=== PATIENT | male | born 1955 | race Caucasian/White ===

== ENCOUNTER 2021-03-18 11:15 | Inpatient (IN) | payer MEDICARE, SELFPAY ==
[2021-03-18] VITALS (45 sets, daily range): BP systolic 58–140; BP diastolic 48–82; PULSE 70–93; RESP 11–27; TEMP 36.1–36.5; O2SAT 79–100; BMI 55.7
--- NOTE | ~2021-03-18 | XR_ITS ---
EXAMINATION: XR hip RT 2V w AP pelvis DATE: 03/31/2021 14:52 INDICATION: Right hip pain TECHNIQUE: Anteroposterior view of the pelvis and anteroposterior and frog-leg lateral views of the r ight hip were obtained. COMPARISON: None. FINDINGS: Alignment is normal. No fracture. Bilateral hip joint spaces are relatively preserved. Mild osteoarth ritis at the bilateral sacroiliac joints. Likely moderate lower lumbar spondylosis. Couple phlebolith s in the left hemipelvis. Atherosclerotic calcifications in the lower abdomen and pelvis and bilatera l inguinal regions. IMPRESSION: 1. No acute osseous abnormality. Reviewed, dictated and finalized at location A.
--- NOTE | ~2021-03-18 | XR_ITS ---
EXAMINATION: XR abdomen/kub 1V DATE: 03/31/2021 14:51 INDICATION: Lower abdominal pain TECHNIQUE: A supine view of the abdomen on 4 radiographs was obtained. COMPARISON: None. FINDINGS: Small amount of gas scattered throughout the large and small bowel with no dilated loops of gas-fille d bowel to suggest obstruction. Couple phleboliths in the left hemipelvis. Moderate lower lumbar spon dylosis. Subcutaneous edema throughout the abdominal wall in both the left and right. IMPRESSION: 1. Normal bowel gas pattern. Reviewed, dictated and finalized at location A.
--- NOTE | ~2021-03-18 | XR_ITS ---
EXAMINATION: XR chest 1V portable DATE: 03/18/2021 12:19 INDICATION: Shortness of breath. TECHNIQUE: A single frontal view of the chest was obtained. COMPARISON: None. FINDINGS: There are airspace opacities in the perihilar regions bilaterally. No pleural effusion or p neumothorax. Cardiomegaly is noted. IMPRESSION: 1. Airspace opacities in the perihilar regions, consistent with pulmonary edema versus pneumonia. 2. Cardiomegaly. Reviewed, dictated and finalized at location A.
--- NOTE | ~2021-03-18 | XR_ITS ---
EXAMINATION: XR chest 1V portable INDICATION: Shortness of breath and cough TECHNIQUE: Portable AP chest at 1336 hours COMPARISON: 03/18/2021 FINDINGS: There is stable cardiomegaly. Perihilar and interstitial opacities persist with slight impr ovement. There is no pleural effusion or pneumothorax. IMPRESSION: 1. Improving perihilar and interstitial airspace opacities, consistent with improved pneumonia versus pulmonary edema. 2. Stable cardiomegaly. Reviewed, dictated and finalized at location A. IMPRESSION: 1. Improving perihilar and interstitial airspace opacities, consistent with imp roved pneumonia versus pulmonary edema. 2. Stable cardiomegaly.
--- NOTE | ~2021-03-18 | CT_ITS ---
EXAMINATION: CT brain wo con DATE: 03/18/2021 13:08 INDICATION: Altered mental status. TECHNIQUE: Computed tomography (CT) of the head was performed without intravenous contrast. The mA wa s adjusted according to patient size. Iterative reconstruction technique was employed. The dose-lengt h product was 1135.00 mGy-cm. COMPARISON: None FINDINGS: There is mild motion artifact. There are scattered areas of low attenuation in the cerebral white matter, which is within normal limits for the patient's age. There is no intracranial hemorrha ge, acute infarction, or abnormal intracranial mass lesion. The ventricles are normal in size. There is mild mucosal thickening in the paranasal sinuses. The orbits are normal. The mastoid air cells are normal. IMPRESSION: 1. Normal aging brain. Reviewed, dictated and finalized at location A. IMPRESSION: 1. Normal aging brain.
--- NOTE | 2021-03-18 11:30 | ECG_ITS ---
Measurements Intervals [place] Rate: 80 P: PA: 0 QRS: 251 QRSD: 186 T: 21 QT: 433 QTc: 502 Interpretive Statements ATRIAL FIBRILLATION RIGHT AXIS DEVIATION RIGHT BUNDLE BRANCH BLOCK BASELINE ARTIFACT- I, II, AVR, V3-V6 ABNORMAL ECG Electronically Signed On 03-18-2021 12:38:00 CDT by Bam Arzate D.O.
[2021-03-18 11:48] LABS: Basophils Absolute Auto 0.1 K/mm3 (0.0-0.1); Basophils Percent Auto 1.1 % (0.2-1.2); Eosinophils Absolute Auto 0.2 K/mm3 (0-0.3); Eosinophils Percent Auto 2.9 % (0-4.4); Hematocrit 32.1 % (42.0-52.0); Hemoglobin 8.5 g/dL (14.0-18.0); Immature Granulocyte Absolute 0.13 K/mm3 (0.00-0.031); Immature Granulocyte Percent A 1.8 % (0-0.5); Lymphocytes Absolute Auto 1.14 K/mm3 (0.9-3.2); Mean Corpuscular HGB Conc 26.5 g/dl (32-36); Mean Corpuscular Hemoglobin 23.3 pg (26-34); Mean Corpuscular Volume 87.9 fl (80-100); Mean Platelet Volume 10.1 fl (7.4-10.4); Monocytes Absolute Auto 1.1 K/mm3 (0.1-0.6); Monocytes Percent Auto 14.9 % (2.6-8.5); Neutrophils Absolute Auto 4.5 K/mm3 (1.3-6.7); Neutrophils Percent Auto 63.3 % (45.5-73.1); Nucleated Red Blood Cells Absolute Auto 0.1 K/mm3 (0.0-0.012); Nucleated Red Blood Cells Perc 0.8 % (0.0-0.2); Platelet Count Result 159 k/mm3 (150-375); Red Blood Count 3.65 M/mm3 (4.6-6.20); Red Cell Distribution Width 22.7 % (11.5-14.5); White Blood Count 7.1 K/mm3 (4.5-10.0)
[2021-03-18 12:01] LABS: Alveolar/Arterial O2 Gradient 91.3 mmHg; Base Excess ABG 13.5 mEq/l (+/-2.0); Carboxyhemoglobin 1.3 % THb (0-2.0); Fractional Inspired Oxygen 40 %; HCO3 ABG 43.8 mEq/l (22.0-26.0); Methemoglobin ABG 0.4 %THb (0-1.5); Oxygen Content ABG 12.7 %vol (16.0-22.0); Oxygen Saturation ABG 91.8 % (95.0-100.0); Oxyhemoglobin 91.3 % THb (90.0-100.0); PO2 ABG 76.3 mmHg (80.0-100.0); PO2 FiO2 Ratio Arterial Blood 1.91 %; Total Hemoglobin 9.8 g/dL (12.0-18.0)
[2021-03-18 12:02] LABS: Device NASAL CANNULA; PCO2 ABG 102.3 mmHg (35.0-45.0); Site Drawn RIGHT BRACHIAL; pH ABG 7.249 (7.350-7.450)
[2021-03-18 12:14] LABS: Anisocytosis 2+ (NORMAL); Hypochromasia 2+ (NORMAL); Platelet Estimate Adequate (Adequate)
[2021-03-18 12:15] LABS: Basophilic Stippling 1+ (NORMAL)
--- NOTE | 2021-03-18 12:51 | ED.SOB ---
HPI - SOB/Dyspnea General Chief Complaint: Shortness of Breath/Dyspnea Stated Complaint: DIFFICULTY BREATHING/AMS Time Seen by Provider: 03/18/21 12:12 Source: family Mode of arrival: EMS Limitations: altered mental status and clinical condition History of Present Illness HPI Narrative: Patient is a 66-year-old male brought in by EMS due to respiratory distress and altered mental status. According to the patient was recently discharged from [facility], was admitted in the ICU, for the same complaints he was diagnosed with elevated CO2 and ammonia. Patient has a history of respiratory failure and CHF. Related Data Home Medications Medication Instructions Recorded Confirmed [id number] 1 cap PO DAILY 03/18/21 acetazolamide 500 mg PO DAILY 03/18/21 bumetanide 1 mg PO BID 03/18/21 03/18/21 ipratropium-albuterol 3 ml INHALATION Q6H PRN 03/18/21 lactulose 10 g PO DAILY 03/18/21 metoprolol tartrate 12.5 mg PO DAILY 03/18/21 montelukast 10 mg PO HS 03/18/21 potassium chloride [Klor-Con M20] 40 meq PO BID 03/18/21 ropinirole 0.25 mg PO HS 03/18/21 warfarin 7.5 mg PO DAILY 03/18/21 Allergies Allergy/AdvReac Type Severity Reaction Status Date / Time No Known Drug Allergies Allergy Verified 03/18/21 14:22 Review of Systems Review of Systems: All systems reviewed & are unremarkable except as noted in HPI and below ROS unobtainable: Yes unobtainable due to medical condition and unobtainable due to mental status PMFSH Comments Past medical history: CHF, COPD, respiratory failure, morbid obesity, hypertension, diabetes, atrial fib Family history: Unknown Social history: Former smoker, recently transferred to a fdc/rehab 2 days ago Exam Const: Limitations: altered mental status Other: Severe distress, morbid obesity, lethargic HENMT: Head: normal to inspection, no contusions and no hematomas General nose exam: Normal nares present Face and sinus: normal facial exam Eyes: Conjunctivae: conjunctivae normal Pupils: Equal, round and reactive pupils present Neck: Neck: normal visual inspection Chest: Chest palpation & inspection: normal inspection of the chest Resp: Other: Respiratory distress, tachypneic, decreased breath sounds bilaterally Cardio: Rate: regular rate Rhythm: regular rhythm GI: Inspection: distended GI Palp: Yes Soft to palpation Skin: General skin exam: normal color, no jaundice and no pallor Neuro: Other: Lethargic Course Vital Signs Vital signs: Vital Signs Temperature 36.5 C 03/18/21 11:11 Pulse Rate 87 03/18/21 11:11 Respiratory Rate 20 03/18/21 11:11 Blood Pressure 123/65 03/18/21 11:11 Pulse Oximetry 98 03/18/21 11:11 Temperature 36.5 C 03/18/21 11:11 Pulse Rate 88 03/18/21 12:35 Respiratory Rate 22 H 03/18/21 12:35 Blood Pressure 123/65 03/18/21 11:11 Pulse Oximetry 98 03/18/21 12:35 MDM - SOB/Dyspnea MDM Narrative Medical decision making narrative: I reviewed his labs, CT head and chest x-ray. Patient's hemoglobin is 8.5 and hematocrit of 32.1. Patient's CO2 is 102 with a pH of 7.24. Patient was placed on BiPAP which markedly improved his condition. Chest x-ray showing pulmonary edema, on BiPAP we will hold Lasix right now since his blood pressure is on the low side. His troponins elevated at 0.286, no STEMI based on EKG, we have no baseline since patient's never been here before, was given aspirin full dose, patient is already on warfarin, hence Lovenox not given. Patient will be admitted for acute respiratory failure. Discussed with the hospitalist and accepted the admit. Differential Diagnosis Differential diagnosis: Likely acute exacerbation of chronic obstructive airways disease, congestive heart failure, community acquired pneumonia, asthma with exacerbation and other (Respiratory failure) Lab Data Attestation: I reviewed the patient's lab results. Result diagrams: 03/18/21 11:33 02/18
[2021-03-18 13:03] LABS: Blood Urea Nitrogen 45 mg/dL (9-20); Calcium 9.1 mg/dL (8.4-10.2); Carbon Dioxide > 40 mmol/L (22-30); Chloride 92 mmol/L (98-107); Estimated Glomerular Filt Rate 47; Glucose 103 mg/dL (75-110); Potassium 3.9 mmol/L (3.4-5.0); Sodium 140 mmol/L (137-145)
[2021-03-18 13:42] LABS: Ammonia 32 umol/L (9-30)
[2021-03-18 13:56] LABS: NT Pro B Type Natriuretic Pept 4800 pg/mL (5-100); Troponin I 0.286 ng/mL (0.000-0.034)
[2021-03-18 15:02] LABS: INR 1.9
[2021-03-18 15:03] LABS: Lactic Acid Reflex 1.5 mmol/L (0.7-2.1)
[2021-03-18 15:04] LABS: Alveolar/Arterial O2 Gradient 56.3 mmHg; Base Excess ABG 11.5 mEq/l (+/-2.0); Carboxyhemoglobin 1.1 % THb (0-2.0); Fractional Inspired Oxygen 30 %; HCO3 ABG 39.5 mEq/l (22.0-26.0); Methemoglobin ABG 0.3 %THb (0-1.5); Oxygen Content ABG 12.3 %vol (16.0-22.0); Oxygen Saturation ABG 91.3 % (95.0-100.0); Oxyhemoglobin 90.5 % THb (90.0-100.0); PO2 ABG 67.7 mmHg (80.0-100.0); PO2 FiO2 Ratio Arterial Blood 2.26 %; Reduced Hemoglobin 8.1 %THb (0-5.0); Total Hemoglobin 9.6 g/dL (12.0-18.0); pH ABG 7.331 (7.350-7.450)
[2021-03-18 15:05] LABS: Device NON-INVASIVE VENT; Modified Allen's Test Pass; Non-Invasive Expiratory Pressure 10 CMH2O; Non-Invasive Inspiratory Pressure 20 CMH2O; Non-Invasive Vent Rate 22 /MIN; PCO2 ABG 76.5 mmHg (35.0-45.0); Site Drawn RIGHT BRACHIAL
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
--- NOTE | 2021-03-18 16:58 | ADMGEN ---
This patient, Stu Andujar, was admitted to IMU Room 204-01. Patient/family oriented to hospital policies and general routines including ID bracelet, bed and alarms, visiting hours, pain management, procedures, bathroom and other care routines, personal items, smoking policy, room service/diet, and visiting hours. Information on how to activate the Rapid Response Team has been discussed. Patient/Family are encouraged to report perceived risks to care and to ask questions if they do not understand what they are told or what they should do.
[2021-03-18] MEDS: ASPIRIN 300 MG SUPPOSITORY RECTAL (17:00)
[2021-03-18 17:59] LABS: Troponin I 0.328 ng/mL (0.000-0.034)
[2021-03-18 20:47] LABS: Base Excess ABG 11.9 mEq/l (+/-2.0); Carboxyhemoglobin 1.1 % THb (0-2.0); Fractional Inspired Oxygen 30 %; HCO3 ABG 38.8 mEq/l (22.0-26.0); Methemoglobin ABG 0.3 %THb (0-1.5); Oxygen Content ABG 11.7 %vol (16.0-22.0); Oxygen Saturation ABG 92.8 % (95.0-100.0); Oxyhemoglobin 91.5 % THb (90.0-100.0); PO2 ABG 68.6 mmHg (80.0-100.0); PO2 FiO2 Ratio Arterial Blood 2.29 %; Reduced Hemoglobin 7.1 %THb (0-5.0); pH ABG 7.383 (7.350-7.450)
[2021-03-18 20:50] LABS: Device NON-INVASIVE VENT; Modified Allen's Test Unable to perform; PCO2 ABG 66.6 mmHg (35.0-45.0); Site Drawn RIGHT RADIAL
[2021-03-18 20:51] LABS: Non-Invasive Expiratory Pressure 10 CMH2O; Non-Invasive Inspiratory Pressure 20 CMH2O; Non-Invasive Vent Rate 22 /MIN
[2021-03-18 21:24] LABS: Troponin I 0.282 ng/mL (0.000-0.034)
[2021-03-18] MEDS: METOPROLOL TARTRATE 12.5 MG TABLET PO (23:36)
[2021-03-18] MEDS: rOPINIRole HCL 0.25 MG TABLET PO (23:37)
[2021-03-18] MEDS: MONTELUKAST SODIUM 10 MG TABLET PO (23:37)
[2021-03-18] MEDS: WARFARIN (*PBKC) 7.5 MG TABLET PO (23:37)
[2021-03-19] VITALS (20 sets, daily range): BP systolic 100–125; BP diastolic 61–85; PULSE 69–104; RESP 16–25; TEMP 36.3–37.1; O2SAT 94–98; BMI 11.0
[2021-03-19 03:47] LABS: Appearance Urine Clear (Clear); Bilirubin Urine 1+ (Negative); Blood Urine 3+ (Negative); Color Urine Yellow (Yellow); Glucose Urine UA Negative (Negative); Ketones Urine Negative (Negative); Leukocyte Esterase Ur Negative LEU/UL (Negative); Nitrate Urine Negative (Negative); Protein Urine 1+ mg/dL (Negative); Specific Grav Ur 1.015 (1.001-1.035); Urobilinogen Urine >=8.0 mg/dL (<2.0); pH Urine 7.5 (5.0-9.0)
[2021-03-19 03:56] LABS: Add Urine Microscopic? YES; Bacteria Urine Trace /hpf; Mucus Urine Rare /lpf; RBC Urine >75 /hpf (0-2); WBC Urine 16-20 /hpf
[2021-03-19 04:36] LABS: Hematocrit 28.7 % (42.0-52.0); Mean Corpuscular HGB Conc 27.9 g/dl (32-36); Mean Corpuscular Hemoglobin 23.1 pg (26-34); Mean Corpuscular Volume 82.9 fl (80-100); Mean Platelet Volume 10.1 fl (7.4-10.4); Platelet Count Result 158 k/mm3 (150-375); Red Blood Count 3.46 M/mm3 (4.6-6.20); Red Cell Distribution Width 23.2 % (11.5-14.5); White Blood Count 7.2 K/mm3 (4.5-10.0)
[2021-03-19 04:50] LABS: INR 2.2
[2021-03-19 05:02] LABS: Alanine Aminotransferase 34 U/L (4-50); Albumin Level 3.4 g/dL (3.5-5.1); Alkaline Phosphatase 88 U/L (38-126); Aspartate Amino Transferase 58 U/L (17-59); Bilirubin,Total 1.7 mg/dL (0.2-1.3); Blood Urea Nitrogen 43 mg/dL (9-20); Calcium 8.9 mg/dL (8.4-10.2); Carbon Dioxide > 40 mmol/L (22-30); Chloride 94 mmol/L (98-107); Estimated CRCL calculation 79 ml/min; Estimated Glomerular Filt Rate 55; Glucose 85 mg/dL (75-110); Magnesium 2.4 mg/dL (1.6-2.3); Phosphorus 3.8 mg/dL (2.5-4.5); Potassium 3.4 mmol/L (3.4-5.0); Sodium 141 mmol/L (137-145)
[2021-03-19 06:32] LABS: Ammonia 48 umol/L (9-30)
[2021-03-19 06:46] LABS: Free T4 Free Thyroxine Reflex 0.86 ng/dL (0.78-2.19)
[2021-03-19 07:50] LABS: Total Triiodothyronine (T3) 0.66 NG/ML (0.97-1.69)
[2021-03-19] MEDS: acetaZOLAMIDE TAB 250 MG TABLET 500 MG BY MOUTH (09:00)
[2021-03-19] MEDS: METOPROLOL TARTRATE 12.5 MG TABLET PO ×2 (09:00→19:57)
[2021-03-19] MEDS: LACTULOSE 20 GM/30 ML UDC PO ×4 (10:46→19:58)
[2021-03-19] MEDS: POTASSIUM CHLORIDE 20 MEQ TABLET.ER 40 MEQ PO ×2 (10:47→17:39)
[2021-03-19] MEDS: BUMETANIDE INJ 1 MG/4 ML VIAL IV PUSH ×2 (10:47→17:39)
--- NOTE | 2021-03-19 14:18 | PM.IMPN ---
Progress Note: A&P Assessment and Plan (1) Acute on chronic respiratory failure with hypoxia and hypercapnia: Code(s): J96.21 - Acute and chronic respiratory failure with hypoxia; J96.22 - Acute and chronic respiratory failure with hypercapnia Status: Acute Assessment and Plan: Patient has been started on BiPAP with improvement in his blood gases. He will remain on BiPAP overnight and he will probably need to be on BiPAP at night exclusively instead of CPAP. ABG SHOW IMPROVEMENT CONTINUES BIPAP AT NIGHTTIME P.R.N. AT DAYTIME (2) CHF exacerbation: Code(s): I50.9 - Heart failure, unspecified Status: Acute Assessment and Plan: Cautious diuresis with close monitoring of renal function, blood pressures, and volume status. Echo results requested from [facility] for review. CONTINUE TO MONITOR INTAKE AND OUTPUT BROWER IN (3) Elevated troponin: Code(s): R77.8 - Other specified abnormalities of plasma proteins Status: Acute Assessment and Plan: Likely related to CHF exacerbation and acute on chronic respiratory failure. No acute changes on EKG and he has no chest pain. Trend to peak. CONTINUE TO MONITOR (4) Encephalopathy: Code(s): G93.40 - Encephalopathy, unspecified Status: Acute Assessment and Plan: Likely due to hypercarbia as he is becoming more alert on BiPAP. Ammonia only slightly elevated. Continue lactulose and repeat ammonia in a.m. LIKELY SECONDARY TO HYPERCARBIA PATIENT ONLY ORIENTED TO PERSON AT THE TIME OF MY VISIT (5) Renal failure: Code(s): N19 - Unspecified kidney failure Status: Acute Assessment and Plan: Patient most likely has chronic renal failure but records have been requested from [facility] for review. Monitor while diuresing. (6) Anemia: Code(s): D64.9 - Anemia, unspecified Status: Acute Assessment and Plan: Patient has chronic anemia. Will continue to trend while hospitalized. (7) Atrial fibrillation: Code(s): I48.91 - Unspecified atrial fibrillation Status: Acute Assessment and Plan: He is rate controlled. ON WARFARIN (8) Chronic anticoagulation: Code(s): Z79.01 - watermelon inspector (current) use of anticoagulants Status: Acute Assessment and Plan: Continue warfarin and monitor INR. (9) Chronic obstructive pulmonary disease: Code(s): J44.9 - Chronic obstructive pulmonary disease, unspecified Status: Acute Assessment and Plan: No acute exacerbation. Continue p.r.n. nebs. NOT ACTIVELY WHEEZING (10) Obstructive sleep apnea: Code(s): G47.33 - Obstructive sleep apnea (adult) (pediatric) Status: Acute Assessment and Plan: BiPAP to be used while hospitalized as above. (11) Morbid obesity: Code(s): E66.01 - Morbid (severe) obesity due to excess calories Status: Acute Assessment and Plan: Patient has been unable to walk from his recent hospitalization. Initiate fall precautions. PT/OT consulted. 1800 CALORIE RESTRICTED DIET Subjective Date/time seen: 03/19/21 14:18 Exam Narrative: Exam Narrative: LAYING IN BED Const: General: ill appearing chronically and patient obtunded Nutritional Appearance: obese morbidly obese Orientation/consciousness: oriented to person Limitations: altered mental status HENMT: Head: normal to inspection and normocephalic Ears: hearing grossly normal bilaterally General nose exam: Normal external nose present Eyes: General: appearance normal, both eyes and all related structures Pupils: Equal, round and reactive pupils present EOM: EOMs intact bilaterally Neck: Neck: normal visual inspection, no lymphadenopathy, supple and no JVD Resp: Effort & Inspection: normal respiratory effort Auscultation: clear to auscultation bilaterally Cardio: Jugular venous distension: no JVD Rate: regular rate Rhythm: regular rhythm Heart sounds: S1
--- NOTE | 2021-03-19 16:40 | PM.CNCAR ---
Assessment and Plan Additional Plan This is a 66-year-old man Admitted to the hospital with confusion and what appears to be CO2 narcosis on his blood gases. With initiation of BiPAP therapy this rapidly improved. He is a gentleman with chronic atrial fibrillation, he has a chronic right bundle branch block and according to his patient resource specialist's notes is known to have left ventricular ejection fraction that is either in the low 50s or high 40s and has been for a number of years. This was just recently re-evaluated last week when he was in the hospital over in [place]. There is no evidence of any new cardiac pathology here that would merit further investigation workup at [facility]. I suspect he was probably sleeping at [facility] without is BiPAP on and for that reason became hypercarbic. The only cardiac recommendations would be to continue the modest dose of metoprolol that is being used for rate control and warfarin for systemic anticoagulation. Victorino Santizo MD [facility] History of Present Illness History of Present Illness Consult date/time: 03/19/21 16:40 Consult reason: atrial fibrillation Reason For Visit: Acute respiratory failure/pulmonary edema Narrative: This is a 66-year-old man I am seeing at the request of the hospitalist because of atrial fibrillation and right bundle branch block. The patient is known to the cardiovascular physicians at [facility] up in [place] and was hospitalized here yesterday when he was just at [facility] for something like 24 hours after a recent discharge from the hospital over in [place]. According to the records he is known to have morbid obesity with obstructive sleep apnea and a history of hypercarbic respiratory failure as a result of that. He supposed to be on either a CPAP or a BiPAP mask and was sent [facility] yesterday because of what appears to be CO2 narcosis. Patient's blood gas on admission showed a respiratory acidosis with a CO2 level of 102 which were corrected nicely with BiPAP treatment and he became much more responsive. He was sent here from [facility] with that picture of poorly responsiveness. His electrocardiogram shows atrial fibrillation and right bundle branch block his chest x-ray shows an enlarged cardiac silhouette. The patient has a history of low my Petterchak mildly reduced or low normal left ventricular ejection fraction according to the patient resource specialist note from [place]. His ejection fraction has been in the high 40s to low 50s for a long time. The patient has worsening ability to care for himself his was unable to care for him because of his massive obesity and need for that reason has recently been institutionalized. He is awake alert conversant at this time and seems to be aware that he is in the hospital but not aware and alert to other spheres. He is not reporting any other cardiac symptomatology currently. Review of Systems Review of Systems: ROS unobtainable: Yes unobtainable due to mental status PMFSH Past Medical History Medical History (Updated 03/18/21 @ 21:32 by Juana Rahman PA-C) Atrial fibrillation Chronic anticoagulation Chronic obstructive pulmonary disease On 4 liters nasal cannula. Chronic respiratory failure Congestive heart failure Degenerative disc disease Folate deficiency Gastroesophageal reflux disease Morbid obesity Obstructive sleep apnea Pulmonary hypertension Secondary polycythemia Tobacco dependence Surgical History Surgical History History of orthopedic surgery ORIF bilateral ankle fracture. History of tonsillectomy Family History Family History (Updated 03/18/21 @ 21:20 by Juana Rahman PA-C) Other Unknown family medical history Social History Social History (Updated 03/18/21 @ 21:22 by Juana Rahman PA-C) Social History: The patient lives in [place] with his , Betty. He has 1 grown daughter.
[2021-03-19] MEDS: WARFARIN (*PBKC) 7.5 MG TABLET PO (18:13)
[2021-03-19] MEDS: rOPINIRole HCL 0.25 MG TABLET PO (19:57)
[2021-03-19] MEDS: MONTELUKAST SODIUM 10 MG TABLET PO (19:58)
[2021-03-20] VITALS (19 sets, daily range): BP systolic 100–117; BP diastolic 59–81; PULSE 59–81; RESP 20–26; TEMP 36.1–36.7; O2SAT 92–100; BMI 10.0
--- NOTE | 2021-03-20 | ECHO_ITS ---
Patient Info Name: Stu Andujar Age: 66 years : 1955 Gender: Male Ht: 70 in Wt: 388 lbs BSA: 3.05 m2 HR: 82 bpm BP: 107 / 67 mmHg Heart Rhythm: Atrial Fibrillation Technical Quality: Good Exam Date: 03/20/2021 1:39 PM Exam Location: [facility] Pulmonary Patient Status: Inpatient Admit Date: 03/18/2021 Staff Ordering Physician: Tyler Stone MD Rn Occupational Health: David Chavez, DEE DEE, RT Attending Provider: Asmita Rodríguez MD Referring Physician: Bertha FLEMING; Exam Type: CA echo dop color flow w con Study Info Indications I50.9 - Heart failure, unspecified Complete two-dimensional, color flow and Doppler transthoracic echocardiogram is performed with contrast to opacify the left ventricle and to improve the deliniation of the left ventricle endocardial borders. Summary 1. Left ventricular chamber dimension is severely enlarged. 2. Left ventricular systolic function is moderately reduced, estimated at 35-40%. 3. There is moderately increased left ventricular wall thickness. 4. The left ventricular diastolic function is indeterminate. 5. Right ventricular chamber dimension is moderately enlarged. 6. Right ventricular systolic function is reduced. 7. Left atrial chamber dimension is severely enlarged. 8. Right atrial chamber dimension is severely enlarged. 9. There is moderate to severe mitral valve regurgitation. 10. There is mild tricuspid valve regurgitation. 11. Moderate pulmonary hypertension, estimated pulmonary arterial systolic pressure is 50 mmHg. 12. The aortic root size at the sinus of Valsalva is mildly dilated. 13. There is mild aortic atherosclerosis. 14. Dilated inferior vena cava with <50% collapse upon inspiration consistent with elevated right atrial pressure, 20 mmHg. Left Ventricle Left ventricular chamber dimension is severely enlarged. Left ventricular systolic function is moderately reduced, estimated at 35-40%. There is moderately increased left ventricular wall thickness. The left ventricular diastolic function is indeterminate. Right Ventricle Right ventricular chamber dimension is moderately enlarged. Right ventricular systolic function is reduced. Left Atria Left atrial chamber dimension is severely enlarged. Right Atria Right atrial chamber dimension is severely enlarged. Atrial Septum Intact interatrial septum visualized by color flow imaging. Aortic Valve The aortic valve is trileaflet. There is mild aortic valve sclerosis. There is no aortic valve stenosis. There is trace aortic valve regurgitation. Pulmonic Valve The pulmonic valve is normal. There is no pulmonic valve stenosis. There is trace pulmonic regurgitation. Mitral Valve The mitral valve has thickened leaflets. There is no mitral valve stenosis. There is moderate to severe mitral valve regurgitation. Tricuspid Valve The tricuspid valve leaflets are normal. There is no significant tricuspid valve stenosis. There is mild tricuspid valve regurgitation. Moderate pulmonary hypertension, estimated pulmonary arterial systolic pressure is 50 mmHg. Pericardium/Pleural The pericardium appears normal. There is no pericardial effusion. Inferior Vena Cava Dilated inferior vena cava with <50% collapse upon inspiration consistent with elevated right atrial pressure, 20 mmHg. Aorta The aortic root size at the sinus of Valsalva is mildly dilated. There is mild aortic atherosclerosis. Left Ventricular Outflow Tract ----
[2021-03-20] MEDS: POTASSIUM CHLORIDE 20 MEQ TABLET.ER 40 MEQ PO ×2 (08:09→18:17)
[2021-03-20] MEDS: METOPROLOL TARTRATE 12.5 MG TABLET PO ×2 (08:09→21:07)
[2021-03-20] MEDS: acetaZOLAMIDE TAB 250 MG TABLET 500 MG BY MOUTH (08:09)
[2021-03-20] MEDS: BUMETANIDE INJ 1 MG/4 ML VIAL IV PUSH ×2 (08:09→18:17)
[2021-03-20] MEDS: LACTULOSE 20 GM/30 ML UDC PO ×4 (08:10→21:08)
--- NOTE | 2021-03-20 09:05 | P.CDI_ITS ---
CDI Query Clarification Request Encephalopathy has been documented, please clarify type if known: * metabolic * toxic * other * unknown <CARLOS Baca - Last Filed: 03/20/21 09:07> Clarified Diagnosis (1) Metabolic encephalopathy: Code(s): G93.41 - Metabolic encephalopathy <CARLOS Baca - Last Filed: 03/20/21 09:07> Status: Acute <CARLOS Baca - Last Filed: 03/20/21 09:07>
--- NOTE | 2021-03-20 10:29 | PM.IMPN ---
Progress Note: A&P Assessment and Plan (1) Acute on chronic respiratory failure with hypoxia and hypercapnia: Code(s): J96.21 - Acute and chronic respiratory failure with hypoxia; J96.22 - Acute and chronic respiratory failure with hypercapnia Status: Acute Assessment and Plan: Patient has been started on BiPAP with improvement in his blood gases. He will remain on BiPAP overnight and he will probably need to be on BiPAP at night exclusively instead of CPAP. ABG SHOW IMPROVEMENT CONTINUES BIPAP AT NIGHTTIME P.R.N. AT DAYTIME consult pulmonary for further recommendations (2) CHF exacerbation: Code(s): I50.9 - Heart failure, unspecified Status: Acute Assessment and Plan: Cautious diuresis with close monitoring of renal function, blood pressures, and volume status. Echo results requested from [place] for review. cont current care cardio following (3) Elevated troponin: Code(s): R77.8 - Other specified abnormalities of plasma proteins Status: Acute Assessment and Plan: Likely related to CHF exacerbation and acute on chronic respiratory failure. seen by cardiology and no new recs given (4) Encephalopathy: Code(s): G93.40 - Encephalopathy, unspecified Status: Acute Assessment and Plan: Likely due to hypercarbia as he is becoming more alert on BiPAP. Ammonia only slightly elevated. Continue lactulose and repeat ammonia in a.m. LIKELY SECONDARY TO HYPERCARBIA (5) Renal failure: Code(s): N19 - Unspecified kidney failure Status: Acute Assessment and Plan: Patient most likely has chronic renal failure but records have been requested from [place] for review. Monitor while diuresing. (6) Anemia: Code(s): D64.9 - Anemia, unspecified Status: Acute Assessment and Plan: Patient has chronic anemia. Will continue to trend while hospitalized. (7) Atrial fibrillation: Code(s): I48.91 - Unspecified atrial fibrillation Status: Acute Assessment and Plan: He is rate controlled. ON WARFARIN (8) Chronic anticoagulation: Code(s): Z79.01 - shelter (current) use of anticoagulants Status: Acute Assessment and Plan: Continue warfarin and monitor INR. (9) Chronic obstructive pulmonary disease: Code(s): J44.9 - Chronic obstructive pulmonary disease, unspecified Status: Acute Assessment and Plan: No acute exacerbation. Continue p.r.n. nebs. NOT ACTIVELY WHEEZING (10) Obstructive sleep apnea: Code(s): G47.33 - Obstructive sleep apnea (adult) (pediatric) Status: Acute Assessment and Plan: BiPAP to be used while hospitalized as above. (11) Morbid obesity: Code(s): E66.01 - Morbid (severe) obesity due to excess calories Status: Acute Assessment and Plan: Patient has been unable to walk from his recent hospitalization. Initiate fall precautions. PT/OT consulted. 1800 CALORIE RESTRICTED DIET Additional Plan 03/20/2021 Patient admitted with acute exacerbation of CHF and acute hypoxemic hypercapnic respiratory failure with AMS. He remains on BiPAP. His case has been reviewed with respiratory therapy and RN. He is noted to be BiPAP dependent at this time although no repeat ABGs have been performed. Order placed for Dr. Arauz's expert consultation. Continue current care Patient will require ongoing inpatient hospitalization. Time Spent With Patient Time with patient: 25 - 35 minutes Subjective Date/time seen: 03/20/21 10:29 Patient has no complaints at time of my interview. He is able to tell me who the enrollment services vice president is and the year, however, he is unclear about where he lives. Exam Narrative: Exam Narrative: LAYING IN BED Const: General: ill appearing chronically Nutritional Appearance: obese morbidly obese Orientation/consciousness: oriented to person, oriented to time and confusio
--- NOTE | 2021-03-20 11:55 | PM.CNPUL ---
Assessment and Plan Assessment and plan (1) Acute on chronic respiratory failure with hypoxia and hypercapnia: Code(s): J96.21 - Acute and chronic respiratory failure with hypoxia; J96.22 - Acute and chronic respiratory failure with hypercapnia Status: Acute Assessment and Plan: Patient with a history of morbid obesity and now with acute on chronic hypercarbic and hypoxemic respiratory failure. The patient has alveolar hypoventilation syndrome in addition to his reported obstructive sleep apnea and fluid overload with a blood gas of 7.25/102/76 on 5 L nasal cannula on presentation. the patient has chronic hypercarbic respiratory failure and would benefit from noninvasive ventilation to prevent further deterioration and hospitalizations. the patient said the BiPAP 20/10 was uncomfortable and I have placed him on AVAPS mode rate of 18/tidal volume 550, EPAP 10, inspiratory pressure min 11, inspiratory pressure max 25, inspiratory time 1.0 seconds, rise 3, 30% FIO2. I will check a blood gas in the morning to assess his ventilation and oxygenation. I agree with aggressive diuresis as tolerated by hospitalist and aurist team. Patient currently on Bumex and acetazolamide. will follow his pH and bicarb on these medicines. I do not think the patient has an active pneumonia and do not think he needs antibiotics from a respiratory viewpoint. I do not think the patient has a COPD exacerbation and do not feel he needs bronchodilators or inhaled or systemic steroids at this point. discussed with Dr. Reddy. Will follow with you. History of Present Illness History of Present Illness Consult date: 03/20/21 Requesting physician: Chana Reddy MD Reason for consult: hypoxemia Chief complaint: Acute respiratory failure/pulmonary edema Narrative: This is a new pulmonary consult for hypoxemic and hypercarbic respiratory failure. Cyst 66-year-old man with a history of morbid obesity, Afib on warfarin, obstructive sleep apnea on CPAP for about 5 years presented to the hospital with altered mental status and acute on chronic hypercarbic and hypoxemic respiratory failure. Patient was living at home until about 3 weeks ago and then was admitted to an outside hospitals ICU according to the daughter. At that time the patient was diuresed aggressively and he was debilitated and was sent to [facility]. Patient had been at the half-way for a few days when he had an altered mental status and was sent to the emergency department and had a blood gas of 7.25/102/76 on 5 L nasal cannula. Patient was placed on BiPAP 20/10 with 30% and his blood gas 7.33/77/68 and a repeat 5 hours later was 7 pH of 7.38/66/68. Patient has been diuresed with Lasix IV. 03/20/2021 today when I talked to the patient he denies fever, chills, cough, rigors, chest pain, phlegm production or hemoptysis. He is currently wearing BiPAP 20/10 but says that the pressure is too much for him. I changed him to an AVAPS mode rate of 18/tidal volume 550, EPAP 10, inspiratory pressure min 11, inspiratory pressure max 25, inspiratory time 1.0 seconds, rise 3. He stated that these settings felt much better. Patient was awakened requesting the BiPAP off and we placed him on 2 L nasal cannula saturations are 96%. The daughter states that he has been wearing CPAP for about 5 years she does not know the settings and the patient thinks that [employer] is his [employer] company. I have no sleep studies are no downloads at this point. Patient states that he uses oxygen during the day but does not know how much and he also uses oxygen with his CPAP but does not know how much. Patient smoked tobacco from age 16 to about 10 years ago and he quit intermittently throughout that period, he is exposed to secondhand smoke through his he has no exposure to marijuana, electronic cigarettes, illicit drug use, sandblasting, wel
[2021-03-20] MEDS: PERFLUTREN LIPID MICROSPHERES 1.5 ML VIAL DILUTED TO 10 ML TOTAL VOLUME IV PUSH (14:22)
[2021-03-20] MEDS: ACETAMINOPHEN 325 MG TABLET 650 MG PO (15:24)
[2021-03-20] MEDS: WARFARIN (*PBKC) 7.5 MG TABLET PO (18:17)
[2021-03-20] MEDS: MONTELUKAST SODIUM 10 MG TABLET PO (21:07)
[2021-03-20] MEDS: rOPINIRole HCL 0.25 MG TABLET PO (21:07)
[2021-03-21] VITALS (25 sets, daily range): BP systolic 98–134; BP diastolic 46–90; PULSE 58–99; RESP 14–20; TEMP 36.1–36.8; O2SAT 91–100
[2021-03-21 04:53] LABS: Basophils Absolute Auto 0.1 K/mm3 (0.0-0.1); Eosinophils Absolute Auto 0.3 K/mm3 (0-0.3); Eosinophils Percent Auto 4.7 % (0-4.4); Hematocrit 29.7 % (42.0-52.0); Hemoglobin 8.1 g/dL (14.0-18.0); Immature Granulocyte Absolute 0.03 K/mm3 (0.00-0.031); Immature Granulocyte Percent A 0.5 % (0-0.5); Lymphocytes Absolute Auto 1.28 K/mm3 (0.9-3.2); Lymphocytes Percent Auto 20.7 % (18.3-44.2); Mean Corpuscular HGB Conc 27.3 g/dl (32-36); Mean Corpuscular Volume 84.4 fl (80-100); Mean Platelet Volume 9.7 fl (7.4-10.4); Monocytes Absolute Auto 0.8 K/mm3 (0.1-0.6); Monocytes Percent Auto 13.1 % (2.6-8.5); Neutrophils Absolute Auto 3.7 K/mm3 (1.3-6.7); Nucleated Red Blood Cells Perc 0.3 % (0.0-0.2); Platelet Count Result 155 k/mm3 (150-375); Red Blood Count 3.52 M/mm3 (4.6-6.20); Red Cell Distribution Width 22.7 % (11.5-14.5); White Blood Count 6.2 K/mm3 (4.5-10.0)
[2021-03-21 05:02] LABS: Blood Urea Nitrogen 35 mg/dL (9-20); CRP 3.4 mg/dL (<1.0); Calcium 8.5 mg/dL (8.4-10.2); Carbon Dioxide > 40 mmol/L (22-30); Chloride 95 mmol/L (98-107); Estimated CRCL calculation 85 ml/min; Estimated Glomerular Filt Rate 60; Glucose 88 mg/dL (75-110); Magnesium 2.1 mg/dL (1.6-2.3); Potassium 3.5 mmol/L (3.4-5.0); Sodium 142 mmol/L (137-145)
[2021-03-21 05:13] LABS: Alveolar/Arterial O2 Gradient 53.5 mmHg; Base Excess ABG 8.9 mEq/l (+/-2.0); Fractional Inspired Oxygen 30 %; HCO3 ABG 36.1 mEq/l (22.0-26.0); Oxygen Content ABG 12.5 %vol (16.0-22.0); Oxygen Saturation ABG 95.2 % (95.0-100.0); Oxyhemoglobin 93.9 % THb (90.0-100.0); PO2 FiO2 Ratio Arterial Blood 2.73 %; Total Hemoglobin 9.4 g/dL (12.0-18.0)
[2021-03-21 05:15] LABS: Modified Allen's Test Pass; PCO2 ABG 66.7 mmHg (35.0-45.0); Site Drawn LEFT RADIAL
[2021-03-21 05:16] LABS: Device OTHER DEVICE
[2021-03-21 05:19] LABS: pH ABG 7.351 (7.350-7.450)
[2021-03-21 05:44] LABS: Anisocytosis 1+ (NORMAL); Atypical Lymphocytes Present; Platelet Estimate Adequate (Adequate)
[2021-03-21] MEDS: BUMETANIDE INJ 1 MG/4 ML VIAL IV PUSH (08:21)
[2021-03-21] MEDS: POTASSIUM CHLORIDE 20 MEQ TABLET.ER 40 MEQ PO ×2 (08:21→16:28)
[2021-03-21] MEDS: LACTULOSE 20 GM/30 ML UDC PO ×4 (08:21→20:49)
[2021-03-21] MEDS: METOPROLOL TARTRATE 12.5 MG TABLET PO ×2 (08:21→20:49)
[2021-03-21] MEDS: acetaZOLAMIDE TAB 250 MG TABLET 500 MG BY MOUTH (08:22)
[2021-03-21] MEDS: ACETAMINOPHEN 325 MG TABLET 650 MG PO (08:23)
--- NOTE | 2021-03-21 10:11 | PM.PNPUL ---
Progress Note: A&P Assessment and Plan (1) Acute on chronic respiratory failure with hypoxia and hypercapnia: Code(s): J96.21 - Acute and chronic respiratory failure with hypoxia; J96.22 - Acute and chronic respiratory failure with hypercapnia Status: Acute Assessment and Plan: 03/20 Patient with a history of morbid obesity and now with acute on chronic hypercarbic and hypoxemic respiratory failure. The patient has alveolar hypoventilation syndrome in addition to his reported obstructive sleep apnea and fluid overload with a blood gas of 7.25/102/76 on 5 L nasal cannula on presentation. He also has biventricular failure with moderately enlarged RV with PASP 50 and moderate to severe MR. The patient has chronic hypercarbic respiratory failure from alveolar hypoventilation and morbid obesity and would benefit from noninvasive ventilation to prevent further deterioration and hospitalizations. The patient said the BiPAP 20/10 woith 30% with ABG of 7.38/67/69 but was uncomfortable and I have placed him on AVAPS mode rate of 18/tidal volume 550, EPAP 10, inspiratory pressure min 11, inspiratory pressure max 25, inspiratory time 1.0 seconds, rise 3, 30% FIO2. I will check a blood gas in the morning to assess his ventilation and oxygenation. I do not think the patient has an active pneumonia and do not think he needs antibiotics from a respiratory viewpoint. I do not think the patient has a COPD exacerbation and do not feel he needs bronchodilators or inhaled or systemic steroids at this point. 03/21 Patient wore AVAPS mode respiratory rate 18, tidal volume 550, EPAP 10, IPAP min 11, IPAP max 25, 30%, inspiratory time 1.0 seconds, rise 3 overnight with ABG at the end of the night of 7.35/68/82. He has LVEF 35-40%, moderately enlarged RV with reduced function, severely enlarged RA and LA, moderate to severe MR, mild TR with PASP 50. I obtained a download from his [employer] from 12/15-03/14. Patient was wearing CPAP 17 up until 03/03 every night with an average usage days used of 10 10 hours and 18 minutes. His AHI was 2.3, his apnea index was 1.4, his hypopnea index was 0.9. His central apnea index was 0.1, obstructive apnea index 0.1 he had no Quirino-Moore his median leak was 22.3, 95th percentile leak was 55.8 and his maximum leak was 67.1. Overall sara has been compliant but CPAP is not sufficient to treat his obesity hypoventilation syndrome and now requires noninvasive ventilation. Will increase AVAPS RR to 22 and obtain apnea link tonight on 30%. Will follow with you. (2) Fluid overload: Code(s): E87.70 - Fluid overload, unspecified Status: Acute Assessment and Plan: I agree with aggressive diuresis as tolerated by hospitalist and hand finisher team. Patient currently on Bumex 1 IV BID and acetazolamide 500 PO Q day. 03/18 Minus 350 03/19 minus 1660 03/20 minus 1320, will discuss DC acetazolamide with hosptialist. Subjective Date/time seen: 03/21/21 10:11 Interval history: 03/20 This is a new pulmonary consult for hypoxemic and hypercarbic respiratory failure. 66-year-old man with a history of morbid obesity, Afib on warfarin, obstructive sleep apnea on CPAP for about 5 years presented to the hospital with altered mental status and acute on chronic hypercarbic and hypoxemic respiratory failure. Patient was living at home until about 3 weeks ago and then was admitted to an outside hospitals ICU according to the daughter. At that time the patient was diuresed aggressively and he was debilitated and was sent to [facility]. [facility] a [facility] days when he had an altered mental status and was sent to the emergency department and had a blood gas of 7.25/102/76 on 5 L nasal cannula. Patient was placed on BiPAP 20/10 with 30% and his blood gas 7.33/77/68 and a repeat 5 hours later was 7 pH of 7.38/66/68. Patient has been diuresed with Lasix IV.
[2021-03-21 11:37] LABS: INR 3.5; Prothrombin Time 35.4 Seconds (11.1-14.7)
--- NOTE | 2021-03-21 12:50 | PM.IMPN ---
Progress Note: A&P Assessment and Plan (1) Metabolic encephalopathy: Code(s): G93.41 - Metabolic encephalopathy Status: Acute (2) Fluid overload: Code(s): E87.70 - Fluid overload, unspecified Status: Acute (3) Anemia: Code(s): D64.9 - Anemia, unspecified Status: Acute (4) Renal failure: Code(s): N19 - Unspecified kidney failure Status: Acute (5) Elevated troponin: Code(s): R77.8 - Other specified abnormalities of plasma proteins Status: Acute (6) CHF exacerbation: Code(s): I50.9 - Heart failure, unspecified Status: Acute (7) Acute on chronic respiratory failure with hypoxia and hypercapnia: Code(s): J96.21 - Acute and chronic respiratory failure with hypoxia; J96.22 - Acute and chronic respiratory failure with hypercapnia Status: Acute (8) Gastroesophageal reflux disease: Code(s): K21.9 - Gastro-esophageal reflux disease without esophagitis Status: Acute (9) Pulmonary hypertension: Code(s): I27.20 - Pulmonary hypertension, unspecified Status: Acute (10) Chronic obstructive pulmonary disease: Code(s): J44.9 - Chronic obstructive pulmonary disease, unspecified Status: Acute (11) Chronic anticoagulation: Code(s): Z79.01 - [facility] (current) use of anticoagulants Status: Acute (12) Atrial fibrillation: Code(s): I48.91 - Unspecified atrial fibrillation Status: Acute (13) Tobacco dependence: Code(s): F17.200 - Nicotine dependence, unspecified, uncomplicated Status: Acute (14) Obstructive sleep apnea: Code(s): G47.33 - Obstructive sleep apnea (adult) (pediatric) Status: Acute (15) Congestive heart failure: Code(s): I50.9 - Heart failure, unspecified Status: Acute (16) Morbid obesity: Code(s): E66.01 - Morbid (severe) obesity due to excess calories Status: Acute (17) Acute hypercapnic respiratory failure: Code(s): J96.02 - Acute respiratory failure with hypercapnia Status: Acute (18) Carbon dioxide narcosis: Code(s): R06.89 - Other abnormalities of breathing Status: Acute (19) Pulmonary edema: Qualifiers: Chronicity: acute Qualified Code(s): J81.0 - Acute pulmonary edema Code(s): J81.1 - Chronic pulmonary edema Status: Acute Additional Plan 03/20/2021 Patient admitted with acute exacerbation of CHF and acute hypoxemic hypercapnic respiratory failure with AMS. He remains on BiPAP. His case has been reviewed with respiratory therapy and RN. He is noted to be BiPAP dependent at this time although no repeat ABGs have been performed. Order placed for Dr. Arauz's expert consultation. Continue current care Patient will require ongoing inpatient hospitalization. 03/21/21 pt improving cardiology on board will follow recs for BiVent systolic failure intermittent bipap change diuretics to lasix 40mg IV BID c/s career specialist for assistance w LTAC (BiPAP dependent, needs agressive rehab) Subjective Date/time seen: 03/21/21 12:50 pt starting to feel better complains of all over body ache chronic usually takes Tylenol but not working now. POC reviewed at length w pulmonology recs appreciated Interval history: 03/20 This is a new pulmonary consult for hypoxemic and hypercarbic respiratory failure. 66-year-old man with a history of morbid obesity, Afib on warfarin, obstructive sleep apnea on CPAP for about 5 years presented to the hospital with altered mental status and acute on chronic hypercarbic and hypoxemic respiratory failure. Patient was living at home until about 3 weeks ago and then was admitted to an outside hospitals ICU according to the daughter. At that time the patient was diuresed aggressively and he was debilitated and was sent to [facility]. Patient had been at the assisted for a few days when he had an altered mental status and was sen
[2021-03-21] MEDS: FUROSEMIDE INJ 40 MG/4 ML VIAL IV PUSH (16:28)
[2021-03-21] MEDS: traMADol HCL (*CRX) 50 MG TABLET PO (16:29)
[2021-03-21] MEDS: rOPINIRole HCL 0.25 MG TABLET PO (20:49)
[2021-03-21] MEDS: MONTELUKAST SODIUM 10 MG TABLET PO (20:49)
[2021-03-22] VITALS (20 sets, daily range): BP systolic 102–124; BP diastolic 30–90; PULSE 55–96; RESP 19–24; TEMP 35.9–36.7; O2SAT 94–99; BMI 57.5
[2021-03-22 08:19] LABS: INR 3.5; Prothrombin Time 35.8 Seconds (11.1-14.7)
[2021-03-22] MEDS: FUROSEMIDE INJ 40 MG/4 ML VIAL IV PUSH ×2 (09:43→17:11)
[2021-03-22] MEDS: LACTULOSE 20 GM/30 ML UDC PO ×3 (09:44→21:10)
[2021-03-22] MEDS: METOPROLOL TARTRATE 12.5 MG TABLET PO ×2 (09:44→21:11)
[2021-03-22] MEDS: POTASSIUM CHLORIDE 20 MEQ TABLET.ER 40 MEQ PO ×2 (09:44→17:11)
--- NOTE | 2021-03-22 12:03 | PM.PNPUL ---
Progress Note: A&P Assessment and Plan (1) Acute on chronic respiratory failure with hypoxia and hypercapnia: Code(s): J96.21 - Acute and chronic respiratory failure with hypoxia; J96.22 - Acute and chronic respiratory failure with hypercapnia Status: Acute Assessment and Plan: 03/20 Patient with a history of morbid obesity and now with acute on chronic hypercarbic and hypoxemic respiratory failure. The patient has alveolar hypoventilation syndrome in addition to his reported obstructive sleep apnea and fluid overload with a blood gas of 7.25/102/76 on 5 L nasal cannula on presentation. He also has biventricular failure with moderately enlarged RV with PASP 50 and moderate to severe MR. The patient has chronic hypercarbic respiratory failure from alveolar hypoventilation and morbid obesity and would benefit from noninvasive ventilation to prevent further deterioration and hospitalizations. The patient said the BiPAP 20/10 woith 30% with ABG of 7.38/67/69 but was uncomfortable and I have placed him on AVAPS mode rate of 18/tidal volume 550, EPAP 10, inspiratory pressure min 11, inspiratory pressure max 25, inspiratory time 1.0 seconds, rise 3, 30% FIO2. I will check a blood gas in the morning to assess his ventilation and oxygenation. I do not think the patient has an active pneumonia and do not think he needs antibiotics from a respiratory viewpoint. I do not think the patient has a COPD exacerbation and do not feel he needs bronchodilators or inhaled or systemic steroids at this point. 03/21 Patient wore AVAPS mode respiratory rate 18, tidal volume 550, EPAP 10, IPAP min 11, IPAP max 25, 30%, inspiratory time 1.0 seconds, rise 3 overnight with ABG at the end of the night of 7.35/68/82. He has LVEF 35-40%, moderately enlarged RV with reduced function, severely enlarged RA and LA, moderate to severe MR, mild TR with PASP 50. I obtained a download from his [employer] from 12/15-03/14. Patient was wearing CPAP 17 up until 03/03 every night with an average usage days used of 10 10 hours and 18 minutes. His AHI was 2.3, his apnea index was 1.4, his hypopnea index was 0.9. His central apnea index was 0.1, obstructive apnea index 0.1 he had no Quirino-Moore his median leak was 22.3, 95th percentile leak was 55.8 and his maximum leak was 67.1. Overall sara has been compliant but CPAP is not sufficient to treat his obesity hypoventilation syndrome and now requires noninvasive ventilation. Will increase AVAPS RR to 22 and obtain apnea link tonight on 30%. 6/4 Feeling better today. Wore AVAPS mode respiratory rate 18, tidal volume 550, EPAP 10, IPAP min 11, IPAP max 25, 30%, inspiratory time 1.0 seconds, rise 3 overnight and did well. Overnight oximetry demonstrated a average saturation of 95%, lowest saturation was 91%. Time with saturation less than or equal to 88% was 0 minutes. Reordered RR increase to 22. While at [place] continue AVAPS mode respiratory rate 22, tidal volume 550, EPAP 10, IPAP min 11, IPAP max 25, FIO2 30%, inspiratory time 1.0 seconds, rise 3 overnight at night and when sleeps during day. [facility] may or may not be able to support AVAPS-AE noninvasive ventilation which would be best for patient. If they do not administter AVAPS AE NIV then he should be discharged on BiPAP 20/10 with 3 L bleed in. Ready for discharge from pulmonary perspective on: Trilogy with AVAPS-AE respiratory rate 22, tidal volume 550, EPAP min 8, EPAP max 18, PSV min 5, PSV max 25, inspiratory time 1.0 seconds, 3 liters bleed in. If trilogy not supported then BiPAP with back up rate 22, IPAP 20, EPAP 10, 3 liters bleed in. Discussed with Dr. Reddy, will sign off, call with questions. (2) Fluid overload: Code(s): E87.70 - Fluid overload, unspecified Status: Acute Assessment and Plan: I agree with aggressive diuresis as tolerated by hospitalist and full service supervisor team. Patient currently on Bumex 1 IV BID and
--- NOTE | 2021-03-22 15:38 | PC.NURSE ---
This patient, Stu Andujar, was transferred to [facility] on 03/22/21 at 1530. Personal belongings sent with patient. Report given to Dennise REINA. Appropriate documentation sent with patient.
[2021-03-22 16:59] LABS: Glucose Point of Care 137 mg/dl (65-105)
[2021-03-22 17:34] LABS: Hematocrit 32.4 % (42.0-52.0); Hemoglobin 8.7 g/dL (14.0-18.0); Mean Corpuscular HGB Conc 26.9 g/dl (32-36); Mean Corpuscular Hemoglobin 23.4 pg (26-34); Mean Corpuscular Volume 87.1 fl (80-100); Mean Platelet Volume 9.3 fl (7.4-10.4); Platelet Count Result 132 k/mm3 (150-375); Red Blood Count 3.72 M/mm3 (4.6-6.20); Red Cell Distribution Width 22.5 % (11.5-14.5); White Blood Count 6.9 K/mm3 (4.5-10.0)
[2021-03-22 17:42] LABS: Ammonia 81 umol/L (9-30)
--- NOTE | 2021-03-22 17:44 | PC.NURSE ---
This patient, Stu Andujar, was received from IMU on 03/22/21 at 1530. Patient/family oriented to unit policies and routines. Report received from Kateryna REINA.
[2021-03-22 17:46] LABS: Alanine Aminotransferase 23 U/L (4-50); Albumin Level 3.6 g/dL (3.5-5.1); Alkaline Phosphatase 82 U/L (38-126); Anion Gap 7 mmol/L (8-16); Aspartate Amino Transferase 32 U/L (17-59); Bilirubin,Total 1.5 mg/dL (0.2-1.3); Blood Urea Nitrogen 30 mg/dL (9-20); Calcium 8.7 mg/dL (8.4-10.2); Carbon Dioxide 39 mmol/L (22-30); Chloride 96 mmol/L (98-107); Estimated CRCL calculation 87 ml/min; Estimated Glomerular Filt Rate 60; Glucose 142 mg/dL (75-110); Potassium 4.4 mmol/L (3.4-5.0); Sodium 142 mmol/L (137-145)
[2021-03-22] MEDS: rOPINIRole HCL 0.25 MG TABLET PO (21:11)
[2021-03-22] MEDS: MONTELUKAST SODIUM 10 MG TABLET PO (21:11)
[2021-03-23] VITALS (17 sets, daily range): BP systolic 104–112; BP diastolic 57–87; PULSE 54–115; RESP 18–24; TEMP 36.3–36.8; O2SAT 93–100
[2021-03-23 00:03] LABS: Glucose Point of Care 142 mg/dl (65-105)
[2021-03-23 06:40] LABS: Basophils Percent Auto 0.6 % (0.2-1.2); Eosinophils Absolute Auto 0.3 K/mm3 (0-0.3); Eosinophils Percent Auto 4.5 % (0-4.4); Hematocrit 30.7 % (42.0-52.0); Hemoglobin 8.2 g/dL (14.0-18.0); Immature Granulocyte Absolute 0.03 K/mm3 (0.00-0.031); Immature Granulocyte Percent A 0.4 % (0-0.5); Immature Platelet Fraction Pct 2.7 % (0.9-11.2); Lymphocytes Absolute Auto 1.25 K/mm3 (0.9-3.2); Lymphocytes Percent Auto 17.7 % (18.3-44.2); Mean Corpuscular HGB Conc 26.7 g/dl (32-36); Mean Corpuscular Hemoglobin 22.6 pg (26-34); Mean Corpuscular Volume 84.6 fl (80-100); Mean Platelet Volume 9.6 fl (7.4-10.4); Monocytes Absolute Auto 0.9 K/mm3 (0.1-0.6); Monocytes Percent Auto 13.2 % (2.6-8.5); Neutrophils Absolute Auto 4.5 K/mm3 (1.3-6.7); Neutrophils Percent Auto 63.6 % (45.5-73.1); Nucleated Red Blood Cells Perc 0.3 % (0.0-0.2); Platelet Count Result 145 k/mm3 (150-375); Red Blood Count 3.63 M/mm3 (4.6-6.20); Red Cell Distribution Width 22.2 % (11.5-14.5); White Blood Count 7.1 K/mm3 (4.5-10.0)
[2021-03-23 06:50] LABS: INR 3.6
[2021-03-23 06:57] LABS: Blood Urea Nitrogen 29 mg/dL (9-20); Calcium 8.6 mg/dL (8.4-10.2); Carbon Dioxide > 40 mmol/L (22-30); Chloride 96 mmol/L (98-107); Cholesterol 74 mg/dL (0-200); Estimated CRCL calculation 87 ml/min; Estimated Glomerular Filt Rate 60; Glucose 85 mg/dL (75-110); HDL Direct 16 mg/dL; Magnesium 2.1 mg/dL (1.6-2.3); Potassium 4.3 mmol/L (3.4-5.0); Sodium 142 mmol/L (137-145); Triglycerides 70 mg/dL (<150)
[2021-03-23 07:00] LABS: LDL Cholesterol Direct 37 mg/dL
[2021-03-23 07:10] LABS: Hypochromasia 2+ (NORMAL); Polychromasia 1+ (NORMAL); Stomatocytes 1+ (NORMAL)
[2021-03-23 08:05] LABS: Glucose Point of Care 91 mg/dl (65-105)
[2021-03-23] MEDS: POTASSIUM CHLORIDE 20 MEQ TABLET.ER 40 MEQ PO ×2 (09:26→17:45)
[2021-03-23] MEDS: FUROSEMIDE INJ 40 MG/4 ML VIAL IV PUSH (09:26)
[2021-03-23] MEDS: METOPROLOL TARTRATE 12.5 MG TABLET PO ×2 (09:27→21:06)
[2021-03-23] MEDS: LACTULOSE 20 GM/30 ML UDC PO ×2 (09:27→12:15)
[2021-03-23 12:12] LABS: Glucose Point of Care 108 mg/dl (65-105)
[2021-03-23] MEDS: ACETAMINOPHEN 325 MG TABLET 650 MG PO (14:01)
--- NOTE | 2021-03-23 14:54 | P.PNIM_ITS ---
Progress Note: A&P Assessment and Plan (1) Metabolic encephalopathy: Code(s): G93.41 - Metabolic encephalopathy Status: Acute (2) Fluid overload: Code(s): E87.70 - Fluid overload, unspecified Status: Acute (3) Anemia: Code(s): D64.9 - Anemia, unspecified Status: Acute Assessment and Plan: Patient has chronic anemia. Will continue to trend while hospitalized. (4) Renal failure: Code(s): N19 - Unspecified kidney failure Status: Acute Assessment and Plan: Patient most likely has chronic renal failure but records have been requested from [place] for review. Monitor while diuresing. (5) Elevated troponin: Code(s): R77.8 - Other specified abnormalities of plasma proteins Status: Acute Assessment and Plan: Likely related to CHF exacerbation and acute on chronic respiratory failure. seen by cardiology and no new recs given (6) CHF exacerbation: Code(s): I50.9 - Heart failure, unspecified Status: Acute Assessment and Plan: Cautious diuresis with close monitoring of renal function, blood pressures, and volume status. Echo results requested from [place] for review. cont current care cardio following no cardiac intervention at this time Recommend further workup outpatient after patient improves (7) Acute on chronic respiratory failure with hypoxia and hypercapnia: Code(s): J96.21 - Acute and chronic respiratory failure with hypoxia; J96.22 - Acute and chronic respiratory failure with hypercapnia Status: Acute Assessment and Plan: pt placed on Trilogy AVAP AE consult pulmonary Dr Arauz POC reviewed w him and recommendations greatly appreciated (8) Gastroesophageal reflux disease: Code(s): K21.9 - Gastro-esophageal reflux disease without esophagitis Status: Acute (9) Pulmonary hypertension: Code(s): I27.20 - Pulmonary hypertension, unspecified Status: Acute (10) Chronic obstructive pulmonary disease: Code(s): J44.9 - Chronic obstructive pulmonary disease, unspecified Status: Acute Assessment and Plan: No acute exacerbation. stable Continue p.r.n. nebs. NOT ACTIVELY WHEEZING (11) Chronic anticoagulation: Code(s): Z79.01 - long-term (current) use of anticoagulants Status: Acute Assessment and Plan: Continue warfarin and monitor INR. (12) Atrial fibrillation: Code(s): I48.91 - Unspecified atrial fibrillation Status: Acute Assessment and Plan: He is rate controlled. ON WARFARIN INR elevated and warfarin held yesterday INR remains 3.5 today continue to hold (13) Tobacco dependence: Code(s): F17.200 - Nicotine dependence, unspecified, uncomplicated Status: Acute (14) Obstructive sleep apnea: Code(s): G47.33 - Obstructive sleep apnea (adult) (pediatric) Status: Acute Assessment and Plan: BiPAP to be used while hospitalized discharge settings per pulm (15) Congestive heart failure: Code(s): I50.9 - Heart failure, unspecified Status: Acute (16) Morbid obesity: Code(s): E66.01 - Morbid (severe) obesity due to excess calories Status: Acute Assessment and Plan: Patient has been unable to walk from his recent hospitalization. Initiate fall precautions. PT/OT consulted. mobilize pt 1800 CALORIE RESTRICTED DIET (17) Acute hypercapnic respiratory failure: Code(s): J96.02 - Acute respi
[2021-03-23 17:21] LABS: Glucose Point of Care 126 mg/dl (65-105)
[2021-03-23] MEDS: LACTULOSE 20 GM/30 ML UDC 30 GM PO (17:45)
[2021-03-23] MEDS: BUMETANIDE INJ 1 MG/4 ML VIAL IV PUSH (18:34)
[2021-03-23] MEDS: rOPINIRole HCL 0.25 MG TABLET PO (21:06)
[2021-03-23] MEDS: MONTELUKAST SODIUM 10 MG TABLET PO (21:07)
[2021-03-24] VITALS (16 sets, daily range): BP systolic 94–118; BP diastolic 51–73; PULSE 63–90; RESP 22–24; TEMP 36.3–36.9; O2SAT 91–98
[2021-03-24] MEDS: traMADol HCL (*CRX) 50 MG TABLET PO (04:00)
[2021-03-24 06:20] LABS: Ammonia 37 umol/L (9-30); Basophils Absolute Auto 0.1 K/mm3 (0.0-0.1); Basophils Percent Auto 0.9 % (0.2-1.2); Eosinophils Absolute Auto 0.4 K/mm3 (0-0.3); Eosinophils Percent Auto 4.1 % (0-4.4); Hemoglobin 8.3 g/dL (14.0-18.0); Immature Granulocyte Absolute 0.06 K/mm3 (0.00-0.031); Immature Granulocyte Percent A 0.7 % (0-0.5); Lymphocytes Absolute Auto 1.44 K/mm3 (0.9-3.2); Lymphocytes Percent Auto 15.8 % (18.3-44.2); Mean Corpuscular HGB Conc 26.8 g/dl (32-36); Mean Corpuscular Hemoglobin 22.9 pg (26-34); Mean Corpuscular Volume 85.6 fl (80-100); Mean Platelet Volume 10.1 fl (7.4-10.4); Monocytes Absolute Auto 1.2 K/mm3 (0.1-0.6); Monocytes Percent Auto 12.8 % (2.6-8.5); Neutrophils Percent Auto 65.7 % (45.5-73.1); Nucleated Red Blood Cells Perc 0.4 % (0.0-0.2); Platelet Count Result 148 k/mm3 (150-375); Red Blood Count 3.62 M/mm3 (4.6-6.20); Red Cell Distribution Width 22.3 % (11.5-14.5); White Blood Count 9.1 K/mm3 (4.5-10.0)
[2021-03-24 06:40] LABS: Alanine Aminotransferase 20 U/L (4-50); Albumin Level 3.6 g/dL (3.5-5.1); Alkaline Phosphatase 83 U/L (38-126); Anion Gap 7 mmol/L (8-16); Aspartate Amino Transferase 32 U/L (17-59); Bilirubin,Total 1.8 mg/dL (0.2-1.3); Blood Urea Nitrogen 30 mg/dL (9-20); CRP 2.2 mg/dL (<1.0); Calcium 8.8 mg/dL (8.4-10.2); Carbon Dioxide 38 mmol/L (22-30); Chloride 95 mmol/L (98-107); Creatine Kinase < 20 U/L (55-170); Estimated CRCL calculation 87 ml/min; Estimated Glomerular Filt Rate 60; Glucose 113 mg/dL (75-110); Magnesium 2.1 mg/dL (1.6-2.3); Potassium 4.7 mmol/L (3.4-5.0); Sodium 140 mmol/L (137-145)
[2021-03-24 06:50] LABS: INR 2.7; Prothrombin Time 29.3 Seconds (11.1-14.7)
[2021-03-24 06:51] LABS: Hypochromasia 3+ (NORMAL); Polychromasia 1+ (NORMAL); Stomatocytes 2+ (NORMAL)
[2021-03-24] MEDS: LACTULOSE 20 GM/30 ML UDC 30 GM PO (09:19)
[2021-03-24] MEDS: METOPROLOL TARTRATE 12.5 MG TABLET PO (09:19)
[2021-03-24] MEDS: POTASSIUM CHLORIDE 20 MEQ TABLET.ER 40 MEQ PO (09:19)
[2021-03-24] MEDS: acetaZOLAMIDE TAB 250 MG TABLET 500 MG PO (09:19)
[2021-03-24] MEDS: BUMETANIDE INJ 1 MG/4 ML VIAL IV PUSH (09:19)
[2021-03-24 12:13] LABS: Alveolar/Arterial O2 Gradient 9.1 mmHg; Base Excess ABG 11.8 mEq/l (+/-2.0); Carboxyhemoglobin 1.6 % THb (0-2.0); Fractional Inspired Oxygen 28 %; HCO3 ABG 41.5 mEq/l (22.0-26.0); Methemoglobin ABG 0.2 %THb (0-1.5); Oxygen Content ABG 12.5 %vol (16.0-22.0); Oxygen Saturation ABG 92.7 % (95.0-100.0); Oxyhemoglobin 92.1 % THb (90.0-100.0); PO2 ABG 78.3 mmHg (80.0-100.0); Reduced Hemoglobin 6.1 %THb (0-5.0); Total Hemoglobin 9.6 g/dL (12.0-18.0)
[2021-03-24 12:16] LABS: Device NASAL CANNULA; Modified Allen's Test Pass; PCO2 ABG 95.1 mmHg (35.0-45.0); Site Drawn RIGHT RADIAL; pH ABG 7.258 (7.350-7.450)
[2021-03-24 13:17] LABS: Basophils Absolute Auto 0.1 K/mm3 (0.0-0.1); Basophils Percent Auto 0.6 % (0.2-1.2); Eosinophils Absolute Auto 0.3 K/mm3 (0-0.3); Eosinophils Percent Auto 3.5 % (0-4.4); Hematocrit 30.8 % (42.0-52.0); Hemoglobin 8.2 g/dL (14.0-18.0); Immature Granulocyte Absolute 0.05 K/mm3 (0.00-0.031); Immature Granulocyte Percent A 0.6 % (0-0.5); Lymphocytes Absolute Auto 0.93 K/mm3 (0.9-3.2); Lymphocytes Percent Auto 11.7 % (18.3-44.2); Mean Corpuscular HGB Conc 26.6 g/dl (32-36); Mean Corpuscular Volume 86.3 fl (80-100); Mean Platelet Volume 9.9 fl (7.4-10.4); Monocytes Absolute Auto 1.1 K/mm3 (0.1-0.6); Monocytes Percent Auto 13.2 % (2.6-8.5); Neutrophils Absolute Auto 5.6 K/mm3 (1.3-6.7); Neutrophils Percent Auto 70.4 % (45.5-73.1); Nucleated Red Blood Cells Perc 0.5 % (0.0-0.2); Platelet Count Result 150 k/mm3 (150-375); Red Blood Count 3.57 M/mm3 (4.6-6.20); Red Cell Distribution Width 22.5 % (11.5-14.5); White Blood Count 7.9 K/mm3 (4.5-10.0)
[2021-03-24 13:26] LABS: Alanine Aminotransferase 19 U/L (4-50); Albumin Level 3.5 g/dL (3.5-5.1); Alkaline Phosphatase 77 U/L (38-126); Anion Gap 5 mmol/L (8-16); Aspartate Amino Transferase 29 U/L (17-59); Bilirubin,Total 1.8 mg/dL (0.2-1.3); Blood Urea Nitrogen 30 mg/dL (9-20); Calcium 8.6 mg/dL (8.4-10.2); Carbon Dioxide 39 mmol/L (22-30); Chloride 96 mmol/L (98-107); Estimated CRCL calculation 75 ml/min; Estimated Glomerular Filt Rate 50; Glucose 114 mg/dL (75-110); Potassium 4.7 mmol/L (3.4-5.0); Sodium 140 mmol/L (137-145)
[2021-03-24 13:27] LABS: Lactic Acid Reflex 0.8 mmol/L (0.7-2.1)
[2021-03-24 13:39] LABS: Hypochromasia 3+ (NORMAL); Platelet Estimate Adequate (Adequate); Polychromasia 1+ (NORMAL)
[2021-03-24 13:40] LABS: Anisocytosis 2+ (NORMAL); Stomatocytes 2+ (NORMAL)
[2021-03-24 14:29] LABS: Add Urine Microscopic? YES; Appearance Urine Clear (Clear); Bilirubin Urine Negative (Negative); Blood Urine Negative (Negative); Color Urine Yellow (Yellow); Glucose Urine UA Negative (Negative); Ketones Urine Negative (Negative); Leukocyte Esterase Ur Trace LEU/UL (Negative); Mucus Urine Rare /lpf; Nitrate Urine Negative (Negative); Protein Urine Negative (Negative); Specific Grav Ur 1.012 (1.001-1.035); Squamous Epithelial Cell Urine Rare /hpf (Few); WBC Urine 0-3 /hpf
--- NOTE | 2021-03-24 14:55 | PC.NURSE ---
This patient, Stu Andujar, was transferred to [id number] on 03/24/21 at 1455. Personal belongings sent with patient. Report given to [ ]. Appropriate documentation sent with patient. Report given to Brandon REINA.
--- NOTE | 2021-03-24 17:54 | PC.NURSE ---
This patient, Stu Andujar, was received from [room 302 ] on 03/24/21 at 1500. Patient/family oriented to unit policies and routines
[2021-03-24] MEDS: FUROSEMIDE INJ 40 MG/4 ML VIAL IV PUSH (18:08)
[2021-03-25] VITALS (18 sets, daily range): BP systolic 90–120; BP diastolic 40–70; PULSE 64–110; RESP 22–26; TEMP 35.8–36.9; O2SAT 91–96
[2021-03-25 05:26] LABS: Basophils Absolute Auto 0.1 K/mm3 (0.0-0.1); Basophils Percent Auto 0.7 % (0.2-1.2); Eosinophils Absolute Auto 0.3 K/mm3 (0-0.3); Eosinophils Percent Auto 3.9 % (0-4.4); Hematocrit 29.2 % (42.0-52.0); Immature Granulocyte Absolute 0.04 K/mm3 (0.00-0.031); Immature Granulocyte Percent A 0.5 % (0-0.5); Lymphocytes Percent Auto 13.3 % (18.3-44.2); Mean Corpuscular HGB Conc 27.4 g/dl (32-36); Mean Corpuscular Hemoglobin 22.8 pg (26-34); Mean Corpuscular Volume 83.2 fl (80-100); Mean Platelet Volume 9.9 fl (7.4-10.4); Neutrophils Absolute Auto 5.7 K/mm3 (1.3-6.7); Neutrophils Percent Auto 69.6 % (45.5-73.1); Nucleated Red Blood Cells Perc 0.4 % (0.0-0.2); Platelet Count Result 162 k/mm3 (150-375); Red Blood Count 3.51 M/mm3 (4.6-6.20); Red Cell Distribution Width 23.1 % (11.5-14.5); White Blood Count 8.2 K/mm3 (4.5-10.0)
[2021-03-25 05:33] LABS: Ammonia 19 umol/L (9-30)
[2021-03-25 05:34] LABS: INR 2.9
[2021-03-25 05:40] LABS: Alanine Aminotransferase 16 U/L (4-50); Albumin Level 3.1 g/dL (3.5-5.1); Alkaline Phosphatase 72 U/L (38-126); Anion Gap 6 mmol/L (8-16); Aspartate Amino Transferase 26 U/L (17-59); Bilirubin,Total 1.9 mg/dL (0.2-1.3); Blood Urea Nitrogen 31 mg/dL (9-20); CRP 2.6 mg/dL (<1.0); Calcium 8.8 mg/dL (8.4-10.2); Carbon Dioxide 37 mmol/L (22-30); Chloride 98 mmol/L (98-107); Estimated CRCL calculation 87 ml/min; Estimated Glomerular Filt Rate 60; Glucose 81 mg/dL (75-110); Potassium 3.8 mmol/L (3.4-5.0); Sodium 141 mmol/L (137-145)
[2021-03-25 06:15] LABS: Anisocytosis 2+ (NORMAL); Hypochromasia 2+ (NORMAL); Platelet Estimate Adequate (Adequate); Target Cells 2+ (NORMAL)
[2021-03-25 06:16] LABS: Stomatocytes 1+ (NORMAL)
--- NOTE | 2021-03-25 08:32 | P.PNPL_ITS ---
Progress Note: A&P Assessment and Plan (1) Acute on chronic respiratory failure with hypoxia and hypercapnia: Code(s): J96.21 - Acute and chronic respiratory failure with hypoxia; J96.22 - Acute and chronic respiratory failure with hypercapnia Status: Acute Assessment and Plan: 03/20 Patient with a history of morbid obesity and now with acute on chronic hypercarbic and hypoxemic respiratory failure. The patient has alveolar hypoventilation syndrome in addition to his reported obstructive sleep apnea and fluid overload with a blood gas of 7.25/102/76 on 5 L nasal cannula on presentation. He also has biventricular failure with moderately enlarged RV with PASP 50 and moderate to severe MR. The patient has chronic hypercarbic respiratory failure from alveolar hypoventilation and morbid obesity and would benefit from noninvasive ventilation to prevent further deterioration and hospitalizations. The patient said the BiPAP 20/10 woith 30% with ABG of 7.38/67/69 but was uncomfortable and I have placed him on AVAPS mode rate of 18/tidal volume 550, EPAP 10, inspiratory pressure min 11, inspiratory pressure max 25, inspiratory time 1.0 seconds, rise 3, 30% FIO2. I will check a blood gas in the morning to assess his ventilation and oxygenation. I do not think the patient has an active pneumonia and do not think he needs antibiotics from a respiratory viewpoint. I do not think the patient has a COPD exacerbation and do not feel he needs bronchodilators or inhaled or systemic steroids at this point. 03/21 Patient wore AVAPS mode respiratory rate 18, tidal volume 550, EPAP 10, IPAP min 11, IPAP max 25, 30%, inspiratory time 1.0 seconds, rise 3 overnight with ABG at the end of the night of 7.35/68/82. He has LVEF 35-40%, moderately enlarged RV with reduced function, severely enlarged RA and LA, moderate to severe MR, mild TR with PASP 50. I obtained a download from his [employer] from 12/15-03/14. Patient was wearing CPAP 17 up until 03/03 every night with an average usage days used of 10 10 hours and 18 minutes. His AHI was 2.3, his apnea index was 1.4, his hypopnea index was 0.9. His central apnea index was 0.1, obstructive apnea index 0.1 he had no Quirino-Moore his median leak was 22.3, 95th percentile leak was 55.8 and his maximum leak was 67.1. Overall sara has been compliant but CPAP is not sufficient to treat his obesity hypoventilation syndrome and now requires noninvasive ventilation. Will increase AVAPS RR to 22 and obtain apnea link tonight on 30%. 6/ Feeling better today. Wore AVAPS mode respiratory rate 18, tidal volume 550, EPAP 10, IPAP min 11, IPAP max 25, 30%, inspiratory time 1.0 seconds, rise 3 overnight and did well. Overnight oximetry demonstrated a average saturation of 95%, lowest saturation was 91%. Time with saturation less than or equal to 88% was 0 minutes. Reordered RR increase to 22. While at [place] continue AVAPS mode respiratory rate 22, tidal volume 550, EPAP 10, IPAP min 11, IPAP max 25, FIO2 30%, inspiratory time 1.0 seconds, rise 3 overnight at night and when sleeps during day. [facility] may or may not be able to support AVAPS-AE noninvasive ventilation which would be best for patient. If they do not administter AVAPS AE NIV then he should be discharged on BiPAP 20/10 with 3 L bleed in. Ready for discharge from pulmonary perspective on: Trilogy with AVAPS-AE respiratory rate 22, tidal volume 550, EPAP min 8, EPAP max 18, PSV min 5, PSV max 25, inspiratory time 1.0 seconds, 3 liters bleed in. If trilogy not supported then BiPAP with back up rate 22, IPAP 20, EPAP 10, 3 liters bleed in. Discussed with Dr. Reddy, will sign off, call with questions. 03/25 r
[2021-03-25] MEDS: POTASSIUM CHLORIDE 20 MEQ TABLET.ER 40 MEQ PO ×2 (09:31→18:43)
[2021-03-25] MEDS: LACTULOSE 20 GM/30 ML UDC 30 GM PO ×3 (09:36→18:43)
[2021-03-25 11:13] LABS: Alveolar/Arterial O2 Gradient 38.5 mmHg; Base Excess ABG 12.8 mEq/l (+/-2.0); Fractional Inspired Oxygen 28 %; HCO3 ABG 40.5 mEq/l (22.0-26.0); Oxygen Content ABG 12.3 %vol (16.0-22.0); Oxygen Saturation ABG 93.5 % (95.0-100.0); Oxyhemoglobin 91.5 % THb (90.0-100.0); PO2 ABG 73.6 mmHg (80.0-100.0); PO2 FiO2 Ratio Arterial Blood 2.63 %; Total Hemoglobin 9.5 g/dL (12.0-18.0); pH ABG 7.355 (7.350-7.450)
[2021-03-25 11:15] LABS: Device NASAL CANNULA; PCO2 ABG 74.2 mmHg (35.0-45.0); Site Drawn LEFT BRACHIAL
--- NOTE | 2021-03-25 11:19 | PCDIET ---
Nutrition Follow-Up Complete: Nutrition Diagnosis: Inadequate protein intake related to altered taste, food preferences as evidenced by patient refusal to eat many protein rich foods provided for some period of time, per statement. Nutrition Goal: Patient will consume 50% of meals/supplements. Goal not met. Patient consumed 100% of two meals on 03/23/21 but refused all other meals over the weekend. Hospice has been consulted. Will follow closely for plan of care. Recommend continuing Ensure Compact BID in mean time. Diet is heart healthy with 1200mL fluid restriction. Last recorded weight is 181.9 kg which is stable with last review. Bowel Motility: BM x 1 on 03/24/21. Labs Reviewed: Hgb (8.0), Hct (29.2), BUN (31), Alb (3.1) Meds Noted: Lasix, Atrovent, Lactulose, KCl Additional Notes: Friction area to nose. Will continue to monitor with same goal. Nutrition Monitoring and Evaluation: Follow up in 3 days.
[2021-03-25] MEDS: METOPROLOL TARTRATE 12.5 MG TABLET PO ×2 (12:15→20:17)
[2021-03-25] MEDS: FUROSEMIDE INJ 40 MG/4 ML VIAL IV PUSH (12:16)
[2021-03-25] MEDS: ONDANSETRON INJ 4 MG/2 ML VIAL IV PUSH (12:48)
[2021-03-25] MEDS: traMADol HCL (*CRX) 50 MG TABLET PO (12:51)
--- NOTE | 2021-03-25 15:56 | PCPTNOTE ---
PT on hold due to decline in medical status, transfer to IMU and Hospice consult. Will follow.
--- NOTE | 2021-03-25 16:26 | P.PNIM_ITS ---
Progress Note: A&P Assessment and Plan (1) Metabolic encephalopathy: Code(s): G93.41 - Metabolic encephalopathy Status: Acute (2) Fluid overload: Code(s): E87.70 - Fluid overload, unspecified Status: Acute (3) Anemia: Code(s): D64.9 - Anemia, unspecified Status: Acute Assessment and Plan: Patient has chronic anemia. Will continue to trend while hospitalized. (4) Renal failure: Code(s): N19 - Unspecified kidney failure Status: Acute Assessment and Plan: Patient most likely has chronic renal failure but records have been requested from [facility] for review. Monitor while diuresing. (5) Elevated troponin: Code(s): R77.8 - Other specified abnormalities of plasma proteins Status: Acute Assessment and Plan: Likely related to CHF exacerbation and acute on chronic respiratory failure. seen by cardiology and no new recs given (6) CHF exacerbation: Code(s): I50.9 - Heart failure, unspecified Status: Acute Assessment and Plan: Cautious diuresis with close monitoring of renal function, blood pressures, and volume status. Echo results requested from [facility] for review. cont current care cardio following no cardiac intervention at this time Recommend further workup outpatient after patient improves (7) Acute on chronic respiratory failure with hypoxia and hypercapnia: Code(s): J96.21 - Acute and chronic respiratory failure with hypoxia; J96.22 - Acute and chronic respiratory failure with hypercapnia Status: Acute Assessment and Plan: pt placed on Trilogy AVAP AE consult pulmonary Dr Arauz POC reviewed w him and recommendations greatly appreciated repeat ABG today with imporvement. (8) Gastroesophageal reflux disease: Code(s): K21.9 - Gastro-esophageal reflux disease without esophagitis Status: Acute (9) Pulmonary hypertension: Code(s): I27.20 - Pulmonary hypertension, unspecified Status: Acute (10) Chronic obstructive pulmonary disease: Code(s): J44.9 - Chronic obstructive pulmonary disease, unspecified Status: Acute Assessment and Plan: No acute exacerbation. stable Continue p.r.n. nebs. NOT ACTIVELY WHEEZING (11) Chronic anticoagulation: Code(s): Z79.01 - correction (current) use of anticoagulants Status: Acute Assessment and Plan: Continue warfarin and monitor INR. (12) Atrial fibrillation: Code(s): I48.91 - Unspecified atrial fibrillation Status: Acute Assessment and Plan: He is rate controlled. ON WARFARIN INR elevated and warfarin held yesterday INR remains 3.5 today continue to hold (13) Tobacco dependence: Code(s): F17.200 - Nicotine dependence, unspecified, uncomplicated Status: Acute (14) Obstructive sleep apnea: Code(s): G47.33 - Obstructive sleep apnea (adult) (pediatric) Status: Acute Assessment and Plan: BiPAP to be used while hospitalized discharge settings per pulm (15) Congestive heart failure: Code(s): I50.9 - Heart failure, unspecified Status: Acute (16) Morbid obesity: Code(s): E66.01 - Morbid (severe) obesity due to excess calories Status: Acute Assessment and Plan: Patient has been unable to walk from his recent hospitalization. Initiate fall precautions. PT/OT consulted. mobilize pt 1800 CALORIE RESTRICTED DIET (17) Acute hypercapnic respiratory failure:
[2021-03-25] MEDS: WARFARIN (*PBKC) 7.5 MG TABLET PO (18:43)
[2021-03-25] MEDS: rOPINIRole HCL 0.25 MG TABLET PO (20:17)
[2021-03-25] MEDS: MONTELUKAST SODIUM 10 MG TABLET PO (20:17)
[2021-03-26] VITALS (18 sets, daily range): BP systolic 99–121; BP diastolic 47–73; PULSE 69–104; RESP 18–28; TEMP 36.1–37.1; O2SAT 92–99
[2021-03-26 04:52] LABS: Basophils Absolute Auto 0.1 K/mm3 (0.0-0.1); Basophils Percent Auto 0.6 % (0.2-1.2); Eosinophils Absolute Auto 0.4 K/mm3 (0-0.3); Eosinophils Percent Auto 3.4 % (0-4.4); Hematocrit 30.6 % (42.0-52.0); Hemoglobin 8.2 g/dL (14.0-18.0); Immature Granulocyte Absolute 0.07 K/mm3 (0.00-0.031); Immature Granulocyte Percent A 0.6 % (0-0.5); Lymphocytes Absolute Auto 1.32 K/mm3 (0.9-3.2); Lymphocytes Percent Auto 12.2 % (18.3-44.2); Mean Corpuscular HGB Conc 26.8 g/dl (32-36); Mean Corpuscular Hemoglobin 22.8 pg (26-34); Mean Corpuscular Volume 85.2 fl (80-100); Mean Platelet Volume 9.6 fl (7.4-10.4); Monocytes Absolute Auto 1.3 K/mm3 (0.1-0.6); Monocytes Percent Auto 12.4 % (2.6-8.5); Neutrophils Absolute Auto 7.7 K/mm3 (1.3-6.7); Neutrophils Percent Auto 70.8 % (45.5-73.1); Nucleated Red Blood Cells Perc 0.2 % (0.0-0.2); Platelet Count Result 177 k/mm3 (150-375); Red Blood Count 3.59 M/mm3 (4.6-6.20); Red Cell Distribution Width 23.3 % (11.5-14.5); White Blood Count 10.9 K/mm3 (4.5-10.0)
[2021-03-26 04:53] LABS: Alanine Aminotransferase 17 U/L (4-50); Albumin Level 3.2 g/dL (3.5-5.1); Alkaline Phosphatase 73 U/L (38-126); Anion Gap 5 mmol/L (8-16); Aspartate Amino Transferase 32 U/L (17-59); Bilirubin,Total 2.1 mg/dL (0.2-1.3); Blood Urea Nitrogen 35 mg/dL (9-20); Carbon Dioxide 39 mmol/L (22-30); Chloride 99 mmol/L (98-107); Estimated CRCL calculation 75 ml/min; Estimated Glomerular Filt Rate 50; Glucose 91 mg/dL (75-110); Magnesium 2.1 mg/dL (1.6-2.3); Potassium 4.4 mmol/L (3.4-5.0); Sodium 143 mmol/L (137-145)
[2021-03-26 05:06] LABS: Ammonia 15 umol/L (9-30)
[2021-03-26 05:15] LABS: INR 3.5; Prothrombin Time 35.4 Seconds (11.1-14.7)
[2021-03-26 05:25] LABS: Anisocytosis 1+ (NORMAL); Hypochromasia 2+ (NORMAL); Platelet Estimate Adequate (Adequate)
[2021-03-26] MEDS: POTASSIUM CHLORIDE 20 MEQ TABLET.ER 40 MEQ PO ×2 (09:39→18:16)
[2021-03-26] MEDS: FUROSEMIDE INJ 40 MG/4 ML VIAL IV PUSH ×2 (09:39→18:17)
[2021-03-26] MEDS: LACTULOSE 20 GM/30 ML UDC 30 GM PO (09:39)
[2021-03-26] MEDS: METOPROLOL TARTRATE 12.5 MG TABLET PO ×2 (09:40→20:48)
--- NOTE | 2021-03-26 09:54 | PM.PNPUL ---
Progress Note: A&P Assessment and Plan (1) Acute on chronic respiratory failure with hypoxia and hypercapnia: Code(s): J96.21 - Acute and chronic respiratory failure with hypoxia; J96.22 - Acute and chronic respiratory failure with hypercapnia Status: Acute Assessment and Plan: 03/20 Patient with a history of morbid obesity and now with acute on chronic hypercarbic and hypoxemic respiratory failure. The patient has alveolar hypoventilation syndrome in addition to his reported obstructive sleep apnea and fluid overload with a blood gas of 7.25/102/76 on 5 L nasal cannula on presentation. He also has biventricular failure with moderately enlarged RV with PASP 50 and moderate to severe MR. The patient has chronic hypercarbic respiratory failure from alveolar hypoventilation and morbid obesity and would benefit from noninvasive ventilation to prevent further deterioration and hospitalizations. The patient said the BiPAP 20/10 woith 30% with ABG of 7.38/67/69 but was uncomfortable and I have placed him on AVAPS mode rate of 18/tidal volume 550, EPAP 10, inspiratory pressure min 11, inspiratory pressure max 25, inspiratory time 1.0 seconds, rise 3, 30% FIO2. I will check a blood gas in the morning to assess his ventilation and oxygenation. I do not think the patient has an active pneumonia and do not think he needs antibiotics from a respiratory viewpoint. I do not think the patient has a COPD exacerbation and do not feel he needs bronchodilators or inhaled or systemic steroids at this point. 03/21 Patient wore AVAPS mode respiratory rate 18, tidal volume 550, EPAP 10, IPAP min 11, IPAP max 25, 30%, inspiratory time 1.0 seconds, rise 3 overnight with ABG at the end of the night of 7.35/68/82. He has LVEF 35-40%, moderately enlarged RV with reduced function, severely enlarged RA and LA, moderate to severe MR, mild TR with PASP 50. I obtained a download from his [employer] from 12/15-03/14. Patient was wearing CPAP 17 up until 03/03 every night with an average usage days used of 10 10 hours and 18 minutes. His AHI was 2.3, his apnea index was 1.4, his hypopnea index was 0.9. His central apnea index was 0.1, obstructive apnea index 0.1 he had no Quirino-Moore his median leak was 22.3, 95th percentile leak was 55.8 and his maximum leak was 67.1. Overall sara has been compliant but CPAP is not sufficient to treat his obesity hypoventilation syndrome and now requires noninvasive ventilation. Will increase AVAPS RR to 22 and obtain apnea link tonight on 30%. 03/22 Feeling better today. Wore AVAPS mode respiratory rate 18, tidal volume 550, EPAP 10, IPAP min 11, IPAP max 25, 30%, inspiratory time 1.0 seconds, rise 3 overnight and did well. Overnight oximetry demonstrated a average saturation of 95%, lowest saturation was 91%. Time with saturation less than or equal to 88% was 0 minutes. Reordered RR increase to 22. While at [place] continue AVAPS mode respiratory rate 22, tidal volume 550, EPAP 10, IPAP min 11, IPAP max 25, FIO2 30%, inspiratory time 1.0 seconds, rise 3 overnight at night and when sleeps during day. [facility] may or may not be able to support AVAPS-AE noninvasive ventilation which would be best for patient. If they do not administter AVAPS AE NIV then he should be discharged on BiPAP 20/10 with 3 L bleed in. Ready for discharge from pulmonary perspective on: Trilogy with AVAPS-AE respiratory rate 22, tidal volume 550, EPAP min 8, EPAP max 18, PSV min 5, PSV max 25, inspiratory time 1.0 seconds, 3 liters bleed in. If trilogy not supported then BiPAP with back up rate 22, IPAP 20, EPAP 10, 3 liters bleed in. Discussed with Dr. Reddy, will sign off, call with questions. 03/25 reconsulted for acute hypercarbic respiratory failure on 03/24 (ABG 7.256/95/78 after not wearing BiPAP the previous night). Placed on AVAPS but not providing adequate TV so placed on BiPAP RR22, 24/12 to give adequate TV, 30%. Currently patient a
--- NOTE | 2021-03-26 14:11 | PCPTNOTE ---
PT on hold awaiting family decision on Hospice. Will follow.
[2021-03-26] MEDS: rOPINIRole HCL 0.25 MG TABLET PO (20:48)
[2021-03-26] MEDS: MONTELUKAST SODIUM 10 MG TABLET PO (20:48)
[2021-03-27] VITALS (23 sets, daily range): BP systolic 94–163; BP diastolic 54–95; PULSE 68–90; RESP 21–26; TEMP 35.6–36.6; O2SAT 91–100
[2021-03-27 05:16] LABS: INR 3.2
[2021-03-27] MEDS: METOPROLOL TARTRATE 12.5 MG TABLET PO ×2 (08:44→21:06)
[2021-03-27] MEDS: POTASSIUM CHLORIDE 20 MEQ TABLET.ER 40 MEQ PO (08:45)
--- NOTE | 2021-03-27 11:03 | PCDIET ---
Nutrition Follow-Up Complete: Nutrition Diagnosis: Inadequate protein intake related to altered taste, food preferences as evidenced by patient refusal to eat many protein rich foods provided for some period of time, per statement. Nutrition Goal: Patient will consume 50% of meals/supplements Goal not met. Average intake since 03/25/21 has been 27% of recorded meals. Patient remains on heart healthy diet with Ensure Compact BID and 1200mL fluid restriction. Family deciding on LTAC vs. hospice care. If aggressive care is continued and intakes remain poor, may need to consider supplemental nutrition support. Last recorded weight is 188 kg which is increased from last review. -I/O. Recommend reweighing patient to ensure accuracy. Bowel Motility: BM x 2 on 03/26/21. Labs Reviewed: WBC (10.9), Hct (8.2), Hct (30.6), BUN (35), Cr (1.4), Alb (3.2) Meds Noted: Lasix, Atrovent, Lactulose, Lopressor, Folic/D3, KCl, Coumadin Additional Notes: Integumentary notes reviewed. Will continue to monitor with same goal. Nutrition Monitoring and Evaluation: Follow up in 3 days.
[2021-03-27] MEDS: LACTULOSE 20 GM/30 ML UDC PO (13:43)
--- NOTE | 2021-03-27 16:25 | PM.IMPN ---
Progress Note: A&P Additional Plan 03/20/2021 Patient admitted with acute exacerbation of CHF and acute hypoxemic hypercapnic respiratory failure with AMS. He remains on BiPAP. His case has been reviewed with respiratory therapy and RN. He is noted to be BiPAP dependent at this time although no repeat ABGs have been performed. Order placed for Dr. Arauz's expert consultation. Continue current care Patient will require ongoing inpatient hospitalization. 03/21/21 pt improving cardiology on board will follow recs for BiVent systolic failure intermittent bipap change diuretics to lasix 40mg IV BID c/s healthcare administration intern for assistance w LTAC (BiPAP dependent, needs agressive rehab) 03/22/21 remains confused cont diuresis cont home meds mobilize pt POC reviewed w of pt and pulmonology anticipate dc to LTAC when medically stable 03/23/2021 Patient remains confused Fluid balance is now positive after change of diuretics and CO2 is noted to be greater than 40 on labs this morning Ammonia was 81 yesterday, patient is on q.i.d. lactulose not sure if he is receiving and are not-> increased to 30 mg with t.i.d. dosing Rectal tube ordered as patient is super morbidly obese difficult to change in order to prevent skin breakdown with high doses of lactulose BiPAP per Dr. Arauz's recommendations Continue current care pt is DNR/DNI 03/25/2021: patiet ismore attentie and alert compared to yeserday per nursing staff and also family. discussed ith family at bedside today with nathanael. he has underlying chf with renal failu reand also hyperammonemia causing his end stage heart failure needing bipap support. reasonable to continue with hospice care with goal to comfort. i anticipate him to be on bipap support from here on due to her severe hyercapnic respiratory failure related to his chf and pulmonary edema and renal failure. He has multpile other comorbidies and high risk for recurrent admissions for the same. hospice care and treatment is appropriate and also advised to the patient and family at this point. all their questions were answered as far as posible. if hospice not chosen, he will need to go to LTAC for continued care and treatment. 03/26patient is much more coherent off BiPAP able to communicate his present in the room and feeding patient does not appear to be any distress is able to answer appropriately, his ammonia level is 15 and patient having several bowel movement will reduce his lactulose to 20 mg q.day will continue to monitor, will have a PT OT evaluate the patient and further recommendation to follow. 03/27 today patient little more confused his brother is present in the room who was visiting him from [place], her long discussion, patient remains on BiPAP unable to go to home there is no one to take care of him, his is elderly and ill, cannot go to local long term with a BiPAP, there is a possibility patient can go to LTAC pending authorization, will continue to monitor will check his INR, and his ammonia level and plan. Subjective Date/time seen: 03/27/21 16:25 03/26patient is much more coherent off BiPAP able to communicate his present in the room and feeding patient does not appear to be any distress is able to answer appropriately, his ammonia level is 15 and patient having several bowel movement will reduce his lactulose to 20 mg q.day will continue to monitor, will have a PT OT evaluate the patient and further recommendation to follow. 03/27 today patient little more confused his brother is present in the room who was visiting him from [place], her long discussion, patient remains on BiPAP unable to go to home there is no one to take care of him, his is elderly and ill, cannot go to local long term with a BiPAP, there is a possibility patient can go to LTAC pending authorization, will continue to monitor will check his INR, and his ammonia level and plan. Review of Systems Review of Systems:
--- NOTE | 2021-03-27 17:27 | PM.PNPUL ---
Progress Note: A&P Assessment and Plan (1) Acute on chronic respiratory failure with hypoxia and hypercapnia: Code(s): J96.21 - Acute and chronic respiratory failure with hypoxia; J96.22 - Acute and chronic respiratory failure with hypercapnia Status: Acute Assessment and Plan: 03/20 Patient with a history of morbid obesity and now with acute on chronic hypercarbic and hypoxemic respiratory failure. The patient has alveolar hypoventilation syndrome in addition to his reported obstructive sleep apnea and fluid overload with a blood gas of 7.25/102/76 on 5 L nasal cannula on presentation. He also has biventricular failure with moderately enlarged RV with PASP 50 and moderate to severe MR. The patient has chronic hypercarbic respiratory failure from alveolar hypoventilation and morbid obesity and would benefit from noninvasive ventilation to prevent further deterioration and hospitalizations. The patient said the BiPAP 20/10 with 30% with ABG of 7.38/67/69 but was uncomfortable, went to AVAPS mode rate of 18/tidal volume 550, EPAP 10, inspiratory pressure min 11, inspiratory pressure max 25, inspiratory time 1.0 seconds, rise 3, 30% FIO2. Doubt active pneumonia and no need for antibiotics from a respiratory viewpoint. Doubt COPD exacerbation; no need for bronchodilators or inhaled/systemic steroids. 03/21 Patient wore AVAPS mode respiratory rate 18, tidal volume 550, EPAP 10, IPAP min 11, IPAP max 25, 30%, inspiratory time 1.0 seconds, rise 3 overnight with ABG at the end of the night of 7.35/68/82. He has LVEF 35-40%, moderately enlarged RV with reduced function, severely enlarged RA and LA, moderate to severe MR, mild TR with PASP 50. Download from his [employer] from 12/15-03/14. Patient was wearing CPAP 17 up until 03/03 every night with an average usage days used of 10 10 hours and 18 minutes. His AHI was 2.3, his apnea index was 1.4, his hypopnea index was 0.9. His central apnea index was 0.1, obstructive apnea index 0.1 he had no Quirino-Moore his median leak was 22.3, 95th percentile leak was 55.8 and his maximum leak was 67.1. Overall patient has been compliant but CPAP is not sufficient to treat his obesity hypoventilation syndrome and now requires noninvasive ventilation. Will increase AVAPS RR to 22; apnea link on March 21 on 30%. 03/22 Feeling better today. Wore AVAPS mode respiratory rate 18, tidal volume 550, EPAP 10, IPAP min 11, IPAP max 25, 30%, inspiratory time 1.0 seconds, rise 3 overnight and did well. Overnight oximetry demonstrated a average saturation of 95%, lowest saturation was 91%. Time with saturation less than or equal to 88% was 0 minutes. Reordered RR increase to 22. While at [place] continue AVAPS mode respiratory rate 22, tidal volume 550, EPAP 10, IPAP min 11, IPAP max 25, FIO2 30%, inspiratory time 1.0 seconds, rise 3 overnight at night and when sleeps during day. [facility] may or may not be able to support AVAPS-AE noninvasive ventilation which would be best for patient. If they do not administer AVAPS AE NIV then he should be discharged on BiPAP 20/10 with 3 L bleed in. Ready for discharge from pulmonary perspective on: Trilogy with AVAPS-AE respiratory rate 22, tidal volume 550, EPAP min 8, EPAP max 18, PSV min 5, PSV max 25, inspiratory time 1.0 seconds, 3 liters bleed in. If trilogy not supported then BiPAP with back up rate 22, IPAP 20, EPAP 10, 3 liters bleed in. Discussed with Dr. Reddy, will sign off, call with questions. 03/25 reconsulted for acute hypercarbic respiratory failure on 03/24 (ABG 7.256/95/78 after not wearing BiPAP the previous night). Placed on AVAPS but not providing adequate TV so placed on BiPAP RR22, / to give adequate TV, 30%. Currently patient awake on BIPAP 30% with sats 95% and states name, place but not year, nonfocal exam. Will transition to [place] oxygen now. Appears he is back to baseline from yesterday afternoon after wearing BiPAP overnight. No change in oxy
[2021-03-27] MEDS: FUROSEMIDE INJ 40 MG/4 ML VIAL IV PUSH (18:50)
[2021-03-27] MEDS: rOPINIRole HCL 0.25 MG TABLET PO (21:07)
[2021-03-27] MEDS: MONTELUKAST SODIUM 10 MG TABLET PO (21:07)
[2021-03-28] VITALS (19 sets, daily range): BP systolic 95–120; BP diastolic 50–84; PULSE 61–89; RESP 20–25; TEMP 36.4–36.5; O2SAT 93–99
[2021-03-28 04:48] LABS: Ammonia 42 umol/L (9-30)
[2021-03-28 05:08] LABS: Alanine Aminotransferase 14 U/L (4-50); Alkaline Phosphatase 65 U/L (38-126); Anion Gap 5 mmol/L (8-16); Aspartate Amino Transferase 28 U/L (17-59); Bilirubin,Total 1.8 mg/dL (0.2-1.3); Blood Urea Nitrogen 32 mg/dL (9-20); Calcium 8.9 mg/dL (8.4-10.2); Carbon Dioxide 39 mmol/L (22-30); Chloride 100 mmol/L (98-107); Estimated CRCL calculation 88 ml/min; Estimated Glomerular Filt Rate 60; Glucose 97 mg/dL (75-110); Magnesium 2.1 mg/dL (1.6-2.3); Potassium 4.2 mmol/L (3.4-5.0); Sodium 144 mmol/L (137-145)
[2021-03-28 05:10] LABS: INR 2.3; Prothrombin Time 25.6 Seconds (11.1-14.7)
[2021-03-28] MEDS: POTASSIUM CHLORIDE 20 MEQ TABLET.ER 40 MEQ PO ×2 (10:21→17:47)
[2021-03-28] MEDS: METOPROLOL TARTRATE 12.5 MG TABLET PO ×2 (10:21→20:04)
[2021-03-28] MEDS: LACTULOSE 20 GM/30 ML UDC PO ×2 (10:22→20:04)
[2021-03-28] MEDS: FUROSEMIDE INJ 40 MG/4 ML VIAL IV PUSH ×2 (10:22→17:47)
[2021-03-28] MEDS: SIMETHICONE 125 MG CHEW TAB PO (15:02)
--- NOTE | 2021-03-28 17:32 | PM.IMPN ---
Progress Note: A&P Assessment and Plan (1) Metabolic encephalopathy: Code(s): G93.41 - Metabolic encephalopathy Status: Acute (2) Fluid overload: Code(s): E87.70 - Fluid overload, unspecified Status: Acute (3) Anemia: Code(s): D64.9 - Anemia, unspecified Status: Acute Assessment and Plan: Patient has chronic anemia. Will continue to trend while hospitalized. (4) Renal failure: Code(s): N19 - Unspecified kidney failure Status: Acute Assessment and Plan: Patient most likely has chronic renal failure but records have been requested from [place] for review. Monitor while diuresing. (5) Elevated troponin: Code(s): R77.8 - Other specified abnormalities of plasma proteins Status: Acute Assessment and Plan: Likely related to CHF exacerbation and acute on chronic respiratory failure. seen by cardiology and no new recs given (6) CHF exacerbation: Code(s): I50.9 - Heart failure, unspecified Status: Acute Assessment and Plan: Cautious diuresis with close monitoring of renal function, blood pressures, and volume status. Echo results requested from [place] for review. cont current care cardio following no cardiac intervention at this time Recommend further workup outpatient after patient improves (7) Acute on chronic respiratory failure with hypoxia and hypercapnia: Code(s): J96.21 - Acute and chronic respiratory failure with hypoxia; J96.22 - Acute and chronic respiratory failure with hypercapnia Status: Acute Assessment and Plan: pt placed on Trilogy AVAP AE consult pulmonary Dr Arauz POC reviewed w him and recommendations greatly appreciated repeat ABG today with imporvement. (8) Gastroesophageal reflux disease: Code(s): K21.9 - Gastro-esophageal reflux disease without esophagitis Status: Acute (9) Pulmonary hypertension: Code(s): I27.20 - Pulmonary hypertension, unspecified Status: Acute (10) Chronic obstructive pulmonary disease: Code(s): J44.9 - Chronic obstructive pulmonary disease, unspecified Status: Acute Assessment and Plan: No acute exacerbation. stable Continue p.r.n. nebs. NOT ACTIVELY WHEEZING (11) Chronic anticoagulation: Code(s): Z79.01 - retirement (current) use of anticoagulants Status: Acute Assessment and Plan: Continue warfarin and monitor INR. (12) Atrial fibrillation: Code(s): I48.91 - Unspecified atrial fibrillation Status: Acute Assessment and Plan: He is rate controlled. ON WARFARIN INR elevated and warfarin held yesterday INR remains 3.5 today continue to hold (13) Tobacco dependence: Code(s): F17.200 - Nicotine dependence, unspecified, uncomplicated Status: Acute (14) Obstructive sleep apnea: Code(s): G47.33 - Obstructive sleep apnea (adult) (pediatric) Status: Acute Assessment and Plan: BiPAP to be used while hospitalized discharge settings per pulm (15) Congestive heart failure: Code(s): I50.9 - Heart failure, unspecified Status: Acute (16) Morbid obesity: Code(s): E66.01 - Morbid (severe) obesity due to excess calories Status: Acute Assessment and Plan: Patient has been unable to walk from his recent hospitalization. Initiate fall precautions. PT/OT consulted. mobilize pt 1800 CALORIE RESTRICTED DIET (17) Acute hypercapnic respiratory failure: Code(s): J96.02 - Acute respiratory failure with hypercapnia Status: Acute (18) Carbon dioxide narcosis: Code(s): R06.89 - Other abnormalities of breathing Status: Acute Assessment and Plan: resolved (19) Pulmonary edema: Qualifiers: Chronicity: acute Qualified Code(s): J81.0 - Acute pulmonary edema Code(s): J81.1 - Chronic pulmonary edema Status: Acute Additional Plan 03/20/2021 Pat
[2021-03-28] MEDS: WARFARIN (*PBKC) 7.5 MG TABLET PO (17:48)
[2021-03-28] MEDS: MONTELUKAST SODIUM 10 MG TABLET PO (20:04)
[2021-03-28] MEDS: rOPINIRole HCL 0.25 MG TABLET PO (20:04)
[2021-03-29] VITALS (17 sets, daily range): BP systolic 90–115; BP diastolic 34–73; PULSE 55–83; RESP 18–30; TEMP 36.1–36.9; O2SAT 93–100
[2021-03-29 02:55] LABS: INR 1.9; Prothrombin Time 22.5 Seconds (11.1-14.7)
[2021-03-29 03:02] LABS: Ammonia 41 umol/L (9-30)
[2021-03-29 03:04] LABS: Alanine Aminotransferase 14 U/L (4-50); Albumin Level 3.1 g/dL (3.5-5.1); Alkaline Phosphatase 65 U/L (38-126); Aspartate Amino Transferase 28 U/L (17-59); Bilirubin,Total 1.6 mg/dL (0.2-1.3); Blood Urea Nitrogen 28 mg/dL (9-20); Calcium 8.6 mg/dL (8.4-10.2); Carbon Dioxide > 40 mmol/L (22-30); Chloride 100 mmol/L (98-107); Estimated CRCL calculation 96 ml/min; Estimated Glomerular Filt Rate > 60; Glucose 115 mg/dL (75-110); Magnesium 2.1 mg/dL (1.6-2.3); Potassium 4.4 mmol/L (3.4-5.0); Sodium 147 mmol/L (137-145)
[2021-03-29] MEDS: METOPROLOL TARTRATE 12.5 MG TABLET PO ×2 (09:10→20:49)
[2021-03-29] MEDS: FUROSEMIDE INJ 40 MG/4 ML VIAL IV PUSH ×2 (09:10→17:20)
[2021-03-29] MEDS: LACTULOSE 20 GM/30 ML UDC PO ×2 (09:10→20:49)
[2021-03-29] MEDS: POTASSIUM CHLORIDE 20 MEQ TABLET.ER 40 MEQ PO ×2 (09:10→17:20)
[2021-03-29] MEDS: SIMETHICONE 125 MG CHEW TAB PO (09:39)
--- NOTE | 2021-03-29 11:54 | PCNFU ---
Nutrition Follow-Up Complete: Nutrition Diagnosis: Inadequate protein intake related to altered taste, food preferences as evidenced by patient refusal to eat many protein rich foods provided for some period of time, per statement. Nutrition Goal:Patient will consume 50% of meals/supplements Goal has been met, patient is consuming 75% of meals/supplements. Nutrition recommendation: Continue with the Heart Healthy diet and the Ensure compact (220 calories and 9 grams of protein) supplement BID. Last recorded weight is 188.5 kg. Weight is up from admission, which was 176.1 kg. Bowel Motility: Last documented on 03/27. Labs Reviewed:Alb (3.1), Na (147), BUN (28), Glu (115) Meds Noted: Lasix, Lopressor, Vitamin D3, Potassium Chloride, Albuterol, Singulair, Zofran, Coumadin, Ultram, Phazyme, Requip, Silicone Additional Notes: Patient reports food is going well and has no concerns/ questions at this time. Patient's skin around the abdomen area is rough and scaly. Follow up in 5 days.
--- NOTE | 2021-03-29 14:01 | PCPTNOTE ---
Decreased frequency this date due to decreased endurance to participate with therapy daily, will continue orders 2-3x/week.
--- NOTE | 2021-03-29 14:15 | PCNSR ---
On 03/29/21, the student,Roxie Phillips, provided care and completed [facility] documentation on this patient. I have reviewed the student's documentation and agree with the findings.
--- NOTE | 2021-03-29 16:00 | PM.PNPUL ---
Progress Note: A&P Assessment and Plan (1) Acute on chronic respiratory failure with hypoxia and hypercapnia: Code(s): J96.21 - Acute and chronic respiratory failure with hypoxia; J96.22 - Acute and chronic respiratory failure with hypercapnia Status: Acute Assessment and Plan: 03/20 Patient with a history of morbid obesity and now with acute on chronic hypercarbic and hypoxemic respiratory failure. The patient has alveolar hypoventilation syndrome in addition to his reported obstructive sleep apnea and fluid overload with a blood gas of 7.25/102/76 on 5 L nasal cannula on presentation. He also has biventricular failure with moderately enlarged RV with PASP 50 and moderate to severe MR. The patient has chronic hypercarbic respiratory failure from alveolar hypoventilation and morbid obesity and would benefit from noninvasive ventilation to prevent further deterioration and hospitalizations. The patient said the BiPAP 20/10 with 30% with ABG of 7.38/67/69 but was uncomfortable, went to AVAPS mode rate of 18/tidal volume 550, EPAP 10, inspiratory pressure min 11, inspiratory pressure max 25, inspiratory time 1.0 seconds, rise 3, 30% FIO2. Doubt active pneumonia and no need for antibiotics from a respiratory viewpoint. Doubt COPD exacerbation; no need for bronchodilators or inhaled/systemic steroids. 03/21 Patient wore AVAPS mode respiratory rate 18, tidal volume 550, EPAP 10, IPAP min 11, IPAP max 25, 30%, inspiratory time 1.0 seconds, rise 3 overnight with ABG at the end of the night of 7.35/68/82. He has LVEF 35-40%, moderately enlarged RV with reduced function, severely enlarged RA and LA, moderate to severe MR, mild TR with PASP 50. Download from [facility] from 12/15-03/14. Was compliant with CPAP 17 up until February avg use 10 h, 18 min, AHI was 2.3, apnea index 1.4, hypopnea index 0.9. His central apnea index was 0.1, obstructive apnea index 0.1, no Quirino-Moore respirations. Overall patient has been compliant but CPAP is not sufficient to treat his obesity hypoventilation syndrome and now requires noninvasive ventilation. 03/22 Feeling better today. Wore AVAPS mode respiratory rate 18, tidal volume 550, EPAP 10, IPAP min 11, IPAP max 25, 30%, inspiratory time 1.0 seconds, rise 3 overnight and did well. Overnight oximetry demonstrated a average saturation of 95%, lowest saturation was 91%. Time with saturation less than or equal to 88% was 0 minutes. Reordered RR increase to 22. While at [place] continue AVAPS mode respiratory rate 22, tidal volume 550, EPAP 10, IPAP min 11, IPAP max 25, FIO2 30%, inspiratory time 1.0 seconds, rise 3 overnight at night and when sleeps during day. [facility] may or may not be able to support AVAPS-AE noninvasive ventilation which would be best for patient. If they do not administer AVAPS AE NIV then he should be discharged on BiPAP 20/10 with 3 L bleed in. Ready for discharge from pulmonary perspective on: Trilogy with AVAPS-AE respiratory rate 22, tidal volume 550, EPAP min 8, EPAP max 18, PSV min 5, PSV max 25, inspiratory time 1.0 seconds, 3 liters bleed in. If trilogy not supported then BiPAP with back up rate 22, IPAP 20, EPAP 10, 3 liters bleed in. Discussed with Dr. Reddy, will sign off, call with questions. 03/25 reconsulted for acute hypercarbic respiratory failure on 03/24 (ABG 7.256/95/78 after not wearing BiPAP the previous night). Placed on AVAPS but not providing adequate TV so placed on BiPAP RR22, 24/12 to give adequate TV, 30%. Currently patient awake on BIPAP 30% with sats 95% and states name, place but not year, nonfocal exam. Will transition to [place] oxygen now. Appears he is back to baseline from yesterday afternoon after wearing BiPAP overnight. No change in oxygenation, afebrile, WBC 8.2 without evidence of pneumonia. Hospice has been consulted regarding goals of care with his multiple medical problems. ABG later in day on 2L NC 7.36//74. 03/26 Wore BiPAP overnight
--- NOTE | 2021-03-29 17:13 | PC.NURSE ---
orders to transfer to medical floor- report given to Benjie REINA- pt transferred via bariatric bed , O2 on 3l/nc-accompanied by staff and to room 253 without incident- belongings with pt
--- NOTE | 2021-03-29 17:19 | PC.NURSE ---
This patient, Stu Andujar, was received from IMU on 03/29/21 at 1720. Patient/family oriented to unit policies and routines
[2021-03-29] MEDS: WARFARIN (*PBKC) 7.5 MG TABLET PO (17:21)
[2021-03-29] MEDS: MONTELUKAST SODIUM 10 MG TABLET PO (20:50)
[2021-03-29] MEDS: rOPINIRole HCL 0.25 MG TABLET PO (20:50)
[2021-03-30] VITALS (13 sets, daily range): BP systolic 102–124; BP diastolic 50–67; PULSE 62–110; RESP 18–22; TEMP 35.6–36.9; O2SAT 93–97
[2021-03-30] MEDS: traMADol HCL (*CRX) 50 MG TABLET PO ×2 (03:23→14:45)
[2021-03-30 05:59] LABS: INR 1.9; Prothrombin Time 22.3 Seconds (11.1-14.7)
[2021-03-30 06:02] LABS: Ammonia < 9 umol/L (9-30)
[2021-03-30 06:05] LABS: Alanine Aminotransferase 14 U/L (4-50); Albumin Level 3.3 g/dL (3.5-5.1); Alkaline Phosphatase 66 U/L (38-126); Aspartate Amino Transferase 28 U/L (17-59); Bilirubin,Total 1.7 mg/dL (0.2-1.3); Blood Urea Nitrogen 26 mg/dL (9-20); Calcium 8.9 mg/dL (8.4-10.2); Carbon Dioxide > 40 mmol/L (22-30); Chloride 100 mmol/L (98-107); Estimated CRCL calculation 96 ml/min; Estimated Glomerular Filt Rate > 60; Glucose 102 mg/dL (75-110); Magnesium 2.1 mg/dL (1.6-2.3); Potassium 4.1 mmol/L (3.4-5.0); Sodium 149 mmol/L (137-145)
[2021-03-30] MEDS: POTASSIUM CHLORIDE 20 MEQ TABLET.ER 40 MEQ PO ×2 (08:35→18:13)
[2021-03-30] MEDS: ACETAMINOPHEN 325 MG TABLET 650 MG PO (08:35)
[2021-03-30] MEDS: LACTULOSE 20 GM/30 ML UDC PO ×2 (08:36→21:20)
[2021-03-30] MEDS: FUROSEMIDE INJ 40 MG/4 ML VIAL IV PUSH ×2 (08:36→18:14)
[2021-03-30] MEDS: METOPROLOL TARTRATE 12.5 MG TABLET PO ×2 (08:36→21:21)
[2021-03-30] MEDS: acetaZOLAMIDE TAB 250 MG TABLET PO (10:08)
--- NOTE | 2021-03-30 11:48 | PM.IMPN ---
Progress Note: A&P Additional Plan 03/20/2021 Patient admitted with acute exacerbation of CHF and acute hypoxemic hypercapnic respiratory failure with AMS. He remains on BiPAP. His case has been reviewed with respiratory therapy and RN. He is noted to be BiPAP dependent at this time although no repeat ABGs have been performed. Order placed for Dr. Arauz's expert consultation. Continue current care Patient will require ongoing inpatient hospitalization. 03/21/21 pt improving cardiology on board will follow recs for BiVent systolic failure intermittent bipap change diuretics to lasix 40mg IV BID c/s date night caregiver for assistance w LTAC (BiPAP dependent, needs agressive rehab) 03/22/21 remains confused cont diuresis cont home meds mobilize pt POC reviewed w of pt and pulmonology anticipate dc to LTAC when medically stable 03/23/2021 Patient remains confused Fluid balance is now positive after change of diuretics and CO2 is noted to be greater than 40 on labs this morning Ammonia was 81 yesterday, patient is on q.i.d. lactulose not sure if he is receiving and are not-> increased to 30 mg with t.i.d. dosing Rectal tube ordered as patient is super morbidly obese difficult to change in order to prevent skin breakdown with high doses of lactulose BiPAP per Dr. Arauz's recommendations Continue current care pt is DNR/DNI 03/25/2021: patiet ismore attentie and alert compared to yeserday per nursing staff and also family. discussed ith family at bedside today with nathanael. he has underlying chf with renal failu reand also hyperammonemia causing his end stage heart failure needing bipap support. reasonable to continue with hospice care with goal to comfort. i anticipate him to be on bipap support from here on due to her severe hyercapnic respiratory failure related to his chf and pulmonary edema and renal failure. He has multpile other comorbidies and high risk for recurrent admissions for the same. hospice care and treatment is appropriate and also advised to the patient and family at this point. all their questions were answered as far as posible. if hospice not chosen, he will need to go to LTAC for continued care and treatment. 03/26patient is much more coherent off BiPAP able to communicate his present in the room and feeding patient does not appear to be any distress is able to answer appropriately, his ammonia level is 15 and patient having several bowel movement will reduce his lactulose to 20 mg q.day will continue to monitor, will have a PT OT evaluate the patient and further recommendation to follow. 03/27 today patient little more confused his brother is present in the room who was visiting him from [place], her long discussion, patient remains on BiPAP unable to go to home there is no one to take care of him, his is elderly and ill, cannot go to local [facility] with a BiPAP, there is a possibility patient can go to LTAC pending authorization, will continue to monitor will check his INR, and his ammonia level and plan. 03/28 today patient daughter is present in the room patient is little more awake and communicative, patient ammonia level is elevated to 42 compared to 15 yesterday will increase patient lactulose 20 mg once a day to twice a a day, because the patient is morbidly obesity and confusion on and off he is unable to do his ADLs, and required significant assistance to help the patient, discussed with the patient daughter the best option for the patient is to go to LTAC and she has agreed, will waiting for the LTAC authorization from the insurance company and further recommendation to follow 03/29 patient remains clinically he is more talkative today, his ammonia level is 41 and patient is on lactulose 20 BID he his mentation better today, will CPM and monitor, no family member is present. 03/30/21 11:48 03/28 today patient daughter is present in the room patient is little more awake and communicative, patient amm
[2021-03-30] MEDS: WARFARIN (*PBKC) 7.5 MG TABLET PO (18:13)
[2021-03-30] MEDS: rOPINIRole HCL 0.25 MG TABLET PO (21:21)
[2021-03-30] MEDS: MONTELUKAST SODIUM 10 MG TABLET PO (21:21)
[2021-03-31] VITALS (12 sets, daily range): BP systolic 102–128; BP diastolic 58–85; PULSE 62–110; RESP 16–100; TEMP 35.9–37.2; O2SAT 94–100
[2021-03-31] MEDS: SIMETHICONE 125 MG CHEW TAB PO (03:13)
[2021-03-31 05:45] LABS: Ammonia 17 umol/L (9-30)
[2021-03-31 06:16] LABS: INR 2.4; Prothrombin Time 26.3 Seconds (11.1-14.7)
[2021-03-31 06:20] LABS: Alanine Aminotransferase 13 U/L (4-50); Albumin Level 3.2 g/dL (3.5-5.1); Alkaline Phosphatase 66 U/L (38-126); Aspartate Amino Transferase 26 U/L (17-59); Bilirubin,Total 1.6 mg/dL (0.2-1.3); Blood Urea Nitrogen 24 mg/dL (9-20); Carbon Dioxide > 40 mmol/L (22-30); Chloride 100 mmol/L (98-107); Estimated CRCL calculation 96 ml/min; Estimated Glomerular Filt Rate > 60; Glucose 93 mg/dL (75-110); Magnesium 2.1 mg/dL (1.6-2.3); Potassium 4.5 mmol/L (3.4-5.0); Sodium 147 mmol/L (137-145)
[2021-03-31] MEDS: FUROSEMIDE INJ 40 MG/4 ML VIAL IV PUSH ×2 (09:49→17:50)
[2021-03-31] MEDS: LACTULOSE 20 GM/30 ML UDC PO ×2 (09:49→20:46)
[2021-03-31] MEDS: POTASSIUM CHLORIDE 20 MEQ TABLET.ER 40 MEQ PO ×2 (09:50→17:51)
[2021-03-31] MEDS: acetaZOLAMIDE TAB 250 MG TABLET 500 MG PO (09:50)
[2021-03-31] MEDS: METOPROLOL TARTRATE 12.5 MG TABLET PO ×2 (09:51→20:46)
--- NOTE | 2021-03-31 12:11 | PM.IMPN ---
Progress Note: A&P Additional Plan 03/20/2021 Patient admitted with acute exacerbation of CHF and acute hypoxemic hypercapnic respiratory failure with AMS. He remains on BiPAP. His case has been reviewed with respiratory therapy and RN. He is noted to be BiPAP dependent at this time although no repeat ABGs have been performed. Order placed for Dr. Arauz's expert consultation. Continue current care Patient will require ongoing inpatient hospitalization. 03/21/21 pt improving cardiology on board will follow recs for BiVent systolic failure intermittent bipap change diuretics to lasix 40mg IV BID c/s primary care coordinator for assistance w LTAC (BiPAP dependent, needs agressive rehab) 03/22/21 remains confused cont diuresis cont home meds mobilize pt POC reviewed w of pt and pulmonology anticipate dc to LTAC when medically stable 03/23/2021 Patient remains confused Fluid balance is now positive after change of diuretics and CO2 is noted to be greater than 40 on labs this morning Ammonia was 81 yesterday, patient is on q.i.d. lactulose not sure if he is receiving and are not-> increased to 30 mg with t.i.d. dosing Rectal tube ordered as patient is super morbidly obese difficult to change in order to prevent skin breakdown with high doses of lactulose BiPAP per Dr. Arauz's recommendations Continue current care pt is DNR/DNI 03/25/2021: patiet ismore attentie and alert compared to yeserday per nursing staff and also family. discussed ith family at bedside today with nathanael. he has underlying chf with renal failu reand also hyperammonemia causing his end stage heart failure needing bipap support. reasonable to continue with hospice care with goal to comfort. i anticipate him to be on bipap support from here on due to her severe hyercapnic respiratory failure related to his chf and pulmonary edema and renal failure. He has multpile other comorbidies and high risk for recurrent admissions for the same. hospice care and treatment is appropriate and also advised to the patient and family at this point. all their questions were answered as far as posible. if hospice not chosen, he will need to go to LTAC for continued care and treatment. 03/26patient is much more coherent off BiPAP able to communicate his present in the room and feeding patient does not appear to be any distress is able to answer appropriately, his ammonia level is 15 and patient having several bowel movement will reduce his lactulose to 20 mg q.day will continue to monitor, will have a PT OT evaluate the patient and further recommendation to follow. 03/27 today patient little more confused his brother is present in the room who was visiting him from [place], her long discussion, patient remains on BiPAP unable to go to home there is no one to take care of him, his is elderly and ill, cannot go to local long-term with a BiPAP, there is a possibility patient can go to LTAC pending authorization, will continue to monitor will check his INR, and his ammonia level and plan. 03/28 today patient daughter is present in the room patient is little more awake and communicative, patient ammonia level is elevated to 42 compared to 15 yesterday will increase patient lactulose 20 mg once a day to twice a a day, because the patient is morbidly obesity and confusion on and off he is unable to do his ADLs, and required significant assistance to help the patient, discussed with the patient daughter the best option for the patient is to go to LTAC and she has agreed, will waiting for the LTAC authorization from the insurance company and further recommendation to follow 03/29 patient remains clinically he is more talkative today, his ammonia level is 41 and patient is on lactulose 20 BID he his mentation better today, will CPM and monitor, no family member is present. 03/30 today patient on BiPAP states feeling better, his ammonia level is less than 9 and is on lactulose 20 mg b.i.d., his menta
[2021-03-31] MEDS: WARFARIN (*PBKC) 7.5 MG TABLET PO (17:51)
[2021-03-31] MEDS: rOPINIRole HCL 0.25 MG TABLET PO (20:46)
[2021-03-31] MEDS: MONTELUKAST SODIUM 10 MG TABLET PO (20:46)
[2021-03-31 21:00] LABS: Glucose Point of Care 154 mg/dl (65-105)
[2021-04-01] VITALS (12 sets, daily range): BP systolic 93–122; BP diastolic 45–64; PULSE 58–116; RESP 18–26; TEMP 35.9–36.9; O2SAT 91–97
[2021-04-01] MEDS: traMADol HCL (*CRX) 50 MG TABLET PO (05:16)
[2021-04-01 06:05] LABS: Ammonia 27 umol/L (9-30)
[2021-04-01 06:09] LABS: Alanine Aminotransferase 13 U/L (4-50); Albumin Level 3.1 g/dL (3.5-5.1); Alkaline Phosphatase 64 U/L (38-126); Aspartate Amino Transferase 25 U/L (17-59); Bilirubin,Total 1.2 mg/dL (0.2-1.3); Blood Urea Nitrogen 24 mg/dL (9-20); Carbon Dioxide > 40 mmol/L (22-30); Chloride 99 mmol/L (98-107); Estimated CRCL calculation 95 ml/min; Estimated Glomerular Filt Rate > 60; Glucose 88 mg/dL (75-110); Magnesium 2.2 mg/dL (1.6-2.3); Potassium 4.6 mmol/L (3.4-5.0); Sodium 147 mmol/L (137-145)
[2021-04-01 08:07] LABS: INR 3.1; Prothrombin Time 32.5 Seconds (11.1-14.7)
[2021-04-01 08:10] LABS: Hematocrit 29.7 % (42.0-52.0); Hemoglobin 7.9 g/dL (14.0-18.0); Mean Corpuscular HGB Conc 26.6 g/dl (32-36); Mean Corpuscular Hemoglobin 23.1 pg (26-34); Mean Corpuscular Volume 86.8 fl (80-100); Mean Platelet Volume 9.5 fl (7.4-10.4); Platelet Count Result 118 k/mm3 (150-375); Red Blood Count 3.42 M/mm3 (4.6-6.20); White Blood Count 5.6 K/mm3 (4.5-10.0)
[2021-04-01] MEDS: POTASSIUM CHLORIDE 20 MEQ TABLET.ER 40 MEQ PO ×2 (09:13→16:58)
[2021-04-01] MEDS: METOPROLOL TARTRATE 12.5 MG TABLET PO ×2 (09:13→21:30)
[2021-04-01] MEDS: LACTULOSE 20 GM/30 ML UDC PO ×2 (09:13→21:30)
[2021-04-01] MEDS: FUROSEMIDE INJ 40 MG/4 ML VIAL IV PUSH ×2 (09:13→16:58)
--- NOTE | 2021-04-01 13:00 | P.PNIM_ITS ---
Progress Note: A&P Assessment and Plan (1) Metabolic encephalopathy: Code(s): G93.41 - Metabolic encephalopathy Status: Acute (2) Fluid overload: Code(s): E87.70 - Fluid overload, unspecified Status: Acute (3) Anemia: Code(s): D64.9 - Anemia, unspecified Status: Acute Assessment and Plan: Patient has chronic anemia. Will continue to trend while hospitalized. (4) Renal failure: Code(s): N19 - Unspecified kidney failure Status: Acute Assessment and Plan: Patient most likely has chronic renal failure but records have been requested from [place] for review. Monitor while diuresing. (5) Elevated troponin: Code(s): R77.8 - Other specified abnormalities of plasma proteins Status: Acute Assessment and Plan: Likely related to CHF exacerbation and acute on chronic respiratory failure. seen by cardiology and no new recs given (6) CHF exacerbation: Code(s): I50.9 - Heart failure, unspecified Status: Acute Assessment and Plan: Cautious diuresis with close monitoring of renal function, blood pressures, and volume status. Echo results requested from [place] for review. cont current care cardio following no cardiac intervention at this time Recommend further workup outpatient after patient improves (7) Acute on chronic respiratory failure with hypoxia and hypercapnia: Code(s): J96.21 - Acute and chronic respiratory failure with hypoxia; J96.22 - Acute and chronic respiratory failure with hypercapnia Status: Acute Assessment and Plan: pt placed on Trilogy AVAP AE consult pulmonary Dr Arauz POC reviewed w him and recommendations greatly appreciated repeat ABG today with imporvement. (8) Gastroesophageal reflux disease: Code(s): K21.9 - Gastro-esophageal reflux disease without esophagitis Status: Acute (9) Pulmonary hypertension: Code(s): I27.20 - Pulmonary hypertension, unspecified Status: Acute (10) Chronic obstructive pulmonary disease: Code(s): J44.9 - Chronic obstructive pulmonary disease, unspecified Status: Acute Assessment and Plan: No acute exacerbation. stable Continue p.r.n. nebs. NOT ACTIVELY WHEEZING (11) Chronic anticoagulation: Code(s): Z79.01 - senior living (current) use of anticoagulants Status: Acute Assessment and Plan: Continue warfarin and monitor INR. (12) Atrial fibrillation: Code(s): I48.91 - Unspecified atrial fibrillation Status: Acute Assessment and Plan: He is rate controlled. ON WARFARIN INR elevated and warfarin held yesterday INR remains 3.5 today continue to hold (13) Tobacco dependence: Code(s): F17.200 - Nicotine dependence, unspecified, uncomplicated Status: Acute (14) Obstructive sleep apnea: Code(s): G47.33 - Obstructive sleep apnea (adult) (pediatric) Status: Acute Assessment and Plan: BiPAP to be used while hospitalized discharge settings per pulm (15) Congestive heart failure: Code(s): I50.9 - Heart failure, unspecified Status: Acute (16) Morbid obesity: Code(s): E66.01 - Morbid (severe) obesity due to excess calories Status: Acute Assessment and Plan: Patient has been unable to walk from his recent hospitalization. Initiate fall precautions. PT/OT consulted. mobilize pt 1800 CALORIE RESTRICTED DIET (17) Acute hypercapnic respiratory failure:
[2021-04-01] MEDS: WARFARIN (*PBKC) 7.5 MG TABLET PO (16:58)
[2021-04-01] MEDS: MONTELUKAST SODIUM 10 MG TABLET PO (21:30)
[2021-04-01] MEDS: rOPINIRole HCL 0.25 MG TABLET PO (21:30)
[2021-04-02] VITALS (12 sets, daily range): BP systolic 91–117; BP diastolic 53–67; PULSE 61–88; RESP 18–28; TEMP 35.8–36.1; O2SAT 93–98
[2021-04-02 05:45] LABS: Hematocrit 32.2 % (42.0-52.0); Hemoglobin 8.3 g/dL (14.0-18.0); Mean Corpuscular HGB Conc 25.8 g/dl (32-36); Mean Corpuscular Hemoglobin 23.2 pg (26-34); Mean Corpuscular Volume 90.2 fl (80-100); Mean Platelet Volume 10.6 fl (7.4-10.4); Platelet Count Result 116 k/mm3 (150-375); Red Blood Count 3.57 M/mm3 (4.6-6.20); Red Cell Distribution Width 23.1 % (11.5-14.5); White Blood Count 5.7 K/mm3 (4.5-10.0)
[2021-04-02 05:55] LABS: INR 3.4; Prothrombin Time 34.5 Seconds (11.1-14.7)
[2021-04-02 06:03] LABS: Alanine Aminotransferase 11 U/L (4-50); Albumin Level 3.1 g/dL (3.5-5.1); Alkaline Phosphatase 62 U/L (38-126); Aspartate Amino Transferase 22 U/L (17-59); Bilirubin,Total 1.4 mg/dL (0.2-1.3); Blood Urea Nitrogen 24 mg/dL (9-20); Calcium 9.1 mg/dL (8.4-10.2); Carbon Dioxide > 40 mmol/L (22-30); Chloride 99 mmol/L (98-107); Estimated CRCL calculation 95 ml/min; Estimated Glomerular Filt Rate > 60; Glucose 91 mg/dL (75-110); Magnesium 2.2 mg/dL (1.6-2.3); Potassium 4.4 mmol/L (3.4-5.0); Sodium 146 mmol/L (137-145)
[2021-04-02 06:09] LABS: Ammonia 24 umol/L (9-30)
[2021-04-02] MEDS: POTASSIUM CHLORIDE 20 MEQ TABLET.ER 40 MEQ PO ×2 (09:19→16:53)
[2021-04-02] MEDS: FUROSEMIDE INJ 40 MG/4 ML VIAL IV PUSH ×2 (09:20→16:53)
[2021-04-02] MEDS: LACTULOSE 20 GM/30 ML UDC PO ×2 (09:20→20:28)
[2021-04-02] MEDS: METOPROLOL TARTRATE 12.5 MG TABLET PO ×2 (09:20→20:29)
--- NOTE | 2021-04-02 16:19 | P.PNPL_ITS ---
Progress Note: A&P Assessment and Plan (1) Acute on chronic respiratory failure with hypoxia and hypercapnia: Code(s): J96.21 - Acute and chronic respiratory failure with hypoxia; J96.22 - Acute and chronic respiratory failure with hypercapnia Status: Acute Assessment and Plan: 03/20 Patient with a history of morbid obesity and now with acute on chronic hypercarbic and hypoxemic respiratory failure. The patient has alveolar hypoventilation syndrome in addition to his reported obstructive sleep apnea and fluid overload with a blood gas of 7.25/102/76 on 5 L nasal cannula on presentation. He also has biventricular failure with moderately enlarged RV with PASP 50 and moderate to severe MR. The patient has chronic hypercarbic respiratory failure from alveolar hypoventilation and morbid obesity and would benefit from noninvasive ventilation to prevent further deterioration and hospitalizations. The patient said the BiPAP 20/10 with 30% with ABG of 7.38/67/69 but was uncomfortable, went to AVAPS mode rate of 18/tidal volume 550, EPAP 10, inspiratory pressure min 11, inspiratory pressure max 25, inspiratory time 1.0 seconds, rise 3, 30% FIO2. Doubt active pneumonia and no need for antibiotics from a respiratory viewpoint. Doubt COPD exacerbation; no need for bronchodilators or inhaled/systemic steroids. 03/21 Patient wore AVAPS mode respiratory rate 18, tidal volume 550, EPAP 10, IPAP min 11, IPAP max 25, 30%, inspiratory time 1.0 seconds, rise 3 overnight with ABG at the end of the night of 7.35/68/82. He has LVEF 35-40%, moderately enlarged RV with reduced function, severely enlarged RA and LA, moderate to severe MR, mild TR with PASP 50. Download from [employer] from 12/15-03/14. Was compliant with CPAP 17 up until February avg use 10 h, 18 min, AHI was 2.3, apnea index 1.4, hypopnea index 0.9. His central apnea index was 0.1, obstructive apnea index 0.1, no Quirino- Moore respirations. Overall patient has been compliant but CPAP is not sufficient to treat his obesity hypoventilation syndrome and now requires noninvasive ventilation. 03/22 Feeling better today. Wore AVAPS mode respiratory rate 18, tidal volume 550, EPAP 10, IPAP min 11, IPAP max 25, 30%, inspiratory time 1.0 seconds, rise 3 overnight and did well. Overnight oximetry demonstrated a average saturation of 95%, lowest saturation was 91%. Time with saturation less than or equal to 88% was 0 minutes. Reordered RR increase to 22. While at [place] continue AVAPS mode respiratory rate 22, tidal volume 550, EPAP 10, IPAP min 11, IPAP max 25, FIO2 30%, inspiratory time 1.0 seconds, rise 3 overnight at night and when sleeps during day. [facility] may or may not be able to support AVAPS-AE noninvasive ventilation which would be best for patient. If they do not administer AVAPS AE NIV then he should be discharged on BiPAP 20/10 with 3 L bleed in. Ready for discharge from pulmonary perspective on: Trilogy with AVAPS-AE respiratory rate 22, tidal volume 550, EPAP min 8, EPAP max 18, PSV min 5, PSV max 25, inspiratory time 1.0 seconds, 3 liters bleed in. If trilogy not supported then BiPAP with back up rate 22, IPAP 20, EPAP 10, 3 liters bleed in. Signed off. 03/25 reconsulted for acute hypercarbic respiratory failure on 03/24 (ABG 7.256/95/78 after not wearing BiPAP the previous night). Placed on AVAPS but not providing adequate TV so placed on BiPAP RR22, 24/12 to give adequate TV, 30%. Currently patient awake on BIPAP 30% with sats 95% and states name, place but not year, nonfocal exam. Will transition to [place] oxygen now. Appears he is back to baseline from yesterday afternoon after wearing BiPAP overnight. No change in oxygenation, afebrile
[2021-04-02] MEDS: MONTELUKAST SODIUM 10 MG TABLET PO (20:28)
[2021-04-02] MEDS: rOPINIRole HCL 0.25 MG TABLET PO (20:29)
[2021-04-03] VITALS (13 sets, daily range): BP systolic 98–120; BP diastolic 51–58; PULSE 61–88; RESP 18–25; TEMP 36.4–36.8; O2SAT 94–100
[2021-04-03 05:36] LABS: Hematocrit 30.1 % (42.0-52.0); Hemoglobin 7.9 g/dL (14.0-18.0); Mean Corpuscular HGB Conc 26.2 g/dl (32-36); Mean Corpuscular Volume 87.5 fl (80-100); Mean Platelet Volume 9.9 fl (7.4-10.4); Platelet Count Result 94 k/mm3 (150-375); Red Blood Count 3.44 M/mm3 (4.6-6.20); Red Cell Distribution Width 22.9 % (11.5-14.5); White Blood Count 5.4 K/mm3 (4.5-10.0)
[2021-04-03 05:43] LABS: INR 3.1; Prothrombin Time 32.8 Seconds (11.1-14.7)
[2021-04-03 06:01] LABS: Ammonia 24 umol/L (9-30)
[2021-04-03 06:10] LABS: Alanine Aminotransferase 13 U/L (4-50); Albumin Level 3.2 g/dL (3.5-5.1); Alkaline Phosphatase 66 U/L (38-126); Aspartate Amino Transferase 27 U/L (17-59); Bilirubin,Total 1.2 mg/dL (0.2-1.3); Blood Urea Nitrogen 24 mg/dL (9-20); Carbon Dioxide > 40 mmol/L (22-30); Chloride 99 mmol/L (98-107); Estimated CRCL calculation 95 ml/min; Estimated Glomerular Filt Rate > 60; Glucose 93 mg/dL (75-110); Magnesium 2.2 mg/dL (1.6-2.3); Potassium 4.2 mmol/L (3.4-5.0); Sodium 148 mmol/L (137-145)
[2021-04-03] MEDS: FUROSEMIDE INJ 40 MG/4 ML VIAL IV PUSH (09:36)
[2021-04-03] MEDS: POTASSIUM CHLORIDE 20 MEQ TABLET.ER 40 MEQ PO ×2 (09:36→17:34)
[2021-04-03] MEDS: LACTULOSE 20 GM/30 ML UDC PO ×2 (09:36→21:33)
[2021-04-03] MEDS: METOPROLOL TARTRATE 12.5 MG TABLET PO ×2 (09:37→21:33)
[2021-04-03] MEDS: ACETAMINOPHEN 325 MG TABLET 650 MG PO (09:40)
--- NOTE | 2021-04-03 10:09 | PM.IMPN ---
Progress Note: A&P Assessment and Plan (1) Metabolic encephalopathy: Code(s): G93.41 - Metabolic encephalopathy Status: Acute (2) Fluid overload: Code(s): E87.70 - Fluid overload, unspecified Status: Acute (3) Anemia: Code(s): D64.9 - Anemia, unspecified Status: Acute Assessment and Plan: Patient has chronic anemia. Will continue to trend while hospitalized. stable counts. (4) Renal failure: Code(s): N19 - Unspecified kidney failure Status: Acute Assessment and Plan: Patient most likely has chronic renal failure but records have been requested from [place] for review. Monitor while diuresing. (5) Elevated troponin: Code(s): R77.8 - Other specified abnormalities of plasma proteins Status: Acute Assessment and Plan: Likely related to CHF exacerbation and acute on chronic respiratory failure. seen by cardiology and no new recs given (6) CHF exacerbation: Code(s): I50.9 - Heart failure, unspecified Status: Acute Assessment and Plan: Cautious diuresis with close monitoring of renal function, blood pressures, and volume status. Echo results requested from [place] for review. cont current care cardio following no cardiac intervention at this time Recommend further workup outpatient after patient improves gera swich lasix to oral. add acetazolmaide for metabolic alkalosis. (7) Acute on chronic respiratory failure with hypoxia and hypercapnia: Code(s): J96.21 - Acute and chronic respiratory failure with hypoxia; J96.22 - Acute and chronic respiratory failure with hypercapnia Status: Acute Assessment and Plan: pt placed on Trilogy AVAP AE consult pulmonary Dr Arauz POC reviewed w him and recommendations greatly appreciated repeat ABG with imporvement. (8) Gastroesophageal reflux disease: Code(s): K21.9 - Gastro-esophageal reflux disease without esophagitis Status: Acute (9) Pulmonary hypertension: Code(s): I27.20 - Pulmonary hypertension, unspecified Status: Acute (10) Chronic obstructive pulmonary disease: Code(s): J44.9 - Chronic obstructive pulmonary disease, unspecified Status: Acute Assessment and Plan: No acute exacerbation. stable Continue p.r.n. nebs. NOT ACTIVELY WHEEZING (11) Chronic anticoagulation: Code(s): Z79.01 - long-term (current) use of anticoagulants Status: Acute Assessment and Plan: Continue warfarin and monitor INR. (12) Atrial fibrillation: Code(s): I48.91 - Unspecified atrial fibrillation Status: Acute Assessment and Plan: He is rate controlled. ON WARFARIN INR elevated and warfarin held yesterday INR remains 3.5 yesterday, held coumadin 04/02 3.1. will resume 6 mg coumadin tonight. recheck in am . (13) Tobacco dependence: Code(s): F17.200 - Nicotine dependence, unspecified, uncomplicated Status: Acute (14) Obstructive sleep apnea: Code(s): G47.33 - Obstructive sleep apnea (adult) (pediatric) Status: Acute Assessment and Plan: BiPAP to be used while hospitalized discharge settings per pulm (15) Congestive heart failure: Code(s): I50.9 - Heart failure, unspecified Status: Acute (16) Morbid obesity: Code(s): E66.01 - Morbid (severe) obesity due to excess calories Status: Acute Assessment and Plan: Patient has been unable to walk from his recent hospitalization. Initiate fall precautions. PT/OT consulted. mobilize pt 1800 CALORIE RESTRICTED DIET (17) Acute hypercapnic respiratory failure: Code(s): J96.02 - Acute respiratory failure with hypercapnia Status: Acute (18) Carbon dioxide narcosis: Code(s): R06.89 - Other abnormalities of breathing Status: Acute Assessment and Plan: resolved (19) Pulmonary edema: Qualifiers: Chronicity: acute Qualifi
--- NOTE | 2021-04-03 11:07 | PCNFU ---
Nutrition Follow-Up Complete: Inadequate protein intake related to altered taste, food preferences as evidenced by patient refusal to eat many protein rich foods provided for some period of time, per statement. Goal: Patient will consume 50% of meals/supplements Patient is meeting current goal. No new goal. Pt current nutrition is Heart Healthy with 1200 ml FR. Last recorded weight is 186.1 kg, up from 182 kg on admit. Bowel Motility:+BM reported 04/03 Labs Reviewed:Na 148,Hgb7.9,Hct 30.1,Alb 3.2 Meds Noted:Requip, Zofran,Lopressor, Singulair,KCL Tablet, Lactulose. Additional Notes: Patient seen today for nutrition follow up. Patient has been eating 100% of heart healthy diet. Fluid Restriction continues at 1200 ml per day. Na improving. Agree with diet orders. Monitoring: Follow up in 7 days.
[2021-04-03] MEDS: traMADol HCL (*CRX) 50 MG TABLET PO (12:41)
[2021-04-03] MEDS: SIMETHICONE 125 MG CHEW TAB PO (14:49)
[2021-04-03] MEDS: WARFARIN (*PBKC) 3 MG TABLET 6 MG PO (17:34)
[2021-04-03] MEDS: FUROSEMIDE 40 MG TABLET PO (17:34)
[2021-04-03] MEDS: rOPINIRole HCL 0.25 MG TABLET PO (21:33)
[2021-04-03] MEDS: MONTELUKAST SODIUM 10 MG TABLET PO (21:33)
[2021-04-04] VITALS (15 sets, daily range): BP systolic 101–135; BP diastolic 48–80; PULSE 59–109; RESP 14–25; TEMP 36.3–36.7; O2SAT 94–100
[2021-04-04 05:33] LABS: Basophils Percent Auto 0.8 % (0.2-1.2); Eosinophils Absolute Auto 0.3 K/mm3 (0-0.3); Eosinophils Percent Auto 5.5 % (0-4.4); Hemoglobin 7.7 g/dL (14.0-18.0); Immature Granulocyte Absolute 0.02 K/mm3 (0.00-0.031); Immature Granulocyte Percent A 0.4 % (0-0.5); Lymphocytes Absolute Auto 1.34 K/mm3 (0.9-3.2); Lymphocytes Percent Auto 26.1 % (18.3-44.2); Mean Corpuscular HGB Conc 26.6 g/dl (32-36); Mean Corpuscular Hemoglobin 23.2 pg (26-34); Mean Corpuscular Volume 87.3 fl (80-100); Mean Platelet Volume 10.2 fl (7.4-10.4); Monocytes Absolute Auto 0.8 K/mm3 (0.1-0.6); Monocytes Percent Auto 14.8 % (2.6-8.5); Neutrophils Absolute Auto 2.7 K/mm3 (1.3-6.7); Neutrophils Percent Auto 52.4 % (45.5-73.1); Platelet Count Result 91 k/mm3 (150-375); Red Blood Count 3.32 M/mm3 (4.6-6.20); Red Cell Distribution Width 22.9 % (11.5-14.5); White Blood Count 5.1 K/mm3 (4.5-10.0)
[2021-04-04] MEDS: SIMETHICONE 125 MG CHEW TAB PO ×2 (05:42→16:42)
[2021-04-04 05:57] LABS: Hypochromasia 2+ (NORMAL); Platelet Estimate Decreased (Adequate)
[2021-04-04 05:58] LABS: Anisocytosis 1+ (NORMAL)
[2021-04-04 05:59] LABS: INR 2.6; Prothrombin Time 28.6 Seconds (11.1-14.7)
[2021-04-04 06:01] LABS: Blood Urea Nitrogen 25 mg/dL (9-20); Calcium 9.3 mg/dL (8.4-10.2); Carbon Dioxide > 40 mmol/L (22-30); Chloride 100 mmol/L (98-107); Estimated CRCL calculation 105 ml/min; Estimated Glomerular Filt Rate > 60; Glucose 94 mg/dL (75-110); Potassium 4.4 mmol/L (3.4-5.0); Sodium 149 mmol/L (137-145)
[2021-04-04] MEDS: FUROSEMIDE 40 MG TABLET PO (09:21)
[2021-04-04] MEDS: LACTULOSE 20 GM/30 ML UDC PO ×2 (09:22→19:54)
[2021-04-04] MEDS: POTASSIUM CHLORIDE 20 MEQ TABLET.ER 40 MEQ PO ×2 (09:22→17:16)
[2021-04-04] MEDS: acetaZOLAMIDE TAB 250 MG TABLET 500 MG PO (09:22)
[2021-04-04] MEDS: METOPROLOL TARTRATE 12.5 MG TABLET PO ×2 (09:22→19:54)
[2021-04-04] MEDS: ACETAMINOPHEN 325 MG TABLET 650 MG PO (09:25)
--- NOTE | 2021-04-04 10:45 | PM.IMPN ---
Progress Note: A&P Assessment and Plan (1) Metabolic encephalopathy: Code(s): G93.41 - Metabolic encephalopathy Status: Acute (2) Fluid overload: Code(s): E87.70 - Fluid overload, unspecified Status: Acute (3) Anemia: Code(s): D64.9 - Anemia, unspecified Status: Acute Assessment and Plan: Patient has chronic anemia. Will continue to trend while hospitalized. stable counts. (4) Renal failure: Code(s): N19 - Unspecified kidney failure Status: Acute Assessment and Plan: Patient most likely has chronic renal failure but records have been requested from [place] for review. Monitor while diuresing. (5) Elevated troponin: Code(s): R77.8 - Other specified abnormalities of plasma proteins Status: Acute Assessment and Plan: Likely related to CHF exacerbation and acute on chronic respiratory failure. seen by cardiology and no new recs given (6) CHF exacerbation: Code(s): I50.9 - Heart failure, unspecified Status: Acute Assessment and Plan: Cautious diuresis with close monitoring of renal function, blood pressures, and volume status. Echo results requested from [place] for review. cont current care cardio following no cardiac intervention at this time Recommend further workup outpatient after patient improves gera swich lasix to oral. add acetazolmaide for metabolic alkalosis. with inrreasing sodiumlevel, will loosen his fluid restriction to 1500 c c per day. contineu to monitor. urine looks a little darker as well. (7) Acute on chronic respiratory failure with hypoxia and hypercapnia: Code(s): J96.21 - Acute and chronic respiratory failure with hypoxia; J96.22 - Acute and chronic respiratory failure with hypercapnia Status: Acute Assessment and Plan: pt placed on Trilogy AVAP AE consult pulmonary Dr Arauz POC reviewed w him and recommendations greatly appreciated repeat ABG with imporvement. (8) Gastroesophageal reflux disease: Code(s): K21.9 - Gastro-esophageal reflux disease without esophagitis Status: Acute (9) Pulmonary hypertension: Code(s): I27.20 - Pulmonary hypertension, unspecified Status: Acute (10) Chronic obstructive pulmonary disease: Code(s): J44.9 - Chronic obstructive pulmonary disease, unspecified Status: Acute Assessment and Plan: No acute exacerbation. stable Continue p.r.n. nebs. NOT ACTIVELY WHEEZING (11) Chronic anticoagulation: Code(s): Z79.01 - group home (current) use of anticoagulants Status: Acute Assessment and Plan: Continue warfarin and monitor INR. (12) Atrial fibrillation: Code(s): I48.91 - Unspecified atrial fibrillation Status: Acute Assessment and Plan: He is rate controlled. ON WARFARIN INR elevated and warfarin held yesterday INR remains 3.5 yesterday, held coumadin 04/02 3.1. will resume 6 mg coumadin tonight. recheck in am . (13) Tobacco dependence: Code(s): F17.200 - Nicotine dependence, unspecified, uncomplicated Status: Acute (14) Obstructive sleep apnea: Code(s): G47.33 - Obstructive sleep apnea (adult) (pediatric) Status: Acute Assessment and Plan: BiPAP to be used while hospitalized discharge settings per pulm (15) Congestive heart failure: Code(s): I50.9 - Heart failure, unspecified Status: Acute (16) Morbid obesity: Code(s): E66.01 - Morbid (severe) obesity due to excess calories Status: Acute Assessment and Plan: Patient has been unable to walk from his recent hospitalization. Initiate fall precautions. PT/OT consulted. mobilize pt 1800 CALORIE RESTRICTED DIET (17) Acute hypercapnic respiratory failure: Code(s): J96.02 - Acute respiratory failure with hypercapnia Status: Acute (18) Carbon dioxide narcosis: Code(s): R06.89 - Other abnormalities of breath
[2021-04-04 11:48] LABS: Add Urine Microscopic? YES; Appearance Urine Cloudy (Clear); Bilirubin Urine Negative (Negative); Blood Urine 3+ (Negative); Color Urine Amber (Yellow); Glucose Urine UA Negative (Negative); Ketones Urine Negative (Negative); Leukocyte Esterase Ur 2+ LEU/UL (NEGATIVE); Mucus Urine Rare /lpf; Nitrate Urine Negative (Negative); Protein Urine 2+ mg/dL (Negative); RBC Urine >75 /hpf (0-2); Specific Grav Ur 1.015 (1.001-1.035); WBC Urine 21-30 /hpf (0-3)
[2021-04-04] MEDS: traMADol HCL (*CRX) 50 MG TABLET PO (17:16)
[2021-04-04] MEDS: rOPINIRole HCL 0.25 MG TABLET PO (19:54)
[2021-04-04] MEDS: MONTELUKAST SODIUM 10 MG TABLET PO (19:54)
[2021-04-05] VITALS (11 sets, daily range): BP systolic 106–118; BP diastolic 54–61; PULSE 64–89; RESP 18–24; TEMP 36.3–36.6; O2SAT 94–100
[2021-04-05 06:00] LABS: Basophils Percent Auto 0.8 % (0.2-1.2); Eosinophils Absolute Auto 0.3 K/mm3 (0-0.3); Eosinophils Percent Auto 5.6 % (0-4.4); Hematocrit 28.1 % (42.0-52.0); Hemoglobin 7.4 g/dL (14.0-18.0); Immature Granulocyte Absolute 0.03 K/mm3 (0.00-0.031); Immature Granulocyte Percent A 0.6 % (0-0.5); Immature Platelet Fraction Pct 4.2 % (0.9-11.2); Lymphocytes Percent Auto 27.1 % (18.3-44.2); Mean Corpuscular HGB Conc 26.3 g/dl (32-36); Mean Corpuscular Hemoglobin 23.1 pg (26-34); Mean Corpuscular Volume 87.5 fl (80-100); Mean Platelet Volume 10.3 fl (7.4-10.4); Monocytes Absolute Auto 0.7 K/mm3 (0.1-0.6); Monocytes Percent Auto 14.8 % (2.6-8.5); Neutrophils Absolute Auto 2.4 K/mm3 (1.3-6.7); Neutrophils Percent Auto 51.1 % (45.5-73.1); Platelet Count Result 81 k/mm3 (150-375); Red Blood Count 3.21 M/mm3 (4.6-6.20); Red Cell Distribution Width 23.1 % (11.5-14.5); White Blood Count 4.8 K/mm3 (4.5-10.0)
[2021-04-05 06:12] LABS: INR 2.6; Prothrombin Time 28.6 Seconds (11.1-14.7)
[2021-04-05 06:23] LABS: Alanine Aminotransferase 13 U/L (4-50); Albumin Level 3.3 g/dL (3.5-5.1); Alkaline Phosphatase 62 U/L (38-126); Aspartate Amino Transferase 26 U/L (17-59); Bilirubin,Total 1.3 mg/dL (0.2-1.3); Blood Urea Nitrogen 26 mg/dL (9-20); Calcium 9.3 mg/dL (8.4-10.2); Carbon Dioxide > 40 mmol/L (22-30); Chloride 101 mmol/L (98-107); Estimated CRCL calculation 97 ml/min; Estimated Glomerular Filt Rate > 60; Glucose 99 mg/dL (75-110); Potassium 4.2 mmol/L (3.4-5.0); Sodium 147 mmol/L (137-145)
[2021-04-05 06:37] LABS: Hypochromasia 2+ (NORMAL); Platelet Estimate Decreased (Adequate)
[2021-04-05] MEDS: POTASSIUM CHLORIDE 20 MEQ TABLET.ER 40 MEQ PO ×2 (08:15→17:46)
[2021-04-05] MEDS: METOPROLOL TARTRATE 12.5 MG TABLET PO ×2 (08:16→20:27)
[2021-04-05] MEDS: acetaZOLAMIDE TAB 250 MG TABLET 500 MG PO (08:16)
[2021-04-05] MEDS: LACTULOSE 20 GM/30 ML UDC PO ×2 (08:16→20:28)
[2021-04-05] MEDS: FUROSEMIDE 40 MG TABLET PO ×2 (08:16→17:46)
[2021-04-05] MEDS: traMADol HCL (*CRX) 50 MG TABLET PO (08:40)
[2021-04-05] MEDS: ACETAMINOPHEN 325 MG TABLET 650 MG PO (11:39)
--- NOTE | 2021-04-05 12:52 | PM.IMPN ---
Progress Note: A&P Assessment and Plan (1) Metabolic encephalopathy: Code(s): G93.41 - Metabolic encephalopathy Status: Acute (2) Fluid overload: Code(s): E87.70 - Fluid overload, unspecified Status: Acute (3) Anemia: Code(s): D64.9 - Anemia, unspecified Status: Acute Assessment and Plan: Patient has chronic anemia. Will continue to trend while hospitalized. stable counts. (4) Renal failure: Code(s): N19 - Unspecified kidney failure Status: Acute Assessment and Plan: Patient most likely has chronic renal failure but records have been requested from [place] for review. Monitor while diuresing. (5) Elevated troponin: Code(s): R77.8 - Other specified abnormalities of plasma proteins Status: Acute Assessment and Plan: Likely related to CHF exacerbation and acute on chronic respiratory failure. seen by cardiology and no new recs given (6) CHF exacerbation: Code(s): I50.9 - Heart failure, unspecified Status: Acute Assessment and Plan: Cautious diuresis with close monitoring of renal function, blood pressures, and volume status. Echo results requested from [place] for review. cont current care cardio following no cardiac intervention at this time Recommend further workup outpatient after patient improves gera swich lasix to oral. add acetazolmaide for metabolic alkalosis. with inrreasing sodiumlevel, will loosen his fluid restriction to 1500 c c per day. contineu to monitor. urine looks a little darker as well. (7) Acute on chronic respiratory failure with hypoxia and hypercapnia: Code(s): J96.21 - Acute and chronic respiratory failure with hypoxia; J96.22 - Acute and chronic respiratory failure with hypercapnia Status: Acute Assessment and Plan: pt placed on Trilogy AVAP AE consult pulmonary Dr Arauz POC reviewed w him and recommendations greatly appreciated repeat ABG with imporvement. (8) Gastroesophageal reflux disease: Code(s): K21.9 - Gastro-esophageal reflux disease without esophagitis Status: Acute (9) Pulmonary hypertension: Code(s): I27.20 - Pulmonary hypertension, unspecified Status: Acute (10) Chronic obstructive pulmonary disease: Code(s): J44.9 - Chronic obstructive pulmonary disease, unspecified Status: Acute Assessment and Plan: No acute exacerbation. stable Continue p.r.n. nebs. NOT ACTIVELY WHEEZING (11) Chronic anticoagulation: Code(s): Z79.01 - long-term (current) use of anticoagulants Status: Acute Assessment and Plan: Continue warfarin and monitor INR. (12) Atrial fibrillation: Code(s): I48.91 - Unspecified atrial fibrillation Status: Acute Assessment and Plan: He is rate controlled. ON WARFARIN INR elevated and warfarin held yesterday INR remains 3.5 yesterday, held coumadin 04/02 3.1. will resume 6 mg coumadin tonight. recheck in am . (13) Tobacco dependence: Code(s): F17.200 - Nicotine dependence, unspecified, uncomplicated Status: Acute (14) Obstructive sleep apnea: Code(s): G47.33 - Obstructive sleep apnea (adult) (pediatric) Status: Acute Assessment and Plan: BiPAP to be used while hospitalized discharge settings per pulm (15) Congestive heart failure: Code(s): I50.9 - Heart failure, unspecified Status: Acute (16) Morbid obesity: Code(s): E66.01 - Morbid (severe) obesity due to excess calories Status: Acute Assessment and Plan: Patient has been unable to walk from his recent hospitalization. Initiate fall precautions. PT/OT consulted. mobilize pt 1800 CALORIE RESTRICTED DIET (17) Acute hypercapnic respiratory failure: Code(s): J96.02 - Acute respiratory failure with hypercapnia Status: Acute (18) Carbon dioxide narcosis: Code(s): R06.89 - Other abnormalities of breath
[2021-04-05] MEDS: HYOSCYAMINE SULFATE 0.0625 MG TABLET PO (13:04)
[2021-04-05] MEDS: rOPINIRole HCL 0.25 MG TABLET PO (20:27)
[2021-04-05] MEDS: MONTELUKAST SODIUM 10 MG TABLET PO (20:27)
[2021-04-06] VITALS (10 sets, daily range): BP systolic 100–120; BP diastolic 52–76; PULSE 65–100; RESP 18–28; TEMP 36.1–36.6; O2SAT 94–100
[2021-04-06] MEDS: traMADol HCL (*CRX) 50 MG TABLET PO (05:06)
[2021-04-06 06:14] LABS: Basophils Absolute Auto 0.1 K/mm3 (0.0-0.1); Eosinophils Absolute Auto 0.2 K/mm3 (0-0.3); Eosinophils Percent Auto 3.6 % (0-4.4); Hematocrit 29.9 % (42.0-52.0); Hemoglobin 7.8 g/dL (14.0-18.0); Immature Granulocyte Absolute 0.01 K/mm3 (0.00-0.031); Immature Granulocyte Percent A 0.2 % (0-0.5); Lymphocytes Absolute Auto 1.21 K/mm3 (0.9-3.2); Lymphocytes Percent Auto 24.3 % (18.3-44.2); Mean Corpuscular HGB Conc 26.1 g/dl (32-36); Mean Corpuscular Hemoglobin 23.2 pg (26-34); Mean Platelet Volume 10.8 fl (7.4-10.4); Monocytes Absolute Auto 0.7 K/mm3 (0.1-0.6); Monocytes Percent Auto 14.3 % (2.6-8.5); Neutrophils Absolute Auto 2.8 K/mm3 (1.3-6.7); Neutrophils Percent Auto 56.6 % (45.5-73.1); Platelet Count Result 81 k/mm3 (150-375); Red Blood Count 3.36 M/mm3 (4.6-6.20); Red Cell Distribution Width 22.9 % (11.5-14.5)
[2021-04-06 06:17] LABS: Alanine Aminotransferase 14 U/L (4-50); Albumin Level 3.5 g/dL (3.5-5.1); Alkaline Phosphatase 69 U/L (38-126); Aspartate Amino Transferase 30 U/L (17-59); Bilirubin,Total 1.4 mg/dL (0.2-1.3); Blood Urea Nitrogen 28 mg/dL (9-20); Calcium 9.1 mg/dL (8.4-10.2); Carbon Dioxide > 40 mmol/L (22-30); Chloride 99 mmol/L (98-107); Estimated CRCL calculation 91 ml/min; Estimated Glomerular Filt Rate 60; Glucose 108 mg/dL (75-110); Potassium 4.8 mmol/L (3.4-5.0); Sodium 148 mmol/L (137-145)
[2021-04-06 06:21] LABS: INR 2.2; Prothrombin Time 25.1 Seconds (11.1-14.7)
[2021-04-06] MEDS: POTASSIUM CHLORIDE 20 MEQ TABLET.ER 40 MEQ PO (08:06)
[2021-04-06] MEDS: FUROSEMIDE 40 MG TABLET PO ×2 (08:07→16:09)
[2021-04-06] MEDS: METOPROLOL TARTRATE 12.5 MG TABLET PO ×2 (08:07→20:42)
[2021-04-06] MEDS: acetaZOLAMIDE TAB 250 MG TABLET 500 MG PO (08:07)
[2021-04-06] MEDS: LACTULOSE 20 GM/30 ML UDC PO ×2 (08:08→20:41)
[2021-04-06 08:48] LABS: Hypochromasia 2+ (NORMAL); Platelet Estimate Decreased (Adequate)
[2021-04-06] MEDS: AMPICILLIN 1 GM/NS 50 ML 1 GM/50 ML BAG IVPB ×2 (16:09→22:07)
[2021-04-06] MEDS: ACETAMINOPHEN 325 MG TABLET 650 MG PO (16:17)
--- NOTE | 2021-04-06 16:42 | PM.IMPN ---
Progress Note: A&P Assessment and Plan (1) Metabolic encephalopathy: Code(s): G93.41 - Metabolic encephalopathy Status: Acute (2) Fluid overload: Code(s): E87.70 - Fluid overload, unspecified Status: Acute (3) Anemia: Code(s): D64.9 - Anemia, unspecified Status: Acute Assessment and Plan: Patient has chronic anemia. Will continue to trend while hospitalized. stable counts. (4) Renal failure: Code(s): N19 - Unspecified kidney failure Status: Acute Assessment and Plan: Patient most likely has chronic renal failure but records have been requested from [place] for review. Monitor while diuresing. His urine output has lowered since switching to oral diuretic. Will continue to monitor. Continue on fluid restriction of 1500 cc per day. (5) Elevated troponin: Code(s): R77.8 - Other specified abnormalities of plasma proteins Status: Acute Assessment and Plan: Likely related to CHF exacerbation and acute on chronic respiratory failure. seen by cardiology and no new recs given (6) CHF exacerbation: Code(s): I50.9 - Heart failure, unspecified Status: Acute Assessment and Plan: Cautious diuresis with close monitoring of renal function, blood pressures, and volume status. Echo results requested from [place] for review. cont current care cardio following no cardiac intervention at this time Recommend further workup outpatient after patient improves gera swich lasix to oral. add acetazolmaide for metabolic alkalosis. with inrreasing sodiumlevel, will loosen his fluid restriction to 1500 c c per day. contineu to monitor. urine looks a little darker as well. Chest x-ray repeat today with improving perihilar infiltrate and edema. Continue on BiPAP support every night and p.r.n. during daytime while sleeping (7) Acute on chronic respiratory failure with hypoxia and hypercapnia: Code(s): J96.21 - Acute and chronic respiratory failure with hypoxia; J96.22 - Acute and chronic respiratory failure with hypercapnia Status: Acute Assessment and Plan: pt placed on Trilogy AVAP AE consult pulmonary Dr Arauz POC reviewed w him and recommendations greatly appreciated repeat ABG with imporvement. Needs trilogy AVAP (8) Gastroesophageal reflux disease: Code(s): K21.9 - Gastro-esophageal reflux disease without esophagitis Status: Acute (9) Pulmonary hypertension: Code(s): I27.20 - Pulmonary hypertension, unspecified Status: Acute (10) Chronic obstructive pulmonary disease: Code(s): J44.9 - Chronic obstructive pulmonary disease, unspecified Status: Acute Assessment and Plan: No acute exacerbation. stable Continue p.r.n. nebs. NOT ACTIVELY WHEEZING (11) Chronic anticoagulation: Code(s): Z79.01 - [employer] (current) use of anticoagulants Status: Acute Assessment and Plan: Continue warfarin and monitor INR. (12) Atrial fibrillation: Code(s): I48.91 - Unspecified atrial fibrillation Status: Acute Assessment and Plan: He is rate controlled. ON WARFARIN INR elevated and warfarin held yesterday INR remains 3.5 yesterday, held coumadin 04/02 3.1. will resume 6 mg coumadin tonight. recheck in am . Coumadin dosing adjustment as needed (13) Tobacco dependence: Code(s): F17.200 - Nicotine dependence, unspecified, uncomplicated Status: Acute (14) Obstructive sleep apnea: Code(s): G47.33 - Obstructive sleep apnea (adult) (pediatric) Status: Acute Assessment and Plan: BiPAP to be used while hospitalized discharge settings per pulm (15) Congestive heart failure: Code(s): I50.9 - Heart failure, unspecified Status: Acute (16) Morbid obesity: Code(s): E66.01 - Morbid (severe) obesity due to excess calories Status: Acute Assessment and Plan: Patient has been unable
--- NOTE | 2021-04-06 17:30 | PM.PNPUL ---
Progress Note: A&P Assessment and Plan (1) Acute on chronic respiratory failure with hypoxia and hypercapnia: Code(s): J96.21 - Acute and chronic respiratory failure with hypoxia; J96.22 - Acute and chronic respiratory failure with hypercapnia Status: Acute Assessment and Plan: 03/20 Patient with a history of morbid obesity and now with acute on chronic hypercarbic and hypoxemic respiratory failure. The patient has alveolar hypoventilation syndrome in addition to his reported obstructive sleep apnea and fluid overload with a blood gas of 7.25/102/76 on 5 L nasal cannula on presentation. He also has biventricular failure with moderately enlarged RV with PASP 50 and moderate to severe MR. The patient has chronic hypercarbic respiratory failure from alveolar hypoventilation and morbid obesity and would benefit from noninvasive ventilation to prevent further deterioration and hospitalizations. The patient said the BiPAP 20/10 with 30% with ABG of 7.38/67/69 but was uncomfortable, went to AVAPS mode rate of 18/tidal volume 550, EPAP 10, inspiratory pressure min 11, inspiratory pressure max 25, inspiratory time 1.0 seconds, rise 3, 30% FIO2. Doubt active pneumonia and no need for antibiotics from a respiratory viewpoint. Doubt COPD exacerbation; no need for bronchodilators or inhaled/systemic steroids. 03/21 Patient wore AVAPS mode respiratory rate 18, tidal volume 550, EPAP 10, IPAP min 11, IPAP max 25, 30%, inspiratory time 1.0 seconds, rise 3 overnight with ABG at the end of the night of 7.35/68/82. He has LVEF 35-40%, moderately enlarged RV with reduced function, severely enlarged RA and LA, moderate to severe MR, mild TR with PASP 50. Download from [employer] from 12/15-03/14. Was compliant with CPAP 17 up until February avg use 10 h, 18 min, AHI was 2.3, apnea index 1.4, hypopnea index 0.9. His central apnea index was 0.1, obstructive apnea index 0.1, no Quirino-Moore respirations. Overall patient has been compliant but CPAP is not sufficient to treat his obesity hypoventilation syndrome and now requires noninvasive ventilation. 03/22 Feeling better today. Wore AVAPS mode respiratory rate 18, tidal volume 550, EPAP 10, IPAP min 11, IPAP max 25, 30%, inspiratory time 1.0 seconds, rise 3 overnight and did well. Overnight oximetry demonstrated a average saturation of 95%, lowest saturation was 91%. Time with saturation less than or equal to 88% was 0 minutes. Reordered RR increase to 22. While at [place] continue AVAPS mode respiratory rate 22, tidal volume 550, EPAP 10, IPAP min 11, IPAP max 25, FIO2 30%, inspiratory time 1.0 seconds, rise 3 overnight at night and when sleeps during day. [facility] may or may not be able to support AVAPS-AE noninvasive ventilation which would be best for patient. If they do not administer AVAPS AE NIV then he should be discharged on BiPAP 20/10 with 3 L bleed in. Ready for discharge from pulmonary perspective on: Trilogy with AVAPS-AE respiratory rate 22, tidal volume 550, EPAP min 8, EPAP max 18, PSV min 5, PSV max 25, inspiratory time 1.0 seconds, 3 liters bleed in. If trilogy not supported then BiPAP with back up rate 22, IPAP 20, EPAP 10, 3 liters bleed in. Signed off. 03/25 reconsulted for acute hypercarbic respiratory failure on 03/24 (ABG 7.256/95/78 after not wearing BiPAP the previous night). Placed on AVAPS but not providing adequate TV so placed on BiPAP RR22, 24/12 to give adequate TV, 30%. Currently patient awake on BIPAP 30% with sats 95% and states name, place but not year, nonfocal exam. Will transition to [place] oxygen now. Appears he is back to baseline from yesterday afternoon after wearing BiPAP overnight. No change in oxygenation, afebrile, WBC 8.2 without evidence of pneumonia. Hospice has been consulted regarding goals of care with his multiple medical problems. ABG later in day on 2L NC 7.36/74/74. 03/26 Wore BiPAP overnight but having issues with leak and too much pressure on
[2021-04-06] MEDS: rOPINIRole HCL 0.25 MG TABLET PO (20:43)
[2021-04-06] MEDS: MONTELUKAST SODIUM 10 MG TABLET PO (20:43)
[2021-04-07] VITALS (12 sets, daily range): BP systolic 101–136; BP diastolic 56–67; PULSE 53–81; RESP 18–29; TEMP 35.7–36.6; O2SAT 88–98
[2021-04-07] MEDS: AMPICILLIN 1 GM/NS 50 ML 1 GM/50 ML BAG IVPB ×4 (03:30→21:28)
[2021-04-07] MEDS: SIMETHICONE 125 MG CHEW TAB PO (03:36)
[2021-04-07] MEDS: traMADol HCL (*CRX) 50 MG TABLET PO (04:18)
[2021-04-07 04:43] LABS: Alveolar/Arterial O2 Gradient 58.2 mmHg; Base Excess ABG 6.8 mEq/l (+/-2.0); Fractional Inspired Oxygen 30 %; HCO3 ABG 33.5 mEq/l (22.0-26.0); Oxygen Content ABG 11.2 %vol (16.0-22.0); Oxygen Saturation ABG 95.4 % (95.0-100.0); Oxyhemoglobin 92.7 % THb (90.0-100.0); PO2 FiO2 Ratio Arterial Blood 2.77 %; Total Hemoglobin 8.5 g/dL (12.0-18.0); pH ABG 7.351 (7.350-7.450)
[2021-04-07 04:44] LABS: Modified Allen's Test Pass; PCO2 ABG 61.9 mmHg (35.0-45.0); Site Drawn RIGHT RADIAL
[2021-04-07 04:45] LABS: Device NON-INVASIVE VENT; Non-Invasive Inspiratory Pressure 25 CMH2O; Non-Invasive Vent Rate 22 /MIN
[2021-04-07 04:46] LABS: Non-Invasive Expiratory Pressure 10 CMH2O
[2021-04-07 05:31] LABS: Basophils Percent Auto 0.6 % (0.2-1.2); Eosinophils Absolute Auto 0.2 K/mm3 (0-0.3); Eosinophils Percent Auto 4.3 % (0-4.4); Hemoglobin 7.7 g/dL (14.0-18.0); Immature Granulocyte Absolute 0.03 K/mm3 (0.00-0.031); Immature Granulocyte Percent A 0.6 % (0-0.5); Immature Platelet Fraction Pct 5.3 % (0.9-11.2); Lymphocytes Absolute Auto 1.05 K/mm3 (0.9-3.2); Lymphocytes Percent Auto 19.5 % (18.3-44.2); Mean Corpuscular HGB Conc 25.7 g/dl (32-36); Mean Corpuscular Hemoglobin 22.9 pg (26-34); Mean Corpuscular Volume 89.3 fl (80-100); Mean Platelet Volume 10.3 fl (7.4-10.4); Monocytes Absolute Auto 0.7 K/mm3 (0.1-0.6); Monocytes Percent Auto 12.1 % (2.6-8.5); Neutrophils Absolute Auto 3.4 K/mm3 (1.3-6.7); Neutrophils Percent Auto 62.9 % (45.5-73.1); Nucleated Red Blood Cells Perc 0.4 % (0.0-0.2); Platelet Count Result 76 k/mm3 (150-375); Red Blood Count 3.36 M/mm3 (4.6-6.20); Red Cell Distribution Width 23.1 % (11.5-14.5); White Blood Count 5.4 K/mm3 (4.5-10.0)
[2021-04-07 05:43] LABS: INR 2.7; Prothrombin Time 29.1 Seconds (11.1-14.7)
[2021-04-07 05:46] LABS: Blood Urea Nitrogen 28 mg/dL (9-20); Calcium 8.9 mg/dL (8.4-10.2); Carbon Dioxide > 40 mmol/L (22-30); Chloride 98 mmol/L (98-107); Estimated CRCL calculation 91 ml/min; Estimated Glomerular Filt Rate 60; Glucose 86 mg/dL (75-110); Potassium 4.1 mmol/L (3.4-5.0); Sodium 146 mmol/L (137-145)
[2021-04-07 07:18] LABS: Hypochromasia 2+ (NORMAL); Platelet Estimate Decreased (Adequate)
[2021-04-07] MEDS: LACTULOSE 20 GM/30 ML UDC PO ×2 (08:23→21:27)
[2021-04-07] MEDS: POTASSIUM CHLORIDE 20 MEQ TABLET.ER PO ×2 (08:23→16:06)
[2021-04-07] MEDS: acetaZOLAMIDE TAB 250 MG TABLET 500 MG PO (08:23)
[2021-04-07] MEDS: FUROSEMIDE 40 MG TABLET PO ×2 (08:24→16:06)
[2021-04-07] MEDS: METOPROLOL TARTRATE 12.5 MG TABLET PO ×2 (08:24→21:27)
[2021-04-07] MEDS: DOCUSATE SODIUM 100 MG CAPSULE PO (09:16)
--- NOTE | 2021-04-07 10:38 | P.PNIM_ITS ---
Progress Note: A&P Assessment and Plan (1) Metabolic encephalopathy: Code(s): G93.41 - Metabolic encephalopathy Status: Acute Assessment and Plan: it is better now. Will continue current treatment. (2) Fluid overload: Code(s): E87.70 - Fluid overload, unspecified Status: Acute Assessment and Plan: Will continue diuresis and monitor closely. (3) Anemia: Code(s): D64.9 - Anemia, unspecified Status: Acute Assessment and Plan: Patient has chronic anemia. Will continue to trend while hospitalized. stable counts. (4) Renal failure: Code(s): N19 - Unspecified kidney failure Status: Acute Assessment and Plan: Patient most likely has chronic renal failure but records have been requested from [place] for review. Monitor while diuresing. His urine output has lowered since switching to oral diuretic. Will continue to monitor. Continue on fluid restriction of 1500 cc per day. (5) Elevated troponin: Code(s): R77.8 - Other specified abnormalities of plasma proteins Status: Acute Assessment and Plan: Likely related to CHF exacerbation and acute on chronic respiratory failure. seen by cardiology and no new recs given (6) CHF exacerbation: Code(s): I50.9 - Heart failure, unspecified Status: Acute Assessment and Plan: Cautious diuresis with close monitoring of renal function, blood pressures, and volume status. Echo results requested from [place] for review. cont current care cardio following no cardiac intervention at this time Recommend further workup outpatient after patient improves gera swich lasix to oral. add acetazolmaide for metabolic alkalosis. with inrreasing sodiumlevel, will loosen his fluid restriction to 1500 c c per day. contineu to monitor. urine looks a little darker as well. Chest x-ray repeat today with improving perihilar infiltrate and edema. Continue on BiPAP support every night and p.r.n. during daytime while sleeping (7) Acute on chronic respiratory failure with hypoxia and hypercapnia: Code(s): J96.21 - Acute and chronic respiratory failure with hypoxia; J96.22 - Acute and chronic respiratory failure with hypercapnia Status: Acute Assessment and Plan: pt placed on Trilogy AVAP AE consult pulmonary Dr Arauz POC reviewed w him and recommendations greatly appreciated repeat ABG with imporvement. Needs trilogy AVAP (8) Gastroesophageal reflux disease: Code(s): K21.9 - Gastro-esophageal reflux disease without esophagitis Status: Acute (9) Pulmonary hypertension: Code(s): I27.20 - Pulmonary hypertension, unspecified Status: Acute (10) Chronic obstructive pulmonary disease: Code(s): J44.9 - Chronic obstructive pulmonary disease, unspecified Status: Acute Assessment and Plan: No acute exacerbation. stable Continue p.r.n. nebs. NOT ACTIVELY WHEEZING (11) Chronic anticoagulation: Code(s): Z79.01 - residential (current) use of anticoagulants Status: Acute Assessment and Plan: Continue warfarin and monitor INR. (12) Atrial fibrillation: Code(s): I48.91 - Unspecified atrial fibrillation Status: Acute Assessment and Plan: He is rate controlled. ON WARFARIN INR elevated and warfarin held yesterday INR remains 3.5 yesterday, held coumadin 04/02 3.1. will resume 6 mg coumadin tonight. recheck in am . Coumadin dosing adjustment as needed (13) Tobacco dependence: C
[2021-04-07] MEDS: MONTELUKAST SODIUM 10 MG TABLET PO (21:28)
[2021-04-07] MEDS: rOPINIRole HCL 0.25 MG TABLET PO (21:28)
[2021-04-08] MEDS: AMPICILLIN 1 GM/NS 50 ML 1 GM/50 ML BAG IVPB ×2 (03:56→09:27)
[2021-04-08 05:38] LABS: INR 2.1; Prothrombin Time 23.8 Seconds (11.1-14.7)
[2021-04-08 06:00] VITALS: BP 100/57; PULSE 62; RESP 22; TEMP 35.9; O2SAT 98
--- NOTE | 2021-04-08 09:18 | PM.DS ---
DS: Admitting Diagnosis Admitting Diagnosis Admitting Diagnosis: Acute respiratory failure with hypoxia History of congestive Heart failure UTI Hypertension Morbid obesity DS: Discharge Diagnosis Discharge Diagnosis (1) Metabolic encephalopathy: Code(s): G93.41 - Metabolic encephalopathy Status: Acute Assessment and Plan: it is better now. Will continue current treatment. (2) Fluid overload: Code(s): E87.70 - Fluid overload, unspecified Status: Acute Assessment and Plan: Will continue diuresis and monitor closely. (3) Anemia: Code(s): D64.9 - Anemia, unspecified Status: Acute Assessment and Plan: Patient has chronic anemia. Will continue to trend while hospitalized. stable counts. (4) Renal failure: Code(s): N19 - Unspecified kidney failure Status: Acute Assessment and Plan: Patient most likely has chronic renal failure but records have been requested from [place] for review. Monitor while diuresing. His urine output has lowered since switching to oral diuretic. Will continue to monitor. Continue on fluid restriction of 1500 cc per day. (5) Elevated troponin: Code(s): R77.8 - Other specified abnormalities of plasma proteins Status: Acute Assessment and Plan: Likely related to CHF exacerbation and acute on chronic respiratory failure. seen by cardiology and no new recs given (6) CHF exacerbation: Code(s): I50.9 - Heart failure, unspecified Status: Acute Assessment and Plan: Cautious diuresis with close monitoring of renal function, blood pressures, and volume status. Echo results requested from [place] for review. cont current care cardio following no cardiac intervention at this time Recommend further workup outpatient after patient improves gera swich lasix to oral. add acetazolmaide for metabolic alkalosis. with inrreasing sodiumlevel, will loosen his fluid restriction to 1500 c c per day. contineu to monitor. urine looks a little darker as well. Chest x-ray repeat today with improving perihilar infiltrate and edema. Continue on BiPAP support every night and p.r.n. during daytime while sleeping (7) Acute on chronic respiratory failure with hypoxia and hypercapnia: Code(s): J96.21 - Acute and chronic respiratory failure with hypoxia; J96.22 - Acute and chronic respiratory failure with hypercapnia Status: Acute Assessment and Plan: pt placed on Trilogy AVAP AE consult pulmonary Dr Arauz POC reviewed w him and recommendations greatly appreciated repeat ABG with imporvement. Needs trilogy AVAP (8) Gastroesophageal reflux disease: Code(s): K21.9 - Gastro-esophageal reflux disease without esophagitis Status: Acute (9) Pulmonary hypertension: Code(s): I27.20 - Pulmonary hypertension, unspecified Status: Acute (10) Chronic obstructive pulmonary disease: Code(s): J44.9 - Chronic obstructive pulmonary disease, unspecified Status: Acute Assessment and Plan: No acute exacerbation. stable Continue p.r.n. nebs. NOT ACTIVELY WHEEZING (11) Chronic anticoagulation: Code(s): Z79.01 - moth exterminator (current) use of anticoagulants Status: Acute Assessment and Plan: Continue warfarin and monitor INR. (12) Atrial fibrillation: Code(s): I48.91 - Unspecified atrial fibrillation Status: Acute Assessment and Plan: He is rate controlled. ON WARFARIN INR elevated and warfarin held yesterday INR remains 3.5 yesterday, held coumadin 15 3.1. will resume 6 mg coumadin tonight. recheck in am . Coumadin dosing adjustment as needed (13) Tobacco dependence: Code(s): F17.200 - Nicotine dependence, unspecified, uncomplicated Status: Acute (14) Obstructive sleep apnea: Code(s): G47.33 - Obstructive sleep apnea (adult) (pediatric) Status: Acute Assessment and Plan: Bi
[2021-04-08] MEDS: LACTULOSE 20 GM/30 ML UDC PO (09:25)
[2021-04-08] MEDS: SIMETHICONE 125 MG CHEW TAB PO (09:25)
[2021-04-08] MEDS: acetaZOLAMIDE TAB 250 MG TABLET 500 MG PO (09:25)
[2021-04-08] MEDS: POTASSIUM CHLORIDE 20 MEQ TABLET.ER PO (09:26)
[2021-04-08 09:27] VITALS: PULSE 62
[2021-04-08] MEDS: METOPROLOL TARTRATE 12.5 MG TABLET PO (09:27)
[2021-04-08] MEDS: FUROSEMIDE 40 MG TABLET PO (09:27)
[2021-04-08 09:34] VITALS: O2SAT 95
--- NOTE | 2021-04-08 11:50 | WPDCDIQUERY2 ---
CDI Query Clarification Request Patient admitted 03/18/21 through the ED, a urinary catheter placed in ED. UC on 04/06 grew enterococcus and patient diagnosed with UTI, started on Rocephin, switched to Ampicillin. Please clarify cause and effect relationship between urinary catheter and UTI if known.
--- NOTE | 2021-04-08 13:58 | PM.IMPN ---
Progress Note: A&P Assessment and Plan (1) Metabolic encephalopathy: Code(s): G93.41 - Metabolic encephalopathy Status: Acute Assessment and Plan: it is better now. Will continue current treatment. (2) Fluid overload: Code(s): E87.70 - Fluid overload, unspecified Status: Acute Assessment and Plan: Will continue diuresis and monitor closely. (3) Anemia: Code(s): D64.9 - Anemia, unspecified Status: Acute Assessment and Plan: Patient has chronic anemia. Will continue to trend while hospitalized. stable counts. (4) Renal failure: Code(s): N19 - Unspecified kidney failure Status: Acute Assessment and Plan: Patient most likely has chronic renal failure but records have been requested from [place] for review. Monitor while diuresing. His urine output has lowered since switching to oral diuretic. Will continue to monitor. Continue on fluid restriction of 1500 cc per day. (5) Elevated troponin: Code(s): R77.8 - Other specified abnormalities of plasma proteins Status: Acute Assessment and Plan: Likely related to CHF exacerbation and acute on chronic respiratory failure. seen by cardiology and no new recs given (6) CHF exacerbation: Code(s): I50.9 - Heart failure, unspecified Status: Acute Assessment and Plan: Cautious diuresis with close monitoring of renal function, blood pressures, and volume status. Echo results requested from [place] for review. cont current care cardio following no cardiac intervention at this time Recommend further workup outpatient after patient improves gera swich lasix to oral. add acetazolmaide for metabolic alkalosis. with inrreasing sodiumlevel, will loosen his fluid restriction to 1500 c c per day. contineu to monitor. urine looks a little darker as well. Chest x-ray repeat today with improving perihilar infiltrate and edema. Continue on BiPAP support every night and p.r.n. during daytime while sleeping (7) Acute on chronic respiratory failure with hypoxia and hypercapnia: Code(s): J96.21 - Acute and chronic respiratory failure with hypoxia; J96.22 - Acute and chronic respiratory failure with hypercapnia Status: Acute Assessment and Plan: pt placed on Trilogy AVAP AE consult pulmonary Dr Arauz POC reviewed w him and recommendations greatly appreciated repeat ABG with imporvement. Needs trilogy AVAP (8) Gastroesophageal reflux disease: Code(s): K21.9 - Gastro-esophageal reflux disease without esophagitis Status: Acute (9) Pulmonary hypertension: Code(s): I27.20 - Pulmonary hypertension, unspecified Status: Acute (10) Chronic obstructive pulmonary disease: Code(s): J44.9 - Chronic obstructive pulmonary disease, unspecified Status: Acute Assessment and Plan: No acute exacerbation. stable Continue p.r.n. nebs. NOT ACTIVELY WHEEZING (11) Chronic anticoagulation: Code(s): Z79.01 - group home (current) use of anticoagulants Status: Acute Assessment and Plan: Continue warfarin and monitor INR. (12) Atrial fibrillation: Code(s): I48.91 - Unspecified atrial fibrillation Status: Acute Assessment and Plan: He is rate controlled. ON WARFARIN INR elevated and warfarin held yesterday INR remains 3.5 yesterday, held coumadin 04/02 3.1. will resume 6 mg coumadin tonight. recheck in am . Coumadin dosing adjustment as needed (13) Tobacco dependence: Code(s): F17.200 - Nicotine dependence, unspecified, uncomplicated Status: Acute (14) Obstructive sleep apnea: Code(s): G47.33 - Obstructive sleep apnea (adult) (pediatric) Status: Acute Assessment and Plan: BiPAP to be used while hospitalized discharge settings per pulm (15) Congestive heart failure: Code(s): I50.9 - Heart failure, unspecified Status: Acute (16) Morbid ob
== END 2021-04-08 13:05 | DRG 189 ==
LOC: ANHED 14:34 → ANHIMU 16:53 → ANH3MEDSUR 03-23 07:52 → ANHIMU 03-24 17:58 → ANH2MED 04-08 09:18 → ANH3MEDSUR 04-10 12:10 → ANHIMU 04-10 12:10
PROVIDERS: Emergency Medicine; Family Medicine; Hospitalist; Internal Medicine; Internal Medicine Critical Care Medicine; Internal Medicine Pulmonary Disease; Physician Assistant; Admitting Provider Family Medicine; Emergency Provider Emergency Medicine; PCP Family Medicine; Visit Provider Internal Medicine
DX: J96.21 Acute and chronic respiratory failure with hypoxia (principal); G93.41 Metabolic encephalopathy; E66.2 Morbid (severe) obesity with alveolar hypoventilation; Z68.43 Body mass index [BMI] 50.0-59.9, adult; N39.0 Urinary tract infection, site not specified; B95.2 Enterococcus as the cause of diseases classified elsewhere; J96.22 Acute and chronic respiratory failure with hypercapnia; I11.0 Hypertensive heart disease with heart failure; R77.8 Other specified abnormalities of plasma proteins; I50.9 Heart failure, unspecified; I27.20 Pulmonary hypertension, unspecified; I45.10 Unspecified right bundle-branch block; I48.91 Unspecified atrial fibrillation; J44.9 Chronic obstructive pulmonary disease, unspecified; K21.9 Gastro-esophageal reflux disease without esophagitis; N19 Unspecified kidney failure; D64.9 Anemia, unspecified; D75.1 Secondary polycythemia; Z66 Do not resuscitate; Z79.01 Long term (current) use of anticoagulants; Z87.891 Personal history of nicotine dependence; Z99.81 Dependence on supplemental oxygen; Z79.899 Other long term (current) drug therapy
CPT/HCPCS: 36415; 36600; 70450; 71045; 73502; 74018; 80048; 80053; 80061; 81001; 82140; 82375; 82550; 82805; 82948; 83050; 83605; 83735; 83880; 84100; 84439; 84443; 84480; 84484; 85025; 85027; 85055; 85610; 85730; 86140; 87040; 87077; 87086; 87088; 87186; 93005; 93306; 94002; 94003; 94762; 97110; 97161; 97165; 97530; 97535; 99291; A9270; C8929; J0290; J0456; J0696; J1940; J2405; Q9957

== ENCOUNTER 2021-04-08 14:44 | Observation (INO) | payer MEDICARE, SELFPAY ==
[2021-04-08] VITALS (7 sets, daily range): BP systolic 101–108; BP diastolic 52–64; PULSE 60–98; RESP 16–23; TEMP 36.1–36.8; O2SAT 94–100; BMI 52.0
--- NOTE | ~2021-04-08 | XR_ITS ---
EXAMINATION: XR chest 1V portable DATE: 04/08/2021 17:05 INDICATION: Shortness of breath. TECHNIQUE: A single frontal view of the chest was obtained on 2 radiographs. COMPARISON: Chest single view 04/06/2021 FINDINGS: There is a diffuse interstitial pattern, consistent with mild pulmonary edema. No pleural e ffusion or pneumothorax. Cardiomegaly is noted. IMPRESSION: 1. Mild pulmonary edema. 2. Cardiomegaly. Reviewed, dictated and finalized at location A.
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
[2021-04-08 17:30] LABS: Basophils Percent Auto 0.7 % (0.2-1.2); Eosinophils Absolute Auto 0.2 K/mm3 (0-0.3); Eosinophils Percent Auto 3.2 % (0-4.4); Hematocrit 31.3 % (42.0-52.0); Hemoglobin 8.1 g/dL (14.0-18.0); Immature Granulocyte Absolute 0.02 K/mm3 (0.00-0.031); Immature Granulocyte Percent A 0.3 % (0-0.5); Immature Platelet Fraction Pct 3.5 % (0.9-11.2); Lymphocytes Absolute Auto 0.99 K/mm3 (0.9-3.2); Lymphocytes Percent Auto 16.4 % (18.3-44.2); Mean Corpuscular HGB Conc 25.9 g/dl (32-36); Mean Corpuscular Hemoglobin 23.5 pg (26-34); Mean Corpuscular Volume 90.7 fl (80-100); Mean Platelet Volume 11.1 fl (7.4-10.4); Monocytes Absolute Auto 0.9 K/mm3 (0.1-0.6); Monocytes Percent Auto 14.1 % (2.6-8.5); Neutrophils Absolute Auto 3.9 K/mm3 (1.3-6.7); Neutrophils Percent Auto 65.3 % (45.5-73.1); Platelet Count Result 109 k/mm3 (150-375); Red Blood Count 3.45 M/mm3 (4.6-6.20); Red Cell Distribution Width 23.4 % (11.5-14.5)
[2021-04-08 17:49] LABS: Hypochromasia 2+ (NORMAL); Platelet Estimate Decreased (Adequate)
[2021-04-08 17:50] LABS: Ovalocytes 1+ (NORMAL); Stomatocytes 1+ (NORMAL)
--- NOTE | 2021-04-08 18:00 | ADMGEN ---
This patient, Stu Andujar, was admitted to Medical Room 253-01. Patient/family oriented to hospital policies and general routines including ID bracelet, bed and alarms, visiting hours, pain management, procedures, bathroom and other care routines, personal items, smoking policy, room service/diet, and visiting hours. Information on how to activate the Rapid Response Team has been discussed. Patient/Family are encouraged to report perceived risks to care and to ask questions if they do not understand what they are told or what they should do.
[2021-04-08 18:10] LABS: Alanine Aminotransferase 16 U/L (4-50); Albumin Level 3.8 g/dL (3.5-5.1); Alkaline Phosphatase 73 U/L (38-126); Aspartate Amino Transferase 49 U/L (17-59); Bilirubin,Total 1.8 mg/dL (0.2-1.3); Blood Urea Nitrogen 30 mg/dL (9-20); Carbon Dioxide > 40 mmol/L (22-30); Chloride 97 mmol/L (98-107); Estimated CRCL calculation 91 ml/min; Estimated Glomerular Filt Rate > 60; Glucose 111 mg/dL (75-110); Potassium 4.8 mmol/L (3.4-5.0); Sodium 144 mmol/L (137-145)
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
[2021-04-08] MEDS: MONTELUKAST SODIUM 10 MG TABLET PO (21:57)
[2021-04-08] MEDS: LACTULOSE 20 GM/30 ML UDC PO (21:57)
[2021-04-08] MEDS: rOPINIRole HCL 0.25 MG TABLET PO (21:57)
[2021-04-08] MEDS: METOPROLOL TARTRATE 12.5 MG TABLET PO (21:57)
[2021-04-08] MEDS: AMPICILLIN TRIHYDRATE 500 MG CAPSULE PO (22:18)
[2021-04-09] VITALS (9 sets, daily range): BP systolic 107–128; BP diastolic 63–70; PULSE 72–79; RESP 18–22; TEMP 36.2–36.7; O2SAT 92–98
[2021-04-09] MEDS: AMPICILLIN TRIHYDRATE 500 MG CAPSULE PO ×3 (03:33→21:00)
[2021-04-09 05:34] LABS: Basophils Percent Auto 0.5 % (0.2-1.2); Eosinophils Absolute Auto 0.2 K/mm3 (0-0.3); Eosinophils Percent Auto 3.8 % (0-4.4); Hematocrit 28.1 % (42.0-52.0); Hemoglobin 7.5 g/dL (14.0-18.0); Immature Granulocyte Absolute 0.02 K/mm3 (0.00-0.031); Immature Granulocyte Percent A 0.4 % (0-0.5); Immature Platelet Fraction Pct 3.6 % (0.9-11.2); Lymphocytes Absolute Auto 1.25 K/mm3 (0.9-3.2); Lymphocytes Percent Auto 22.6 % (18.3-44.2); Mean Corpuscular HGB Conc 26.7 g/dl (32-36); Mean Corpuscular Hemoglobin 23.8 pg (26-34); Mean Corpuscular Volume 89.2 fl (80-100); Monocytes Absolute Auto 0.8 K/mm3 (0.1-0.6); Monocytes Percent Auto 14.6 % (2.6-8.5); Neutrophils Absolute Auto 3.2 K/mm3 (1.3-6.7); Neutrophils Percent Auto 58.1 % (45.5-73.1); Platelet Count Result 95 k/mm3 (150-375); Red Blood Count 3.15 M/mm3 (4.6-6.20); Red Cell Distribution Width 23.3 % (11.5-14.5); White Blood Count 5.5 K/mm3 (4.5-10.0)
[2021-04-09 05:43] LABS: INR 1.9; Prothrombin Time 22.5 Seconds (11.1-14.7)
[2021-04-09 05:48] LABS: Anion Gap 6 mmol/L (8-16); Blood Urea Nitrogen 26 mg/dL (9-20); Calcium 8.9 mg/dL (8.4-10.2); Carbon Dioxide 39 mmol/L (22-30); Chloride 99 mmol/L (98-107); Estimated CRCL calculation 84 ml/min; Estimated Glomerular Filt Rate 60; Glucose 92 mg/dL (75-110); Potassium 3.9 mmol/L (3.4-5.0); Sodium 144 mmol/L (137-145)
[2021-04-09 06:04] LABS: Hypochromasia 1+ (NORMAL)
[2021-04-09 06:05] LABS: Anisocytosis 1+ (NORMAL)
[2021-04-09] MEDS: POTASSIUM CHLORIDE 20 MEQ TABLET.ER 40 MEQ PO ×2 (09:06→18:00)
[2021-04-09] MEDS: LACTULOSE 20 GM/30 ML UDC PO ×2 (09:07→21:00)
[2021-04-09] MEDS: METOPROLOL TARTRATE 12.5 MG TABLET PO ×2 (09:08→18:00)
[2021-04-09] MEDS: FOLIC ACID 1 MG TABLET PO (09:09)
[2021-04-09] MEDS: CHOLECALCIFEROL 1,000 UNITS TABLET 4000 UNITS PO (09:09)
[2021-04-09] MEDS: FUROSEMIDE 40 MG TABLET PO ×2 (09:09→18:00)
--- NOTE | 2021-04-09 11:18 | PM.IMPN ---
Progress Note: A&P Assessment and Plan (1) COPD (chronic obstructive pulmonary disease): Qualifiers: COPD type: unspecified COPD Qualified Code(s): J44.9 - Chronic obstructive pulmonary disease, unspecified Code(s): J44.9 - Chronic obstructive pulmonary disease, unspecified Status: Acute Assessment and Plan: Bronchodilators, monitor respiratory status (2) Chronic respiratory failure: Qualifiers: Respiratory failure complication: hypoxia and hypercapnia Qualified Code(s): J96.11 - Chronic respiratory failure with hypoxia; J96.12 - Chronic respiratory failure with hypercapnia Code(s): J96.10 - Chronic respiratory failure, unspecified whether with hypoxia or hypercapnia Status: Acute Assessment and Plan: Monitor respiratory status (3) Enterococcus UTI: Code(s): N39.0 - Urinary tract infection, site not specified; B95.2 - Enterococcus as the cause of diseases classified elsewhere Status: Acute Assessment and Plan: On ampicillin (4) Chronic obstructive pulmonary disease: Code(s): J44.9 - Chronic obstructive pulmonary disease, unspecified Status: Acute (5) Atrial fibrillation: Code(s): I48.91 - Unspecified atrial fibrillation Status: Acute Assessment and Plan: Rate control and anticoagulation (6) Congestive heart failure: Code(s): I50.9 - Heart failure, unspecified Status: Acute Assessment and Plan: Lasix (7) Obstructive sleep apnea: Code(s): G47.33 - Obstructive sleep apnea (adult) (pediatric) Status: Acute Assessment and Plan: BiPAP Additional Plan Patient was admitted because the facility was discharged to last time could not take care of his BiPAP need, plan to discuss case packer and sealer about discharge planning. Time Spent With Patient Time with patient: Greater than 35 minutes Subjective Date/time seen: 04/09/21 11:18 Patient is resting comfortably, denies shortness of breath or chest pain. Exam Const: General: cooperative and no acute distress HENMT: Head: normal to inspection Eyes: General: appearance normal, both eyes and all related structures Neck: Neck: normal visual inspection Chest: Chest palpation & inspection: normal inspection of the chest Resp: Effort & Inspection: normal respiratory effort Cardio: Jugular venous distension: no JVD Rate: regular rate GI: Inspection: normal to inspection and non-distended Objective Data Vital Signs Vital Signs: Vital Signs - 24 hr 04/08/21 14:51 04/08/21 18:00 04/08/21 18:30 Temperature 98.2 F 97.0 F L Pulse Rate 98 60 Respiratory Rate 18 18 Blood Pressure 108/64 101/52 L Pulse Oximetry 99 99 100 04/08/21 20:00 04/08/21 21:21 04/08/21 21:57 Temperature 97.0 F L Pulse Rate 82 70 Respiratory Rate 16 Blood Pressure 108/62 Pulse Oximetry 100 99 04/08/21 22:31 04/09/21 02:34 04/09/21 05:39 Temperature 97.1 F L Pulse Rate 70 74 79 Respiratory Rate 23 H 22 H 20 Blood Pressure 110/65 Pulse Oximetry 94 96 92 04/09/21 08:57 04/09/21 09:08 Temperature Pulse Rate 79 Respiratory Rate Blood Pressure Pulse Oximetry 94 Intake/Output Intake/Output: Intake & Output 04/06/21 04/07/21 04/08/21 04/09/21 23:59 23:59 23:59 23:59 Output Total 900 Balance -900 Meds/Results Medications: Active Medications Generic Name Dose Route Start Last Admin Trade Name Freq PRN Reason Stop Dose Admin Acetazolamide 500 mg 04/09/21 10:32 Acetazolamide Tab 250 Mg Tablet PO QAM DIANA Albuterol 2.5 mg 04/08/21 21:32 Albuterol Sulfate Neb 2.5 Mg/0.5 Ml Inh INHALATION Q6H PRN Shortness Of Breath Ampicillin 500 mg 04/08/21 22:00 04/09/21 09:07 Ampicillin Trihydrate 500 Mg Capsule PO 500 mg Q6H DIANA Administration Docusate Sodium 100 mg 04/08/21 21:23 Docusate Sodium 100 Mg Capsule PO Q12H PRN Constipation Folic
[2021-04-09] MEDS: acetaZOLAMIDE TAB 250 MG TABLET 500 MG PO (11:26)
--- NOTE | 2021-04-09 12:48 | PM.DS ---
DS: Admitting Diagnosis Admitting Diagnosis Admitting Diagnosis: Chronic respiratory failure CHF COPD DS: Discharge Diagnosis Discharge Diagnosis (1) COPD (chronic obstructive pulmonary disease): Qualifiers: COPD type: unspecified COPD Qualified Code(s): J44.9 - Chronic obstructive pulmonary disease, unspecified Code(s): J44.9 - Chronic obstructive pulmonary disease, unspecified Status: Acute (2) Chronic respiratory failure: Qualifiers: Respiratory failure complication: hypoxia and hypercapnia Qualified Code(s): J96.11 - Chronic respiratory failure with hypoxia; J96.12 - Chronic respiratory failure with hypercapnia Code(s): J96.10 - Chronic respiratory failure, unspecified whether with hypoxia or hypercapnia Status: Acute DS: Summary Hospital Course Reason for hospitalization: Need for placement in a facility that can care for patient with BiPAP need. Hospital Course: Patient [facility] but that facility could not care for his BiPAP needs, so patient was readmitted to our hospital, I discussed the case with care analyst reported that the facility has the ability to take care of the patient and provide BiPAP support. Plan to discharge patient [facility] facility on the same medication Time Spent with Patient Time attestation: Total time spent providing and/or coordinating discharge services: Time spent: Greater than 30 minutes DS: Data Data Completed and Pending Labs on day of discharge: Labs from last 24 hours 04/09/21 04/09/21 04/09/21 05:24 05:24 05:24 WBC 5.5 RBC 3.15 L Hgb 7.5 L Hct 28.1 L MCV 89.2 MCH 23.8 L MCHC 26.7 L RDW 23.3 H Plt Count 95 L MPV 11.0 H Immature Gran % (Auto) 0.4 Neut % (Auto) 58.1 Lymph % (Auto) 22.6 Kerr % (Auto) 14.6 H Eos % (Auto) 3.8 Baso % (Auto) 0.5 Lymph # (Auto) 1.25 Kerr # (Auto) 0.8 H Eos # (Auto) 0.2 Baso # (Auto) 0.0 Abs Immat Gran (auto) 0.02 Absolute Neuts (auto) 3.2 Absolute Nucleated RBC 0.0 Nucleated RBC % 0.0 Platelet Estimate Slightly decreased % Immature Plt Fraction 3.6 Hypochromasia 1+ Anisocytosis 1+ Ovalocytes Stomatocytes PT 22.5 H INR 1.9 Sodium 144 Potassium 3.9 Chloride 99 Carbon Dioxide 39 H Anion Gap 6 L BUN 26 H Creatinine 1.20 Estim Creat Clear Calc 84 Estimated GFR 60 Glucose 92 Calcium 8.9 Total Bilirubin AST ALT Alkaline Phosphatase Total Protein Albumin 04/08/21 04/08/21 17:22 17:22 WBC 6.0 RBC 3.45 L Hgb 8.1 L Hct 31.3 L MCV 90.7 MCH 23.5 L MCHC 25.9 L RDW 23.4 H Plt Count 109 L MPV 11.1 H Immature Gran % (Auto) 0.3 Neut % (Auto) 65.3 Lymph % (Auto) 16.4 L Kerr % (Auto) 14.1 H Eos % (Auto) 3.2 Baso % (Auto) 0.7 Lymph # (Auto) 0.99 Kerr # (Auto) 0.9 H Eos # (Auto) 0.2 Baso # (Auto) 0.0 Abs Immat Gran (auto) 0.02 Absolute Neuts (auto) 3.9 Absolute Nucleated RBC 0.0 Nucleated RBC % 0.0 Platelet Estimate Decreased % Immature Plt Fraction 3.5 Hypochromasia 2+ Anisocytosis Ovalocytes 1+ Stomatocytes 1+ PT INR Sodium 144 Potassium 4.8 Chloride 97 L Carbon Dioxide > 40 H Anion Gap BUN 30 H Creatinine 1.10 Estim Creat Clear Calc 91 Estimated GFR > 60 Glucose 111 H Calcium 9.0 Total Bilirubin 1.8 H AST 49 ALT 16 Alkaline Phosphatase 73 Total Protein 8.0 Albumin 3.8 Discharge Plan Discharge Discharging Clinician: Marcos Ybarra Patient Disposition: SNF Activity: as tolerated Diet: regular Patient Instructions: Heart Failure (DC), Pain Management (DC) Stand Alone Forms: General Discharge Information Discharge Medications: Continued ipratropium-albuterol 0.5 mg-3 mg(2.5 mg base)/3 mL Solution For Nebulization 3 ml INHALATION Q6H
[2021-04-09] MEDS: ACETAMINOPHEN 325 MG TABLET 650 MG PO (14:10)
[2021-04-09] MEDS: HYOSCYAMINE SULFATE 0.0625 MG TABLET PO (15:27)
[2021-04-09] MEDS: WARFARIN (*PBKC) 7.5 MG TABLET PO (18:01)
[2021-04-09] MEDS: MONTELUKAST SODIUM 10 MG TABLET PO (21:00)
[2021-04-09] MEDS: rOPINIRole HCL 0.25 MG TABLET PO (21:00)
[2021-04-10 02:22] VITALS: PULSE 72; RESP 22; O2SAT 95
[2021-04-10] MEDS: AMPICILLIN TRIHYDRATE 500 MG CAPSULE PO (03:59)
== END 2021-04-10 05:05 ==
LOC: ANHED 16:25 → ANH2MED 17:27
PROVIDERS: Internal Medicine; Admitting Provider Family Medicine; Emergency Provider Emergency Medicine; PCP Internal Medicine; Visit Provider Emergency Medicine
DX: J44.9 Chronic obstructive pulmonary disease, unspecified (principal); J96.11 Chronic respiratory failure with hypoxia; J96.12 Chronic respiratory failure with hypercapnia; G47.33 Obstructive sleep apnea (adult) (pediatric); I50.9 Heart failure, unspecified; Z87.891 Personal history of nicotine dependence
CPT/HCPCS: 36415; 71045; 80048; 80053; 85025; 85055; 85610; 94002; 94003; 97165; 99285; A9270; G0378

== ENCOUNTER 2021-04-11 13:32 | Emergency (ER) | payer MEDICARE, SELFPAY ==
[2021-04-11] VITALS (41 sets, daily range): BP systolic 40–141; BP diastolic 22–91; PULSE 63–97; RESP 15–25; TEMP 36.7; O2SAT 51–100
--- NOTE | ~2021-04-11 | XR_ITS ---
XR chest 1V portable 04/11/2021 14:04 Indication: Altered mental status. Shortness of breath. Procedure: AP portable chest Comparison: 04/08/2021 Findings: Severely enlarged cardiopericardial silhouette. Enlarged pulmonary arteries consistent with pulmonary hypertension. No focal air space disease, pulmonary edema, pleural effusion or suspected p neumothorax. Impression: 1: No acute cardiopulmonary disease. 2: Severely enlarged cardiopericardial silhouette. Reviewed, dictated and finalized at location B. Impression: 1: No acute cardiopulmonary disease. 2: Severely enlarged cardiopericardial silhouette.
--- NOTE | 2021-04-11 13:37 | ECG_ITS ---
Measurements Intervals [place] Rate: 76 P: ME: 0 QRS: 158 QRSD: 185 T: 6 QT: 452 QTc: 511 Interpretive Statements ATRIAL FIBRILLATION RIGHT AXIS DEVIATION RIGHT BUNDLE BRANCH BLOCK BASELINE ARTIFACT- I, II, III, AVR, AVL, AVF, V1-V6 ABNORMAL ECG Electronically Signed On 04-11-2021 14:34:05 CDT by Bam Arzate D.O.
--- NOTE | 2021-04-11 13:43 | ED.GENADULT ---
HPI - General Adult General Chief complaint: Altered Mental Status Stated complaint: AMS Time Seen by Provider: 04/11/21 13:42 Source: EMS and RN notes reviewed Mode of arrival: EMS Limitations: clinical condition History of Present Illness HPI narrative: Patient 66 years old white male brought to the emergency room by ambulance from [facility] with acute change of mental status, roughly 50 minutes prior to arrival to the emergency room. The arrived with the patient, had is telling me that patient was discharged from our hospital yesterday after 4 weeks hospitalization. And also was 2 weeks prior to that at a [facility]. Currently patient is DNR. requested to change the CODE STATUS to comfort measures only. And not to send patient back to [facility]. Is okay for hospice at home or in the hospital. Related Data Allergies Allergy/AdvReac Type Severity Reaction Status Date / Time No Known Allergies Allergy Verified 04/11/21 17:21 Review of Systems Review of Systems: ROS unobtainable: Yes unobtainable due to mental status PMFSH Social History Social History Gender identity (if verbalized by the patient): Male Exam Narrative: Exam Narrative: General appearance: Well-developed, well-nourished, morbidly obese, BiPAP on Skin: Normal color Head: Normocephalic, nontraumatic Eyes: Clear conjunctiva ENT: Oropharynx normal, ears normal, nose normal Neck: Supple, nontender Chest and respiratory: , severe labored breathing, diminution of air entry bilaterally Heart: Regular rate/rhythm Abdomen: Soft, nontender, no organomegaly, quiet bowel sounds Vascular: Normal peripheral pulses, normal capillary refill. Course Course Emergency Course: Guarded Vital Signs Vital signs: Vital Signs Temperature 36.7 C 04/11/21 13:34 Pulse Rate 82 04/11/21 13:34 Respiratory Rate 21 H 04/11/21 13:34 Blood Pressure 141/91 H 04/11/21 13:34 Pulse Oximetry 100 04/11/21 13:34 Temperature 36.7 C 04/11/21 13:34 Pulse Rate 88 04/11/21 18:22 Respiratory Rate 16 04/11/21 18:22 Blood Pressure 102/82 04/11/21 18:22 Pulse Oximetry 96 04/11/21 18:22 Medical Decision Making MDM Narrative Medical decision making narrative: Currently patient is comfort measures only. The declined any labs or any further medical evaluation. Would like to get hospice at home or in the hospital. Differential Diagnosis Differential Diagnosis: Hospice case, chronic gradual deterioration, failure to maintain life out of the hospital Vital Signs Vital Signs: Vital Signs Temperature 36.7 C 04/11/21 13:34 Pulse Rate 82 04/11/21 13:34 Respiratory Rate 21 H 04/11/21 13:34 Blood Pressure 141/91 H 04/11/21 13:34 Pulse Oximetry 100 04/11/21 13:34 Temperature 36.7 C 04/11/21 13:34 Pulse Rate 88 04/11/21 18:22 Respiratory Rate 16 04/11/21 18:22 Blood Pressure 102/82 04/11/21 18:22 Pulse Oximetry 96 04/11/21 18:22 Lab Data Result diagrams: 04/11/21 13:49 04/11/21 13:49 Labs: Lab Results 04/11/21 04/11/21 04/11/21 Range/Units 13:49 13:49 13:49 WBC 10.0 (4.5-10.0) K/mm3 RBC 3.32 L (4.6-6.20) M/mm3 Hgb 7.9 L (14.0-18.0) g/dL Hct 30.0 L (42.0-52.0) % MCV 90.4 (80-100) fl MCH 23.8 L (26-34) pg MCHC 26.3 L (32-36) g/dl RDW 24.1 H (11.5-14.5) % Plt Count 132 L (150-375) k/mm3 MPV 10.5 H (7.4-10.4) fl Immature Gran % (Auto) 0.6 H (0-0.5) % Neut % (Auto) 66.9 (45.5-73.1) % Lymph % (Auto) 11.6 L (18.3-44.2) % [place] % (Auto) 19.8 H (2.6-8.5) % Eos % (Auto
[2021-04-11 13:47] LABS: Alveolar/Arterial O2 Gradient 488.6 mmHg; Base Excess ABG 1.8 mEq/l (+/-2.0); Fractional Inspired Oxygen 100 %; HCO3 ABG 29.5 mEq/l (22.0-26.0); Oxygen Content ABG 12.6 %vol (16.0-22.0); Oxygen Saturation ABG 98.7 % (95.0-100.0); Oxyhemoglobin 96.8 % THb (90.0-100.0); PO2 ABG 158.8 mmHg (80.0-100.0); PO2 FiO2 Ratio Arterial Blood 1.59 %
[2021-04-11 13:48] LABS: Device OTHER DEVICE; Modified Allen's Test Pass; PCO2 ABG 65.6 mmHg (35.0-45.0); Site Drawn RIGHT RADIAL; pH ABG 7.271 (7.350-7.450)
--- NOTE | 2021-04-11 14:01 | PC.NURSE ---
Per respiratory at bedside: BIPAP settings: 18/8, R 16, 50%
[2021-04-11 14:11] LABS: Lactic Acid Reflex 1.8 mmol/L (0.7-2.1)
[2021-04-11 14:12] LABS: Alanine Aminotransferase 172 U/L (4-50); Albumin Level 3.8 g/dL (3.5-5.1); Alkaline Phosphatase 81 U/L (38-126); Anion Gap 8 mmol/L (8-16); Aspartate Amino Transferase 373 U/L (17-59); Bilirubin,Total 2.7 mg/dL (0.2-1.3); Blood Urea Nitrogen 34 mg/dL (9-20); Calcium 9.3 mg/dL (8.4-10.2); Carbon Dioxide 37 mmol/L (22-30); Chloride 98 mmol/L (98-107); Estimated CRCL calculation 43 ml/min; Estimated Glomerular Filt Rate 35; Glucose 106 mg/dL (75-110); Potassium 5.3 mmol/L (3.4-5.0); Sodium 143 mmol/L (137-145)
[2021-04-11 14:14] LABS: Add Urine Microscopic? YES; Appearance Urine Cloudy (Clear); Bacteria Urine Trace /hpf; Bilirubin Urine 1+ (Negative); Blood Urine 2+ (Negative); Color Urine Amber (Yellow); Glucose Urine UA Negative (Negative); Hyaline Casts Urine 15-19 /lpf; Ketones Urine Negative (Negative); Leukocyte Esterase Ur 1+ LEU/UL (Negative); Mucus Urine Rare /lpf; Nitrate Urine Negative (Negative); Protein Urine 2+ mg/dL (Negative); RBC Urine 21-50 /hpf (0-2); Specific Grav Ur 1.021 (1.001-1.035); Squamous Epithelial Cell Urine Occasional /hpf (Few)
--- NOTE | 2021-04-11 14:14 | PC.NURSE ---
Per DR Garcia, CT scan cancelled. Kateryna from CT aware.
[2021-04-11 14:15] LABS: INR 2.7; Prothrombin Time 29.5 Seconds (11.1-14.7)
[2021-04-11 14:16] LABS: Basophils Absolute Auto 0.1 K/mm3 (0.0-0.1); Basophils Percent Auto 0.5 % (0.2-1.2); Eosinophils Absolute Auto 0.1 K/mm3 (0-0.3); Eosinophils Percent Auto 0.6 % (0-4.4); Hemoglobin 7.9 g/dL (14.0-18.0); Immature Granulocyte Absolute 0.06 K/mm3 (0.00-0.031); Immature Granulocyte Percent A 0.6 % (0-0.5); Immature Platelet Fraction Pct 5.7 % (0.9-11.2); Lymphocytes Absolute Auto 1.16 K/mm3 (0.9-3.2); Lymphocytes Percent Auto 11.6 % (18.3-44.2); Mean Corpuscular HGB Conc 26.3 g/dl (32-36); Mean Corpuscular Hemoglobin 23.8 pg (26-34); Mean Corpuscular Volume 90.4 fl (80-100); Mean Platelet Volume 10.5 fl (7.4-10.4); Monocytes Percent Auto 19.8 % (2.6-8.5); Neutrophils Absolute Auto 6.7 K/mm3 (1.3-6.7); Neutrophils Percent Auto 66.9 % (45.5-73.1); Nucleated Red Blood Cells Perc 0.4 % (0.0-0.2); Partial Thromboplastin Time 37.7 SECONDS (22.3-36.8); Platelet Count Result 132 k/mm3 (150-375); Red Blood Count 3.32 M/mm3 (4.6-6.20); Red Cell Distribution Width 24.1 % (11.5-14.5)
[2021-04-11 14:21] LABS: NT Pro B Type Natriuretic Pept 4450 pg/mL (5-100)
[2021-04-11 14:46] LABS: Ammonia 18 umol/L (9-30)
--- NOTE | 2021-04-11 14:59 | PCCCNOTE ---
Referral request information faxed to [facility] per patient's 's request
[2021-04-11] MEDS: ONDANSETRON INJ 4 MG/2 ML VIAL IV PUSH (17:25)
[2021-04-11] MEDS: MORPHINE SULFATE (*CRX) 2 MG/ML INJ IV PUSH (17:25)
--- NOTE | 2021-04-11 17:52 | PC.NURSE ---
Hospice here at this time to discuss POC w/ family at bedside.
--- NOTE | 2021-04-11 18:28 | PC.NURSE ---
Per pt family member, requesting something due to increased agitation. Per Dr Jose purcell to give 2 MG IVP Morphine.
--- NOTE | 2021-04-11 18:29 | PC.NURSE ---
Pt daughter approached nurses station, states He is more alert and awake now, he is trying to take off his mask and is trying to talk to me. I cannot understand him. Can you take him off the BIPAP and put him on oxygen so I can understand what he is trying to tell me? Discussed w/ Dr Garcia.
--- NOTE | 2021-04-11 18:31 | PC.NURSE ---
Per Dr Garcia, okay to take pt off BIPAP and place on 6 L NC. Called Respiratory to make aware.
[2021-04-11] MEDS: MORPHINE SULFATE (*CRX) 4 MG/ML INJ 2 MG IV PUSH (18:37)
--- NOTE | 2021-04-11 19:33 | PC.NURSE ---
[facility] Admission Nurse leaving facility after updating pt's family on plan of care. Alba Forbes RN; [phone]; [phone]; Please call with any questions/concerns re: hospice. Reports hospice nurse with see pt daily.
[2021-04-11] MEDS: LORazepam INJ (*CRX) 2 MG/ML VIAL 1 MG IV PUSH (20:00)
== END 2021-04-11 20:57 | disposition hospice, inpatient (51) ==
PROVIDERS: Emergency Medicine; Emergency Provider Emergency Medicine; PCP Internal Medicine
DX: J96.10 Chronic respiratory failure, unspecified whether with hypoxia or hypercapnia (principal); J44.9 Chronic obstructive pulmonary disease, unspecified; I48.91 Unspecified atrial fibrillation; I50.9 Heart failure, unspecified; N19 Unspecified kidney failure; I27.20 Pulmonary hypertension, unspecified; F17.200 Nicotine dependence, unspecified, uncomplicated; Z79.01 Long term (current) use of anticoagulants; I45.10 Unspecified right bundle-branch block
CPT/HCPCS: 36415; 36600; 71045; 80053; 81001; 82140; 82805; 83605; 83880; 85025; 85055; 85610; 85730; 87040; 87086; 93005; 94002; 96374; 96375; 96376; 99285; J2060; J2270; J2405

== ENCOUNTER 2021-04-11 19:00 | HOS | payer OTHER, SELFPAY ==
[2021-04-11 20:30] VITALS: BP 75/58; PULSE 95; RESP 14; TEMP 36.4; O2SAT 100
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
[2021-04-11 20:40] VITALS: PULSE 95; RESP 14; O2SAT 100; BMI 54.5
[2021-04-12] MEDS: LORazepam INJ (*CRX) 2 MG/ML VIAL 1 MG IV PUSH ×3 (02:19→21:11)
[2021-04-12 07:35] VITALS: O2SAT 90
[2021-04-12] MEDS: MORPHINE SULFATE INJ (*CRX) 50 MG in SODIUM CHLORIDE 0.9% IV 95 ML IV CONT (09:01)
--- NOTE | 2021-04-12 09:27 | PM.IMPN ---
Progress Note: A&P Assessment and Plan (1) Altered mental status: Code(s): R41.82 - Altered mental status, unspecified Status: Acute (2) COPD (chronic obstructive pulmonary disease): Qualifiers: COPD type: unspecified COPD Qualified Code(s): J44.9 - Chronic obstructive pulmonary disease, unspecified Code(s): J44.9 - Chronic obstructive pulmonary disease, unspecified Status: Acute (3) Acute on chronic respiratory failure with hypoxia and hypercapnia: Code(s): J96.21 - Acute and chronic respiratory failure with hypoxia; J96.22 - Acute and chronic respiratory failure with hypercapnia Status: Acute (4) Obstructive sleep apnea: Code(s): G47.33 - Obstructive sleep apnea (adult) (pediatric) Status: Acute (5) Congestive heart failure: Code(s): I50.9 - Heart failure, unspecified Status: Acute Additional Plan Continue morphine drip (RN states this was held for clarification because 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 He has medications available for anxiety and for breakthrough pain. Continue comfort measures. Subjective Date/time seen: 04/12/21 09:27 Interval history: 66yo male with morbid obesity, chronic respiratory failure, COPD, POLO and atrial fibrillation who presents from the senior living for altered mental status. Patient sedated and unable to provide hx. Family in the room and they state patient has been comfortable. Review of Systems Review of Systems: ROS unobtainable: Yes unobtainable due to mental status Exam Narrative: Exam Narrative: AF 97.5 75/58 95 14 90% 6L Gen -appears comfortable Chest -lungs clear anteriorly CV - S1/S2 Abd - Soft, obese Ext - positive pedal edema Neuro - sedated Skin - chronic venous stasis skin changes Objective Data Vital Signs Vital Signs: Vital Signs - 24 hr 04/11/21 20:30 04/11/21 20:40 04/12/21 07:35 Temperature 97.5 F L Pulse Rate 95 95 Respiratory Rate 14 14 Blood Pressure 75/58 L Pulse Oximetry 100 100 90 Intake/Output Intake/Output: Intake & Output 04/09/21 04/10/21 04/11/21 04/12/21 23:59 23:59 23:59 23:59 Output Total 75 Balance -75 Meds/Results Medications: Active Medications Generic Name Dose Route Start Last Admin Trade Name Freq PRN Reason Stop Dose Admin Acetaminophen 650 mg 04/11/21 22:06 Acetaminophen 650 Mg Suppository RECTAL Q4H PRN Mild Pain (1-3) or Fever Artificial Tears 1 drop 04/11/21 20:19 Artificial Tears Op Soln 15 Ml Bottle EACH EYE Q4H PRN Dry Eye(s) Bisacodyl 10 mg 04/11/21 22:03 Bisacodyl 10 Mg Suppository RECTAL QAM PRN Constipation Hyoscyamine 0.125 mg 04/11/21 22:10 Hyoscyamine Sulfate 0.125 Mg Tablet SUBLINGUAL Q4H PRN Excessive secretions Morphine Sulfate 50 mg/ Sodium 100 mls @ 4 mls/hr 04/12/21 08:20 04/12/21 09:01 Chloride IV CONT 2 mg/hr .Q24H DIANA 4 mls/hr Administration 2 MG/HR Lorazepam 1 mg 04/11/21 20:19 04/12/21 09:11 Lorazepam Inj (*Crx) 2 Mg/Ml Vial IV PUSH 1 mg Q2H PRN Administration Anxiety or air hunger Morphine Sulfate 2 mg 04/11/21 22:06 Morphine Sulfate (*Crx) 2 Mg/Ml Inj IV PUSH Q2H PRN Pain, air hunger
[2021-04-12] MEDS: HYOSCYAMINE SULFATE 0.125 MG TABLET SUBLINGUAL (18:20)
[2021-04-12 18:45] VITALS: BP 63/46; PULSE 87; RESP 16; TEMP 36.2; O2SAT 93
[2021-04-12 20:00] VITALS: O2SAT 92
--- NOTE | 2021-04-13 02:40 | PC.NURSE ---
Patient spent the shift with and daughter. At 2320, RN was told that he had stopped breathing, this was confirmed by chest auscultation and checking for corneal response by Mark REINA. Nurse Alexsandra also confirmed this after auscultating his chest, making the time of 2333. Body preparation was delayed until his Grandson came and finished visiting. [facility] and [facility] home was called at 0131 after family had left. The remains were then cleaned and placed in a body bag. The mortician received his remains at 0235. Morphine was disposed of with Alexsandra REINA and documented on the narcotics disposal sheet.
--- NOTE | 2021-04-18 07:00 | PM.DDS ---
Discharge Sum: Prov Provider Primary care physician: Martin Ferraro, Admitting provider: Yang Walter MD Attending physician on admission: Yang Walter Discharge Sum: Diag PCOD Acute respiratory failure from COPD and POLO Contributing Factors (1) Altered mental status: (2) COPD (chronic obstructive pulmonary disease): (3) Acute on chronic respiratory failure with hypoxia and hypercapnia: (4) Obstructive sleep apnea: (5) Congestive heart failure: Discharge Sum: Summary Date and Time Date of admission: 04/11/21 19:00 Date of : 04/12/21 Time of : 23:32 Summary Details: 66yo male with morbid obesity, chronic respiratory failure, COPD, POLO and atrial fibrillation who presents from the intermediate for altered mental status. He has a history of presenting with altered mental status attributed to hypercarbia. Despite being compliant with the Trilogy unit, he continues to have intermittent episodes of presumed CO2 narcosis with confusion, hallucinations, and episodes of decreased responsiveness. On arrival to the emergency department, he was obtunded and was started on BiPAP. ABG 7.27/666/159 on 10L. CXR was clear. He remained restless and agitated with the BiPAP, trying to remove it. Family members have decided that they want to keep him comfortable and so he was admitted to hospice. He was treated with a morphine drip. He was kept comfortable. He in the late evening hours of 04/12/21. Additional Data Attending physician: Juana Rahman PA-C Advance directives: Yes Hospice patient?: Yes
== END 2021-04-12 23:32 | disposition expired | DRG 951 ==
PROVIDERS: Admitting Provider Family Medicine; PCP Internal Medicine; Visit Provider Physician Assistant
DX: Z51.5 Encounter for palliative care (principal); J96.21 Acute and chronic respiratory failure with hypoxia; J96.22 Acute and chronic respiratory failure with hypercapnia; Z68.43 Body mass index [BMI] 50.0-59.9, adult; I48.20 Chronic atrial fibrillation, unspecified; G47.33 Obstructive sleep apnea (adult) (pediatric); I50.9 Heart failure, unspecified; J44.9 Chronic obstructive pulmonary disease, unspecified; R41.82 Altered mental status, unspecified; E66.01 Morbid (severe) obesity due to excess calories; K21.9 Gastro-esophageal reflux disease without esophagitis; Z79.01 Long term (current) use of anticoagulants; Z87.891 Personal history of nicotine dependence; Z66 Do not resuscitate
CPT/HCPCS: A9270; J2060; J2270